=== PATIENT | female | born 1990 | race African-American/Black ===

== ENCOUNTER 2022-02-20 04:11 | Emergency (ER) | payer OTHER, SELFPAY ==
[2022-02-20 04:29] VITALS: BP 126/61; PULSE 82; RESP 17; TEMP 36.9; O2SAT 100; BMI 27.3
[2022-02-20 05:37] LABS: Hematocrit 41.6 % (37.0-47.0); Hemoglobin 13.5 g/dl (12.0-16.0); Mean Corpuscular HGB Conc 32.5 g/dl (31.0-35.0); Mean Corpuscular Hemoglobin 26.8 pg (27.0-33.0); Mean Corpuscular Volume 82.7 fL (80.0-98.0); Mean Platelet Volume 9.5 fL (9.4-12.3); Platelet Count 236 X10*3/uL (160-400); Red Blood Count 5.03 X10*6/uL (4.20-5.50); Red Cell Distribution Width 13.2 % (11.0-16.0); White Blood Count 4.7 X10*3/uL (4.8-10.8)
--- NOTE | 2022-02-20 05:50 | ED.ABDPAIN ---
HPI - Abdominal Pain General Chief Complaint: Abdominal Pain Stated Complaint: waves of stomach pain Time Seen by Provider: 02/20/22 05:50 Source: patient Mode of arrival: ambulatory Limitations: no limitations History of Present Illness HPI narrative: No significant past medical history noticed pain in upper abdomen most on the left side for last 24 hours without any nausea vomiting eating and drinking okay pain gets better after he had no fever or chills Related Data Previous Rx's Medication Instructions Recorded omeprazole 20 mg capsule,delayed 20 mg PO DAILY #30 caps 02/20/22 release Allergies Allergy/AdvReac Type Severity Reaction Status Date / Time ondansetron [From Zofran] Allergy Palpitation Verified 02/20/22 04:27 s Review of Systems Review of Systems Yes all other systems are reviewed and are negative [facility] Social History Social History Advance Directives: No Advance Directives Information Provided: Yes Physical Exam ED Vital Signs: Vital Signs - 24 hr 02/20/22 04:29 02/20/22 05:59 Temperature 98.5 F 97.6 F Pulse Rate 82 69 Respiratory Rate 17 18 Blood Pressure 126/61 126/76 Pulse Oximetry 100 96 Oxygen Delivery Method Room Air Room Air BMI result Body Mass Index 27.3 Appearance: Alert. Oriented X3. No acute distress. Eyes: PERRLA, No Nystagmus ENT: Pharynx normal. Oral Mucosa moist Neck: Normal inspection. Neck supple. CVS: Normal heart rate and rhythm. Pulses normal. Respiratory: No respiratory distress. Equal air entry bilateral, no wheezing/rales/rhonchi Abdomen: Soft mild left upper abdomen tenderness no rebound tenderness or guarding Bowel sounds are present, no mass palpable, no CVA tenderness Skin: Skin warm and dry. Normal skin color. Normal skin turgor. Extremities: No lower extremity edema. No calf tenderness Neuro: Oriented X 3. No motor deficit. No sensory deficit.No cerebellar signs , cranial nerves II-XII intact MDM - Abdominal Pain MDM Narrative Medical decision making narrative: Patient nonspecific abdominal pain likely gastritis labs stable urine negative discharge patient home on [facility] Lab Data Attestation: I reviewed the patient's lab results. Result diagrams: 02/20/22 05:32 02/20/22 05:32 Labs: Lab Results 02/20/22 02/20/2202/20/22 Range/Units 05:32 05:32 06:04 WBC 4.7 L (4.8-10.8) X10*3/uL RBC 5.03 (4.20-5.50) X10*6/uL Hgb 13.5 (12.0-16.0) g/dl Hct 41.6 (37.0-47.0) % MCV 82.7 (80.0-98.0) fL MCH 26.8 L (27.0-33.0) pg MCHC 32.5 (31.0-35.0) g/dl RDW 13.2 (11.0-16.0) % Plt Count 236 (160-400) X10*3/uL MPV 9.5 (9.4-12.3) fL Absolute Nucleated RBC 0.000 (0.0-0.012) X10*3/uL Nucleated RBC % (auto) 0.0 (0.0-0.2) /100WBC Sodium 140 (135-145) mmol/L Potassium 4.0 (3.3-5.1) mmol/L Chloride 104 (96-108) mmol/L Carbon Dioxide 26 (22-29) mmol/L Anion Gap 14 (12-20) BUN 11 (9-16) mg/dL Creatinine 0.91 (0.5-1.4) mg/dL Estim Creat Clear Calc 98.9 Estimated GFR > 60 Random Glucose 82 (60-115) mg/dL Calcium 9.9 (8.4-10.2) mg/dL Total Bilirubin 0.3 (0.0-1.0) mg/dL Direct Bilirubin < 0.2 (0.0-0.5) mg/dL AST 16 (5-31) U/L ALT 13 (0-31) U/L Alkaline Phosphatase 49 (39-117) U/L Total Protein 8.0 (6.5-8.0) g/dL Albumin 4.5 (3.5-5.0) g/dL Lipase 44 (8-78) U/L Urine Color Yellow Urine Appearance Clear Urine pH 6.0 (5.0-9.0) Ur Specific [place] 1.020 (1.005-1.025) Urine Protein Negative (Neg-Trace) mg/dL Urine Glucose (UA) Negative (Negative) mg/dL Urine Ketones Negative (Negative) mg/dL Urine Blood Negative (Negative) Urine Nitrite Negative (Negative) Ur Leukocyte Esterase Negative (Negative) Discharge Plan Discharge Clinical Impression: Gastritis Patient Disposition: Home, Self-Care Instructions: Gastritis (ED) Additional Instructions: Drink plenty of fluids Take medication for acid as prescribed Follow the PCP Prescriptions: New omeprazole 20 mg capsule,delayed release(DR/EC) 20 mg PO DAILY Qty: 30 0RF
[2022-02-20 05:59] VITALS: BP 126/76; PULSE 69; RESP 18; TEMP 36.4; O2SAT 96
[2022-02-20 06:04] LABS: Alanine Aminotransferase 13 U/L (0-31); Albumin Level 4.5 g/dL (3.5-5.0); Alkaline Phosphatase 49 U/L (39-117); Anion Gap 14 (12-20); Aspartate Amino Transferase 16 U/L (5-31); Bilirubin Direct < 0.2 mg/dL (0.0-0.5); Bilirubin Total 0.3 mg/dL (0.0-1.0); Blood Urea Nitrogen 11 mg/dL (9-16); Calcium 9.9 mg/dL (8.4-10.2); Carbon Dioxide 26 mmol/L (22-29); Chloride 104 mmol/L (96-108); Creatinine Clr Calc Pharmacy 98.9; Estimated Glomerular Filt Rate > 60; Glucose Random 82 mg/dL (60-115); Lipase 44 U/L (8-78); Sodium 140 mmol/L (135-145)
[2022-02-20] MEDS: Magnesium Hydrox/Alum Hydrox 30 ML ORAL.SUSP PO (06:06)
[2022-02-20 06:09] LABS: Appearance Urine Clear; Color Urine Yellow; Glucose Urine UA Negative (Negative); Leukocyte Esterase Urine Negative (Negative); Nitrite Urine Negative (Negative); Urine Blood Negative (Negative); Urine Ketones Negative (Negative); Urine Protein Negative (Neg-Trace)
--- OUTSIDE RECORDS SUMMARY | 2022-02-20 06:57 | XMS_ITS | Continuity of Care Document ---
:1990 Author Organization [facility] Address [address] [place] [phone]- Care Team Providers Name Role Phone Victor Hugo Florez MD Primary Care Physician [place] [facility] [place]s): 06/15/19 - 08/05/19 [facility] [address] [place] [address]- [facility] Attending Physician: Nisha Valle MD Admitting Physician: Nisha Valle MD Referring Physician: Jacinda Guerra MD Allergies, Adverse Reactions, Alerts Substance Reaction Severity Status Zofran Active Immunizations Given and Recorded Vaccine Date Status Refusal Reason tetanus/diphtheria/pertussis, acel(Tdap)1 05/31/19 Given tetanus/diphtheria/pertussis, acel(Tdap) 07/11/10 Given influenza virus vaccine, inactivated 02/22/19 Given influenza virus vaccine, inactivated 01/30/11 Given influenza virus vaccine, inactivated 07/11/10 Given Human Papillomavirus Vaccine 01/30/11 Given Human Papillomavirus Vaccine 07/11/10 Given hepatitis B adult vaccine 07/11/10 Given Hepatitis B Vaccine (old term) 06/07/09 Given Hepatitis B Vaccine (old term) 05/09/09 Given Measles/Mumps/Rubella Virus Vaccine 06/07/09 Given Measles/Mumps/Rubella Virus Vaccine 05/09/09 Given Meningococcal Conjugate Vaccine2 05/09/09 Given Hepatitis A Pediatric Vaccine 05/09/09 Given Varicella Virus Vaccine 05/09/09 Given Poliovirus Vaccine, Inactivated 04/10/09 Given Poliovirus Vaccine, Inactivated 06/24/94 Given Poliovirus Vaccine, Inactivated 02/01/93 Given Poliovirus Vaccine, Inactivated 92 Given Poliovirus Vaccine, Inactivated 92 Given diphtheria-tetanus toxoids (DT) 07/11/06 Given diphtheria-tetanus toxoids (DT) 06/24/94 Given diphtheria-tetanus toxoids (DT) 02/01/93 Given diphtheria-tetanus toxoids (DT) 92 Given diphtheria-tetanus toxoids (DT) 92 Given Measles Virus Vaccine 06/21/93 Given 1Result Comment: Patient tolerated well [id number] Note: MENCEVAX Medications ferrous sulfate 324 mg (65 mg elemental iron) oral delayed release tablet 1 tablet = 324 mg, By Mouth, Daily, # 30 tablet, 6 Refills, Maintenance, 06/14/19 14:22:00 EST, [id number], 170.18, cm, 06/14/19 14:16:00 EST, Height, 80.8, kg, 06/22/18 13:32:00 EST, Dry Weight Start Date: 06/14/19 Status: OrderedLSO for lower back pain LSO for lower back pain, See Instructions, # 1 each, Refills 0, Tot. Refills 0, Maintenance, FAX to [facility] [phone], 06/14/19 14:38:00 EST, Phone number for [facility] ; [address] [place] [address] ; [facility] Start Date: 06/14/19 Status: OrderedPrenatal Cradle See Instructions, # 1 each, Refills 0, Tot. Refills 0, Maintenance, Use as directed, 06/14/19 14:24:00 EST, Compound Start Date: 06/14/19 Status: Orderedpromethazine 25 mg rectal suppository 1 supp = 25 mg, Rectally, Every 6 hours, PRN for nausea/vomiting, # 120 supp, 1 Refills, Maintenance, 06/14/19 14:21:00 EST, Suppository, [id number], 170.18, cm, 06/14/19 14:16:00 EST, Height, 80.8, kg, 06/22/18 13:32:00 EST, Dry Weight Start Date: 06/14/19 Status: Ordered Problem List Condition Effective Dates Status Health Status Informant Genital HSV(Confirmed)1 Active Pelvic pain in (Confirmed) Active Paroxysmal SVT (supraventricular Active tachycardia)(Confirmed) (Confirmed)2 11/21/18 Active 1last outbreak in may 2018, take acyclovir as [id number] on 12/31 at Social History Social History Type Response Smoking Status Never (less than 100 in life time); Tobacco user in household: No entered on: 01/11/19 Sex
--- OUTSIDE RECORDS SUMMARY | 2022-02-20 06:57 | XMS_ITS | Continuity of Care Document ---
:1990 Author Organization [facility] Address [address] [place] [address], [address] [place] [phone]- Care Team Providers Name Role Phone Ju Hatch MD Primary Care Physician Encounter [facility] [place] Date(s): 01/10/22 - 02/09/22 [facility] [address] [place] [address], [address] [place] [id number] Allergies, Adverse Reactions, Alerts Substance Reaction Severity Status Zofran heart palpitations Active Immunizations Given and Recorded Vaccine Date Status Refusal Reason Varicella Virus Vaccine 10/01/21 Recorded Varicella Virus Vaccine 08/31/21 Recorded Varicella Virus Vaccine 05/09/09 Given SARS-CoV-2 mRNA ([id number]) vax 08/28/21 Recorde d SARS-CoV-2 (COVID-19) mRNA BNT-162b2 vac 02/23/21 Recorde d SARS-CoV-2 (COVID-19) mRNA BNT-162b2 vac 02/02/21 Recorde d tetanus/diphtheria/pertussis, acel(Tdap)1 05/31/19 Given tetanus/diphtheria/pertussis, acel(Tdap) 07/11/10 [...] Given Hepatitis A Pediatric Vaccine 05/09/09 Given Poliovirus Vaccine, Inactivated 04/10/09 Given Poliovirus Vaccine, Inactivated 06/24/94 Given Poliovirus Vaccine, Inactivated 02/01/93 Given Poliovirus Vaccine, Inactivated 92 Given Poliovirus Vaccine, Inactivated 92 Given diphtheria-tetanus toxoids (DT) 07/11/06 Given diphtheria-tetanus toxoids (DT) 06/24/94 Given diphtheria-tetanus toxoids (DT) 02/01/93 Given diphtheria-tetanus toxoids (DT) 92 Given diphtheria-tetanus toxoids (DT) 92 Given Measles Virus Vaccine 06/21/93 Given 1Result Comment: Patient tolerated well [id number] Note: MENCEVAX Medications Plan B One-Step 1.5 mg oral tablet 1.5 mg, 1, tablet, By Mouth, Once, # 1 tablet, Refills 0, Tot. Refills 0, Soft Stop, 11/14/21 15:26:00 EDT, Route to Pharmacy Electronically, [facility]/pharmacy #[id number], Partial fill upon patient request if the prescription is for a schedule II opioid drug.,... Start Date: 11/14/21 Status: OrderedvalACYclovir 500 mg oral tablet 1, tablet, By Mouth, Daily, # 30 tablet, Refills 0, Maintenance, 01/28/22 10:22:00 EDT, Route to Pharmacy Electronically, [id number], 170, cm, 11/22/21 11:47:00 EDT, Height, 78.2, kg, 11/14/21 16:02:00 EDT, Dry Weight Start Date: 01/28/22 Status: OrderedXulane 150 mcg-35 mcg/24 hr transdermal film, extended release 1 patch, Topically, Every week, apply a new patch weekly for 3 weeks, remove for 1 week, then repeatcycle, # 9 each, 4 Refills, Maintenance, 12/19/21 16:13:00 EDT, [facility]/pharmacy #[id number], Partial fill upon patient request if the prescription is for a aleja... Start Date: 12/19/21 Status: Ordered Problem List Condition Effective Dates Status Health Status Informant Anterior vaginal wall Active prolapse(Confirmed) Diastasis recti(Confirmed) Active Genital HSV(Confirmed)1 Active Paroxysmal SVT (supraventricular Active tachycardia)(Confirmed) 1last outbreak in may 2018, take acyclovir as needed Social History Social History Type Response Smoking Status Never (less than 100 in life time); Tobacco user in household: No entered on: 01/11/19 Sex Care Team PersonnelName: Ju Hatch MD Address: [address] [place] [address] [facility] [place], [place] [address]
--- OUTSIDE RECORDS SUMMARY | 2022-02-20 06:57 | XMS_ITS | Continuity of Care Document ---
:1990 Author Organization [facility] Address [address] [place] [address], [address] [place] [phone]- Care Team Providers Name Role Phone Ju Hatch MD Primary Care Physician [place] [facility] [place] 12/17/21 - 01/16/22 [facility] [employer] [facility] [address] [place] [address], [address] [place] [phone]- Allergies, Adverse Reactions, Alerts Substance Reaction Severity Status Zofran heart palpitations Active Immunizations Given and Recorded Vaccine Date Status Refusal Reason Varicella Virus Vaccine 10/01/21 Recorded Varicella Virus Vaccine 08/31/21 Recorded Varicella Virus Vaccine 05/09/09 Given SARS-CoV-2 mRNA ([id number]) vax 08/28/21 Recorde d SARS-CoV-2 (COVID-19) mRNA [...] 06/21/93 Given 1Result Comment: Patient tolerated well [id number] Note: MENCEVAX Medications Plan B One-Step 1.5 mg oral tablet 1.5 mg, 1, tablet, By Mouth, Once, # 1 tablet, Refills 0, Tot. Refills 0, Soft Stop, 11/14/21 15:26:00 EDT, Route to Pharmacy Electronically, [facility]/pharmacy #[id number], Partial fill upon patient request if the prescription is for a schedule II opioid drug.,... Start Date: 11/14/21 Status: OrderedValtrex 500 mg oral tablet 500 mg, 1, tablet, By Mouth, Daily, for 30 days, # 30 tablet, Refills 0, Tot. Refills 0, Acute 02/01/22 16:23:00 EDT, 01/02/22 16:23:00 EDT, Route to Pharmacy Electronically, [facility]/pharmacy #[id number], Partial fill upon patient request if the prescription is... Start Date: 01/02/22 Stop Date: 02/01/22 Status: OrderedXulane 150 mcg-35 mcg/24 hr transdermal film, extended release 1 patch, Topically, Every week, apply a new patch weekly for 3 weeks, remove for 1 week, then repeatcycle, # 9 each, 4 Refills, Maintenance, 12/19/21 16:13:00 EDT, [id number], Partial fill upon patient request if [...] entered on: 01/11/19 Sex Care Team PersonnelName: Mamie DONIS, Ju Johnson Address: [address] [place] [address] [facility] [address]
--- OUTSIDE RECORDS SUMMARY | 2022-02-20 06:57 | XMS_ITS | Continuity of Care Document ---
:1990 Author Organization [facility] Address [address] [place] [address]- Care Team Providers Name Role Phone Victor Hugo Florez MD Primary Care Physician [place] [facility] [place](s): 10/06/19 - 10/13/19 [facility] [address] [address]- [place] Attending Physician: Ankit Solis MD Admitting Physician: Ankit Solis MD Referring Physician: Victor Hugo Florez MD Allergies, Adverse Reactions, Alerts Substance Reaction [...] 06/21/93 Given 1Result Comment: Patient tolerated well [id number] Note: MENCEVAX Medications ferrous sulfate 324 mg (65 mg elemental iron) oral delayed release tablet 1 tablet = 324 mg, By Mouth, Daily, # 30 tablet, 6 Refills, Maintenance, 06/14/19 14:22:00 EST, [facility]/pharmacy #[id number], 170.18, cm, 06/14/19 14:16:00 EST, Height, 80.8, kg, 06/22/18 13:32:00 EST, Dry Weight Start Date: 06/14/19 Status: OrderedPrenatal Multivitamins with Vitamin B Complex, Vitamin C, Minerals and L-Methylfolate oral capsule 1 capsule, By Mouth, Daily, # 60 capsule, 3 Refills, Maintenance, 08/21/19 5:58:00 EDT, Capsule, [facility]/pharmacy #[id number], 1 capsule By Mouth Daily, 173, cm, 08/21/19 0:20:00 EDT, Height, 89.9, kg, 08/18/19 18:10:00 EDT, Dry Weight Start Date: 08/21/19 Status: Orderedpropranolol 10 mg oral tablet 10 mg, 1, tablet, By Mouth, 2 times a day, # 60 tablet, Refills 2, Tot. Refills 2, Maintenance, 08/21/19 5:58:00 EDT, Route to Pharmacy Electronically, [facility]/pharmacy #[id number], 173, cm, 08/21/19 0:20:00 EDT, Height, 89.9, kg, 08/18/19 18:10:00 EDT, Dry Weight Start Date: 08/21/19 Status: Ordered Problem List Condition Effective Dates Status Health Status Informant Anterior vaginal wall Active prolapse(Confirmed) Diastasis recti(Confirmed) Active Genital HSV(Confirmed)1 Active Pelvic pain in (Confirmed) Active Paroxysmal SVT (supraventricular Active tachycardia)(Confirmed) 1last outbreak in may 2018, take acyclovir as needed Social History Social History Type Response Smoking Status Never (less than 100 in life time); Tobacco user in household: No entered on: 01/11/19 Sex
--- OUTSIDE RECORDS SUMMARY | 2022-02-20 06:57 | XMS_ITS | Continuity of Care Document ---
:1990 Author Organization [facility] [employer] Address [address] [place] [address], [address] [place] [phone]- Care Team Providers Name Role Phone Ju Hatch MD Primary Care Physician [place] [facility] [place] 11[place]21[place]21 [facility] [employer] [address] [place] [address], [address] [place] [address] [id number] Attending Physician: Kristian Veloz MD Referring Physician: Katia Oquendo CNM Allergies, Adverse Reactions, Alerts Substance Reaction Severity Status Zofran Active Immunizations Given and Recorded Vaccine Date Status Refusal Reason SARS-CoV-2 mRNA ([id number]-[id number]) vax 08/28/21 Recorde d SARS-CoV-2 (COVID-19) mRNA [...] 06/21/93 Given 1Result Comment: Patient tolerated well [id number] Note: MENCEVAX Medications Plan B One-Step 1.5 mg oral tablet 1.5 mg, 1, tablet, By Mouth, Once, # 1 tablet, Refills 0, Tot. Refills 0, Soft Stop, 11/14/21 15:26:00 EDT, Route to Pharmacy Electronically, [facility]/pharmacy #[id number], Partial fill upon patient request if the prescription is for a schedule II opioid drug.,... Start Date: 11/14/21 Status: Ordered Problem List Condition Effective Dates Status Health Status Informant Anterior vaginal wall Active prolapse(Confirmed) Diastasis recti(Confirmed) Active Genital HSV(Confirmed)1 Active Paroxysmal SVT (supraventricular Active tachycardia)(Confirmed) 1last outbreak in may 2018, take acyclovir as needed Vital Signs Most recent to oldest [Reference Range]: 1 Height 170 cm (11/14/21 4:02 PM) Weight 78.2 kg (11/14/21 4:02 PM) Pulse Rate [55-90 bpm] 80 bpm (11/14/21 4:02 PM) Body Mass Index [18.5-24.99] 27.06 *H* (11/14/21 4:02 PM) Blood Pressure [90-138/55-84 mm Hg] 129/59 mm Hg (11/14/21 4:02 PM) Blood pressure sites Arm, right (11/14/21 4:02 PM) Dry Weight 78.2 kg (11/14/21 4:02 PM) Weight Obtained Via Standing scale (11/14/21 4:02 PM) Dry Weight Obtained Via Standing scale (11/14/21 4:02 PM) Social History Social History Type Response Smoking Status Never (less than 100 in life time); Tobacco user in household: No entered on: 01/11/19 Sex
--- OUTSIDE RECORDS SUMMARY | 2022-02-20 06:57 | XMS_ITS | Continuity of Care Document ---
:1990 Author Organization [facility] Address [address] [place] [address], [address] [place] [address]- Care Team Providers Name Role Phone Ju Hatch MD Primary Care Physician Encounter [facility] [place] Date(s): 11/08/21 - 12/08/21 [facility] [employer] [address] [place] [address], [address] [place] [phone]- Allergies, Adverse Reactions, Alerts Substance Reaction Severity Status Zofran heart palpitations Active Immunizations Given and Recorded Vaccine Date Status Refusal Reason Varicella Virus Vaccine 10/01/21 Recorded Varicella Virus Vaccine 08/31/21 Recorded Varicella Virus Vaccine 05/09/09 Given SARS-CoV-2 mRNA (juavryz-eglz-jallg) vax 08/28/21 Recorde d SARS-CoV-2 (COVID-19) mRNA [...] 06/21/93 Given 1Result Comment: Patient tolerated well [id number] Note: MENCEVAX Medications Plan B One-Step 1.5 mg oral tablet 1.5 mg, 1, tablet, By Mouth, Once, # 1 tablet, Refills 0, Tot. Refills 0, Soft Stop, 11/14/21 15:26:00 EDT, Route to Pharmacy Electronically, [facility]/pharmacy #[id number], Partial fill upon patient request if the [...]
--- OUTSIDE RECORDS SUMMARY | 2022-02-20 06:57 | XMS_ITS | Continuity of Care Document ---
:1990 Author Organization [facility] Address [address] [place] [address]- Care Team Providers Name Role Phone Gautam DONIS, Victor Hugo Primary Care Physician Encounter [facility] Date(s): 12/10/19 - 01/09/20 [facility] [address] [place] [id number] [facility] Allergies, Adverse Reactions, Alerts Substance Reaction Severity [...] 06/21/93 Given 1Result Comment: Patient tolerated well [id number] Note: MENCEVAX Medications ferrous sulfate 324 mg (65 mg elemental iron) oral delayed release tablet 1 tablet = 324 mg, By Mouth, Daily, # 30 tablet, 6 Refills, Maintenance, 06/14/19 14:22:00 EST, [facility]/pharmacy #[id number], 170.18, cm, 06/14/19 14:16:00 EST, Height, 80.8, kg, 06/22/18 13:32:00 EST, Dry Weight Start Date: 06/14/19 Status: Orderedibuprofen 800 mg oral tablet See Instructions, TAKE 1 TABLET BY MOUTH 3 TIMES A DAY, # 90 tablet, Refills 0, Acute, Instructions Replace Required Details, Route to Pharmacy Electronically, [id number], 173, cm, 11/11/19 7:59:00 EDT, Height, 89.9, kg, 08/18/19 18:10:00 EDT, . Start Date: 01/04/20 Status: OrderedNexplanon 68 mg subcutaneous implant 1 each = 68 mg, Subcutaneous Infusion, Once, # 1 each, 0 Refills, Soft Stop, 11/18/19 15:41:00 EDT, [facility], 173, cm, 11/11/19 7:59:00 EDT, Height, 89.9, kg, 08/18/19 18:10:00 EDT, Dry Weight Start Date: 11/18/19 Status: OrderedPrenatal Multivitamins with Vitamin B Complex, Vitamin C, Minerals and L-Methylfolate oral capsule 1 capsule, By Mouth, Daily, # 60 capsule, 3 Refills, Maintenance, 08/21/19 5:58:00 EDT, Capsule, [facility]/pharmacy #[id number], 1 capsule By Mouth Daily, 173, cm, 08/21/19 0:20:00 EDT, Height, 89.9, kg, 08/18/19 18:10:00 EDT, Dry Weight Start Date: 08/21/19 Status: Orderedpropranolol 10 mg oral tablet 10 mg, 1, tablet, By Mouth, 2 times a day, # 60 tablet, Refills 2, Tot. Refills 2, Maintenance, 08/21/19 5:58:00 EDT, Route to Pharmacy Electronically, [facility]/pharmacy #[id number], 173, cm, 08/21/19 0:20:00 EDT, Height, 89.9, kg, 08/18/19 18:10:00 EDT, Dry Weight Start Date: 08/21/19 Status: OrderedvalACYclovir 500 mg oral tablet 500 mg, 1, tablet, By Mouth, Every 12 hours, for 3 days, # 6 tablet, Refills 5, Tot. Refills 5, Acute 01/21/20 9:36:00 EDT, 01/03/20 9:36:00 EDT, Route to Pharmacy Electronically, [facility], 173, cm, 11/11/19 7:59:00 EDT, Height, 89.... Start Date: 01/03/20 Stop Date: 01/21/20 Status: Ordered Problem List Condition Effective Dates [...]
--- OUTSIDE RECORDS SUMMARY | 2022-02-20 06:57 | XMS_ITS | Continuity of Care Document ---
:1990 Author Organization [facility] Address [address] [place] [address]- Care Team Providers Name Role Phone Mamie DONIS, Ju Johnson Primary Care Physician Encounter [facility] Date(s): 11/22/21 - 12/22/21 [facility] [address] [place], [place] [address] Allergies, Adverse Reactions, Alerts Substance Reaction Severity Status Zofran heart palpitations Active Immunizations Given and Recorded Vaccine Date Status Refusal Reason Varicella Virus Vaccine 10/01/21 Recorded Varicella Virus Vaccine 08/31/21 Recorded Varicella Virus Vaccine 05/09/09 Given SARS-CoV-2 mRNA ([id number]) vax 08/28/21 Recorde d SARS-CoV-2 (COVID-19) mRNA [...] Virus Vaccine 06/07/09 Given Measles/Mumps/Rubella Virus Vaccine 12/22/09 Given Meningococcal Conjugate Vaccine2 05/09/09 Given Hepatitis [...] 06/21/93 Given 1Result Comment: Patient tolerated well [id number] Note: MENCEVAX Medications Plan B One-Step 1.5 mg oral tablet 1.5 mg, 1, tablet, By Mouth, Once, # 1 tablet, Refills 0, Tot. Refills 0, Soft Stop, 11/14/21 15:26:00 EDT, Route to Pharmacy Electronically, [facility]/pharmacy #[id number], Partial fill upon patient request if the prescription is for a schedule II opioid drug.,... Start Date: 11/14/21 Status: OrderedXulane 150 mcg-35 mcg/24 hr transdermal film, extended release 1 patch, Topically, Every week, apply a new patch weekly for 3 weeks, remove for 1 week, then repeatcycle, # 9 each, 4 Refills, Maintenance, 12/19/21 16:13:00 EDT, [facility]/pharmacy #[id number], Partial fill upon patient request if [...]
--- OUTSIDE RECORDS SUMMARY | 2022-02-20 06:57 | XMS_ITS | Continuity of Care Document ---
:1990 Author Organization [facility] Address [address] [place] [phone]- Care Team Providers Name Role Phone Ju Hatch MD Primary Care Physician En[place] [facility] [place] 04/16/21 - 05/16/21 [facility] [address] [place] [address]- Attending Physician: Mervin Bland Admitting Physician: Mervin Bland Referring Physician: AdmtrMervin Allergies, Adverse Reactions, Alerts Substance Reaction Severity [...] 06/21/93 Given 1Result Comment: Patient tolerated well [id number] Note: MENCEVAX Medications Scarlet 30 mg oral tablet 1 tablet = 30 mg, By Mouth, Once, # 1 tablet, 0 Refills, Soft Stop, 04/20/20 16:48:00 EST, Tablet, [facility]/pharmacy #[id number], Partial fill upon patient request if the prescription is for a schedule II opioid drug., 173, cm, 04/20/20 16:15:00 EST, Height, 94.... Start Date: 04/20/20 Status: Orderedferrous sulfate 324 mg (65 mg elemental iron) oral delayed release tablet 1 tablet = 324 mg, By Mouth, Daily, # 30 tablet, 6 Refills, Maintenance, 06/14/19 14:22:00 EST, [facility]/pharmacy #[id number], 170.18, cm, 06/14/19 14:16:00 EST, Height, 80.8, kg, 06/22/18 13:32:00 EST, Dry Weight Start Date: 06/14/19 Status: Orderedindomethacin 75 mg oral capsule, extended release 1 capsule = 75 mg, By Mouth, Daily, with food or milk, # 30 capsule, 1 Refills, Maintenance, 03/30/20 18:10:00 EST, ER Capsule, [facility]/pharmacy #[id number], 173, cm, 03/09/20 15:36:00 EDT, Height, 89.9, kg, 08/18/19 18:10:00 EDT, Dry Weight Start Date: 03/30/20 Status: Orderedmetoprolol 50 mg oral tablet, extended release 50 mg, 1, tablet, By Mouth, Daily, # 30 tablet, Refills 5, Tot. Refills 5, Maintenance, 03/29/21 11:12:00 EST, Route to Pharmacy Electronically, [facility]/pharmacy #[id number], d/c propanolol, 173, cm, 04/20/20 16:15:00 EST, Height, 94.5, kg, 04/20/20 16:15:00 ES... Start Date: 03/29/21 Stop Date: 09/25/21 Status: OrderedNexplanon 68 mg subcutaneous implant 1 each = 68 mg, Subcutaneous Infusion, Once, Pharmacy Supplied and inserted by Katia Oquendo CNM on 04/20/2020 lot#[id number] exp#06/05/2022 [facility]#[id number], # 1 each, 0 Refills, Soft Stop, 03/21/20 9:10:00 EST, [facility], 173, cm, 1... Start Date: 03/21/20 Status: OrderedPrenatal Multivitamins with Vitamin B Complex, Vitamin C, Minerals and L-Methylfolate oral capsule 1 capsule, By Mouth, Daily, # 60 capsule, 3 Refills, Maintenance, 08/21/19 5:58:00 EDT, Capsule, [id number], 1 capsule By Mouth Daily, 173, [...]
--- OUTSIDE RECORDS SUMMARY | 2022-02-20 06:57 | XMS_ITS | Continuity of Care Document ---
:1990 Author Organization [facility] Address [address] [place] [address]- Care Team Providers Name Role Phone Victor Hugo Florez MD Primary Care Physician [place] [facility] [place](s): 09/29/19 - 10/06/19 [facility] [address] [place] [address]- [facility] Encounter Diagnosis state (Discharge Diagnosis) - 09/29/19 Knee pain (Discharge Diagnosis) - 09/29/19 Mastitis (Discharge Diagnosis) - 09/29/19 Attending Physician: Victor Hugo Florez MD Allergies, Adverse [...] 06/21/93 Given 1Result Comment: Patient tolerated well [id number] Note: MENCEVAX Medications ferrous sulfate 324 mg (65 mg elemental iron) oral delayed release tablet 1 tablet = 324 mg, By Mouth, Daily, # 30 tablet, 6 Refills, Maintenance, 06/14/19 14:22:00 EST, [facility]/pharmacy #[id number], 170.18, cm, 06/14/19 14:16:00 EST, Height, 80.8, kg, 06/22/18 13:32:00 EST, Dry Weight Start Date: 06/14/19 Status: OrderedPrenatal Multivitamins with Vitamin B Complex, Vitamin C, Minerals and L-Methylfolate oral capsule 1 capsule, By Mouth, Daily, # 60 capsule, 3 Refills, Maintenance, 08/21/19 5:58:00 EDT, Capsule, [facility]/pharmacy #[id number], 1 capsule By Mouth Daily, 173, cm, 08/21/19 0:20:00 EDT, Height, 89.9, kg, 08/18/19 18:10:00 EDT, Dry Weight Start Date: 08/21/19 Status: Orderedpropranolol 10 mg oral tablet 10 mg, 1, tablet, By Mouth, 2 times a day, # 60 tablet, Refills 2, Tot. Refills 2, Maintenance, 08/21/19 5:58:00 EDT, Route to Pharmacy Electronically, [facility]/pharmacy #[id number], 173, cm, 08/21/19 0:20:00 EDT, Height, 89.9, kg, 08/18/19 18:10:00 EDT, Dry Weight Start Date: 08/21/19 Status: Ordered Problem List Condition Effective Dates Status Health Status Informant Anterior vaginal wall Active prolapse(Confirmed) Diastasis recti(Confirmed) Active Genital HSV(Confirmed)1 Active Pelvic pain in (Confirmed) Active Paroxysmal SVT (supraventricular Active tachycardia)(Confirmed) 1last outbreak in may 2018, take acyclovir as needed Diagnosis Diagnosis Type Effective Dates Health Clinical Infor mant Status Service state Discharge 09/29/19 Diagnosis Knee pain Discharge 09/29/19 Diagnosis Mastitis Discharge 09/29/19 Diagnosis Social History Social History Type Response Smoking Status Never (less than 100 in life time); Tobacco user in household: No entered on: 01/11/19 Sex
--- OUTSIDE RECORDS SUMMARY | 2022-02-20 06:57 | XMS_ITS | Continuity of Care Document ---
:1990 Author Organization [facility] Address [address] [place] [address]- Care Team Providers Name Role Phone Gautam DONIS, Victor Hugo Primary Care Physician [facility]counter [facility] Date(s): 11/23/19 - 12/23/19 [facility] [address] [place] [address]- [facility] Allergies, Adverse Reactions, Alerts Substance [...] 06/21/93 Given 1Result Comment: Patient tolerated well [id number] Note: MENCEVAX Medications ferrous sulfate 324 mg (65 mg elemental iron) oral delayed release tablet 1 tablet = 324 mg, By Mouth, Daily, # 30 tablet, 6 Refills, Maintenance, 06/14/19 14:22:00 EST, [facility]/pharmacy #[id number], 170.18, cm, 06/14/19 14:16:00 EST, Height, 80.8, kg, 06/22/18 13:32:00 EST, Dry Weight Start Date: 06/14/19 Status: OrderedNexplanon 68 mg subcutaneous implant 1 each = 68 mg, Subcutaneous Infusion, Once, # 1 each, 0 Refills, Soft Stop, 11/18/19 15:41:00 EDT, [facility], 173, cm, 11/11/19 7:59:00 EDT, Height, 89.9, kg, 08/18/19 18:10:00 EDT, Dry Weight Start Date: 11/18/19 Status: OrderedPrenatal Multivitamins with Vitamin B Complex, Vitamin C, Minerals and L-Methylfolate oral capsule 1 capsule, By Mouth, Daily, # 60 capsule, 3 Refills, Maintenance, 08/21/19 5:58:00 EDT, Capsule, [facility]/pharmacy #[id number], 1 capsule By Mouth Daily, 173, cm, 08/21/19 0:20:00 EDT, Height, 89.9, kg, 08/18/19 18:10:00 EDT, Dry Weight Start Date: 08/21/19 Status: Orderedpropranolol 10 mg oral tablet 10 mg, 1, tablet, By Mouth, 2 times a day, # 60 tablet, Refills 2, Tot. Refills 2, Maintenance, 08/21/19 5:58:00 EDT, Route to Pharmacy Electronically, [facility]/pharmacy #[id number], 173, cm, 08/21/19 0:20:00 EDT, [...]
--- OUTSIDE RECORDS SUMMARY | 2022-02-20 06:57 | XMS_ITS | Continuity of Care Document ---
:1990 Author Organization [facility] Address [address] [place] [address]- Care Team Providers Name Role Phone Victor Hugo Florez MD Primary Care Physician Encounter [facility] Date(s): 09/29/19 - 10/29/19 [facility] [address] [place] [address]- [facility] Attending Physician: Mervin Bland Admitting Physician: Mervin [...] 06/21/93 Given 1Result Comment: Patient tolerated well [id number] Note: MENCEVAX Medications ferrous sulfate 324 mg (65 mg elemental iron) oral delayed release tablet 1 tablet = 324 mg, By Mouth, Daily, # 30 tablet, 6 Refills, Maintenance, 06/14/19 14:22:00 EST, [facility]/pharmacy #[id number], 170.18, cm, 06/14/19 14:16:00 EST, Height, 80.8, kg, 06/22/18 13:32:00 EST, Dry Weight Start Date: 06/14/19 Status: OrderedPrenatal Multivitamins with Vitamin B Complex, Vitamin C, Minerals and L-Methylfolate oral capsule 1 capsule, By Mouth, Daily, # 60 capsule, 3 Refills, Maintenance, 08/21/19 5:58:00 EDT, Capsule, [facility]/pharmacy #[id number], 1 capsule By Mouth Daily, 173, cm, 08/21/19 0:20:00 EDT, Height, 89.9, kg, 08/18/19 18:10:00 EDT, Dry Weight Start Date: 08/21/19 Status: Orderedpropranolol 10 mg oral tablet 10 mg, 1, tablet, By Mouth, 2 times a day, # 60 tablet, Refills 2, Tot. Refills 2, Maintenance, 08/21/19 5:58:00 EDT, Route to Pharmacy Electronically, [facility]/pharmacy #[id number], 173, cm, 08/21/19 0:20:00 EDT, [...]
--- OUTSIDE RECORDS SUMMARY | 2022-02-20 06:57 | XMS_ITS | Continuity of Care Document ---
:1990 Author Organization [facility] Address [address] [place] [address]- Care Team Providers Name Role Phone Victor Hugo Florez MD Primary Care Physician Encounter [facility] [place] Date(s): 08/06/19 - 08/06/[address] [address]- [facility] Discharge Disposition: A-D/C Home Attending Physician: Ankit Viera MD Admitting Physician: Ankit Viera MD Referring Physician: Ankit Viera MD Allergies, Adverse Reactions, Alerts Substance Reaction [...] 06/21/93 Given 1Result Comment: Patient tolerated well [id number] Note: MENCEVAX Medications ferrous sulfate 324 mg [...] Maintenance, FAX to [facility] [phone], 06/14/19 14:38:00 EST, Phone number for [facility] ; [address] [place] [address] ; [facility] Start Date: 06/14/19 Status: OrderedPrenatal Cradle See Instructions, # 1 each, Refills 0, Tot. Refills 0, Maintenance, Use as directed, 06/14/19 14:24:00 EST, Compound Start Date: 06/14/19 Status: OrderedPrenatal Multivitamins By Mouth, Daily, 0 Refills, Maintenance, 08/06/19 11:04:00 EDT Start Date: 08/06/19 Status: Orderedpromethazine 25 mg rectal suppository 1 [...] outbreak in may 2018, take acyclovir as [id number] on 12/31 at [facility] Most recent to oldest [Reference Range]: 1 Oxygen Saturation [94-100 %] 100 % (08/06/19 11:02 AM) Pulse Rate [55-90 bpm] 116 bpm *H* (08/06/19 11:02 AM) Blood Pressure [90-138/55-84 mm Hg] 109/72 mm Hg (08/06/19 11:02 AM) Respiratory Rate [16-30 br/min] 20 br/min (08/06/19 11:02 AM) Temperature [96.8-100.4 DegF] 98.6 DegF (08/06/19 11:02 AM) Mode of Delivery (Oxygen) Room air (08/06/19 11:02 AM) Blood pressure sites Arm, right (08/06/19 11:02 AM) Temperature Route Oral (08/06/19 11:02 AM) Social History Social History Type Response Smoking Status Never (less than 100 in life time); Tobacco user in household: No entered on: 01/11/19 Sex
--- OUTSIDE RECORDS SUMMARY | 2022-02-20 06:57 | XMS_ITS | Continuity of Care Document ---
:1990 Author Organization [facility] Address [address] [place] [address]- Care Team Providers Name Role Phone Victor Hugo Florez MD Primary Care Physician Encounter [facility] [place] Date(s): 08/18/19 - 08/28/19 [facility] [address] [place] [address]- [facility] Attending Physician: Mervin Bland Admitting Physician: Mervin [...] 06/21/93 Given 1Result Comment: Patient tolerated well [id number] Note: MENCEVAX Medications ferrous sulfate 324 mg (65 mg elemental iron) oral delayed release tablet 1 tablet = 324 mg, By Mouth, Daily, # 30 tablet, 6 Refills, Maintenance, 06/14/19 14:22:00 EST, [facility]/pharmacy #[id number], 170.18, cm, 06/14/19 14:16:00 EST, Height, 80.8, kg, 06/22/18 13:32:00 EST, Dry Weight Start Date: 06/14/19 Status: Orderedibuprofen 800 mg oral tablet 800 mg, 1, tablet, By Mouth, 3 times a day, # 90 tablet, Refills 0, Tot. Refills 0, Acute 09/21/19 0:00:00 EDT, 08/21/19 9:54:00 EDT, Route to Pharmacy Electronically, [facility]/pharmacy #[id number], 173, cm, 08/21/19 0:20:00 EDT, Height, 89.9, kg, 08/18/19 18:10... Start Date: 08/21/19 Stop Date: 09/21/19 Status: OrderedPrenatal Multivitamins with Vitamin B Complex, Vitamin C, Minerals and L-Methylfolate oral capsule 1 capsule, By Mouth, Daily, # 60 capsule, 3 Refills, Maintenance, 08/21/19 5:58:00 EDT, Capsule, [facility]/pharmacy #[id number], 1 capsule By Mouth Daily, 173, cm, 08/21/19 0:20:00 EDT, Height, 89.9, kg, 08/18/19 18:10:00 EDT, Dry Weight Start Date: 08/21/19 Status: Orderedpropranolol 10 mg oral tablet 10 mg, 1, tablet, By Mouth, 2 times a day, # 60 tablet, Refills 2, Tot. Refills 2, Maintenance, 08/21/19 5:58:00 EDT, Route to Pharmacy Electronically, [facility]/pharmacy #[id number], 173, cm, 08/21/19 0:20:00 EDT, Height, 89.9, kg, 08/18/19 18:10:00 EDT, Dry Weight Start Date: 08/21/19 Status: OrderedTylenol 325 mg oral capsule 2 capsule = 650 mg, By Mouth, Every 4 hours, PRN as needed for pain, # 20 capsule, 0 Refills, Acute 09/21/19 0:00:00 EDT, 08/21/19 9:54:00 EDT, Capsule, [facility]/pharmacy #[id number], 173, cm, 08/21/19 0:20:00 EDT, Height, 89.9, kg, 08/18/19 18:10:00 EDT, Dry We... Start Date: 08/21/19 Stop Date: 09/21/19 Status: Ordered Problem List Condition Effective Dates [...]
--- OUTSIDE RECORDS SUMMARY | 2022-02-20 06:57 | XMS_ITS | Continuity of Care Document ---
:1990 Author Organization [facility] Address [address] [place] [address], [address] [place] [address]- Care Team Providers Name Role Phone Victor Hugo Florez MD Primary Care Physician [facility]counter [facility] Date(s): 04/07/20 - 05/07/20 [facility] [address] [facility], [address] [place] [address] Allergies, Adverse Reactions, Alerts Substance Reaction Severity [...] 06/21/93 Given 1Result Comment: Patient tolerated well [id number] Note: MENCEVAX Medications Scarlet 30 mg oral tablet 1 tablet = 30 mg, By Mouth, Once, # 1 tablet, 0 Refills, Soft Stop, 04/20/20 16:48:00 EST, Tablet, [facility]/pharmacy #[id number], Partial fill upon patient request if the prescription is for a schedule II opioid drug., 173, cm, 04/20/20 16:15:00 EST, Height, 94.... Start Date: 04/20/20 Status: Orderedferrous sulfate 324 mg (65 mg elemental iron) oral delayed release tablet 1 tablet = 324 mg, By Mouth, Daily, # 30 tablet, 6 Refills, Maintenance, 06/14/19 14:22:00 EST, [facility]/pharmacy #[id number], 170.18, cm, 06/14/19 14:16:00 EST, Height, 80.8, kg, 06/22/18 13:32:00 EST, Dry Weight Start Date: 06/14/19 Status: Orderedindomethacin 75 mg oral capsule, extended release 1 capsule = 75 mg, By Mouth, Daily, with food or milk, # 30 capsule, 1 Refills, Maintenance, 03/30/20 18:10:00 EST, ER Capsule, [facility]/pharmacy #[id number], 173, cm, 03/09/20 15:36:00 EDT, Height, 89.9, kg, 08/18/19 18:10:00 EDT, Dry Weight Start Date: 03/30/20 Status: OrderedNexplanon 68 mg subcutaneous implant 1 each = 68 mg, Subcutaneous Infusion, Once, Pharmacy Supplied and inserted by Katia MORALES on 04/20/2020 lot#[id number] exp#06/05/[address] [facility]#[id number], # 1 each, 0 Refills, Soft Stop, 03/21/20 9:10:00 EST, [facility], 173, cm, 1... Start Date: 03/21/20 Status: OrderedPrenatal Multivitamins with Vitamin B Complex, Vitamin C, Minerals and L-Methylfolate oral capsule 1 capsule, By Mouth, Daily, # 60 capsule, 3 Refills, Maintenance, 08/21/19 5:58:00 EDT, Capsule, [facility]/pharmacy #[id number], 1 capsule By Mouth Daily, 173, cm, 08/21/19 0:20:00 EDT, Height, 89.9, kg, 08/18/19 18:10:00 EDT, Dry Weight Start Date: 08/21/19 Status: Orderedpropranolol 10 mg oral tablet 10 mg, 1, tablet, By Mouth, 2 times a day, # 60 tablet, Refills 2, Tot. Refills 2, Maintenance, 08/21/19 5:58:00 EDT, Route to Pharmacy Electronically, [facility]/pharmacy #[id number], 173, cm, 08/21/19 0:20:00 EDT, [...]
--- OUTSIDE RECORDS SUMMARY | 2022-02-20 06:57 | XMS_ITS | Continuity of Care Document ---
:1990 Author Organization [facility] Address [address] [place] [id number]- Care Team Providers Name Role Phone Victor Hugo Florez MD Primary Care Physician Encounter [facility] Date(s): 09/28/19 - 10/28/19 [facility] [address] [place] [address]- [facility] Attending Physician: Mervin Bland Admitting Physician: [...] 06/21/93 Given 1Result Comment: Patient tolerated well [id number] Note: MENCEVAX Medications ferrous sulfate 324 mg (65 mg elemental iron) oral delayed release tablet 1 tablet = 324 mg, By Mouth, Daily, # 30 tablet, 6 Refills, Maintenance, 06/14/19 14:22:00 EST, [facility]/pharmacy #[id number], 170.18, cm, 06/14/19 14:16:00 EST, Height, 80.8, kg, 06/22/18 13:32:00 EST, Dry Weight Start Date: 06/14/19 Status: OrderedPrenatal Multivitamins with Vitamin B Complex, Vitamin C, Minerals and L-Methylfolate oral capsule 1 capsule, By Mouth, Daily, # 60 capsule, 3 Refills, Maintenance, 08/21/19 5:58:00 EDT, Capsule, [facility]/pharmacy #[id number], 1 capsule By Mouth Daily, 173, cm, 08/21/19 0:20:00 EDT, Height, 89.9, kg, 08/18/19 18:10:00 EDT, Dry Weight Start Date: 08/21/19 Status: Orderedpropranolol 10 mg oral tablet 10 mg, 1, tablet, By Mouth, 2 times a day, # 60 tablet, Refills 2, Tot. Refills 2, Maintenance, 08/21/19 5:58:00 EDT, Route to Pharmacy Electronically, [facility]/pharmacy #[id number], 173, cm, 08/21/19 0:20:00 EDT, Height, [...]
--- OUTSIDE RECORDS SUMMARY | 2022-02-20 06:57 | XMS_ITS | Continuity of Care Document ---
:1990 Author Organization [facility] Address [address] [place] [address]- Care Team Providers Name Role Phone Ju Hatch MD Primary Care Physician Encounter [facility] [place] Date(s): 09/12/21 - 01/10/22 [facility] [address] [place], [place] [address] Attending Physician: Ju Hatch MD Allergies, Adverse Reactions, Alerts Substance Reaction Severity Status Zofran heart palpitations Active Immunizations Given and Recorded Vaccine Date Status Refusal Reason Varicella Virus Vaccine 10/01/21 Recorded Varicella Virus Vaccine 08/31/21 Recorded Varicella Virus Vaccine 05/09/09 Given SARS-CoV-2 mRNA ([id number]) vax 08/28/21 Recorde d SARS-CoV-2 (COVID-19) mRNA [...] 06/21/93 Given 1Result Comment: Patient tolerated well [id number] Note: MENCEVAX Medications Plan B One-Step 1.5 mg oral tablet 1.5 mg, 1, tablet, By Mouth, Once, # 1 tablet, Refills 0, Tot. Refills 0, Soft Stop, 11/14/21 15:26:00 EDT, Route to Pharmacy Electronically, [facility]/pharmacy #[id number], Partial fill upon patient request if the prescription is for a schedule II opioid drug.,... Start Date: 11/14/21 Status: OrderedValtrex 500 mg oral tablet 500 mg, 1, tablet, By Mouth, Daily, for 30 days, # 30 tablet, Refills 0, Tot. Refills 0, Acute 02/01/22 16:23:00 EDT, 01/02/22 16:23:00 EDT, Route to Pharmacy Electronically, [id number], Partial fill upon patient request [...] Team PersonnelName: Mamie DONIS, Ju Johnson Address: [address] [place] [address] [facility] [address]
--- OUTSIDE RECORDS SUMMARY | 2022-02-20 06:57 | XMS_ITS | Continuity of Care Document ---
:1990 Author Organization [facility] Address [address] [place] [address]- Care Team Providers Name Role Phone Victor Hugo Florez MD Primary Care Physician [facility] Date(s): 06/01/19 - 06/08/[address] [address]- [facility] Attending Physician: Km Harper MD Allergies, Adverse Reactions, Alerts Substance Reaction [...] 06/21/93 Given 1Result Comment: Patient tolerated well [id number] Note: MENCEVAX Medications Colace sodium 100 mg oral capsule 100 mg, 1, capsule, By Mouth, 2 times a day, PRN, # 60 capsule, Refills 3, Tot. Refills 3, Maintenance, for constipation, 03/22/19 14:04:07 EST, Route to Pharmacy Electronically, [id number], [id number] Start Date: 03/22/19 Status: Orderedmagnesium oxide 400 mg oral tablet 1 tablet = 400 mg, By Mouth, 2 times a day, # 60 tablet, 1 Refills, Maintenance, 04/21/19 11:17:49 EST, 170.18, cm, 04/14/19 13:59:39 EST, Height, 80.8, kg, 06/22/18 13:32:55 EST, Dry Weight Start Date: 04/21/19 Status: OrderedPNV oral tablet 1 tablet, By Mouth, Daily, 0 Refills, Maintenance, 03/22/19 14:02:42 EST Start Date: 03/22/19 Status: Ordered Problem List Condition Effective Dates Status Health Status Informant Genital HSV(Confirmed)1 Active Hyperemesis gravidarum(Confirmed) Active Paroxysmal SVT (supraventricular Active tachycardia)(Confirmed) (Confirmed)2 11/21/18 Active 1last outbreak in may 2018, take acyclovir as [id number]/S on 12/31 at Social History Social History Type Response Smoking Status Never (less than 100 in life time); Tobacco user in household: No entered on: 01/11/19 Sex
--- OUTSIDE RECORDS SUMMARY | 2022-02-20 06:57 | XMS_ITS | Continuity of Care Document ---
:1990 Author Organization [facility] Address [address] [place] [address]- Care Team Providers Name Role Phone Ju Hatch MD Primary Care Physician [facility]counter [facility] Date(s): 05/22/21 - 06/21/21 [facility] [address] [place], [place] [address] Allergies, Adverse Reactions, Alerts Substance [...] 06/21/93 Given 1Result Comment: Patient tolerated well [id number] Note: MENCEVAX Medications Nexplanon 68 mg subcutaneous implant 1 each = 68 mg, Subcutaneous Infusion, Once, Pharmacy Supplied and inserted by Katia Oquendo CNM on 04/20/2020 lot#[id number] exp#06/05/2022 [facility]#[id number], # 1 each, 0 Refills, Soft Stop, 03/21/20 9:10:00 EST, [facility], 173, cm, 1... Start Date: 03/21/20 Status: Ordered Problem List Condition Effective Dates [...]
--- OUTSIDE RECORDS SUMMARY | 2022-02-20 06:58 | XMS_ITS | Continuity of Care Document ---
:1990 Author Organization [facility] Address [address] [place] [address]- Care Team Providers Name Role Phone Victor Hugo Florez MD Primary Care Physician [facility] Date(s): 08/31/19 - 09/07/19 [facility] [address] [place] [address]- [facility] Attending Physician: Frida Muro MD Allergies, Adverse Reactions, Alerts Substance Reaction [...] 06/21/93 Given 1Result Comment: Patient tolerated well [id number] Note: MENCEVAX Medications clindamycin 150 mg oral capsule 3 capsule = 450 mg, By Mouth, Every 8 hours, for 7 days, # 63 capsule, 0 Refills, Acute 09/13/19 9:54:00 EDT, 09/06/19 9:54:00 EDT, Capsule, [facility]/pharmacy #[id number], please note this is a second course of Clindamycin to complete a 14 day course. Dx: mastit... Start Date: 09/06/19 Stop Date: 09/13/19 Status: Orderedferrous sulfate 324 mg (65 mg elemental iron) oral delayed release tablet 1 tablet = 324 mg, By Mouth, Daily, # 30 tablet, 6 Refills, Maintenance, 06/14/19 14:22:00 EST, [facility]/pharmacy #[id number], 170.18, cm, 06/14/19 14:16:00 EST, Height, 80.8, kg, 06/22/18 13:32:00 EST, Dry Weight Start Date: 06/14/19 Status: Orderedibuprofen 800 mg oral tablet 800 mg, 1, tablet, By Mouth, 3 times a day, # 90 tablet, Refills 0, Tot. Refills 0, Acute 09/21/19 0:00:00 EDT, 08/21/19 9:54:00 EDT, Route to Pharmacy Electronically, [facility]/pharmacy #[id number], 173, cm, 08/21/19 0:20:00 EDT, Height, 89.9, kg, 08/18/19 18:10... Start Date: 08/21/19 Stop Date: 09/21/19 Status: OrderedPrenatal Multivitamins with Vitamin B Complex, Vitamin C, Minerals and L-Methylfolate oral capsule 1 capsule, By Mouth, Daily, # 60 capsule, 3 Refills, Maintenance, 08/21/19 5:58:00 EDT, Capsule, [facility]/pharmacy #[id number], 1 capsule By Mouth Daily, 173, cm, 08/21/19 0:20:00 EDT, Height, 89.9, kg, 08/18/19 18:10:00 EDT, Dry Weight Start Date: 08/21/19 Status: Orderedpropranolol 10 mg oral tablet 10 mg, 1, tablet, By Mouth, 2 times a day, # 60 tablet, Refills 2, Tot. Refills 2, Maintenance, 08/21/19 5:58:00 EDT, Route to Pharmacy Electronically, [facility]/pharmacy #[id number], 173, cm, 08/21/19 0:20:00 EDT, Height, 89.9, kg, 08/18/19 18:10:00 EDT, Dry Weight Start Date: 08/21/19 Status: OrderedTylenol 325 mg oral capsule 2 capsule = 650 mg, By Mouth, Every 4 hours, PRN as needed for pain, # 20 capsule, 0 Refills, Acute 09/21/19 0:00:00 EDT, 08/21/19 9:54:00 EDT, Capsule, [facility]/pharmacy #[id number], 173, cm, 08/21/19 0:20:00 EDT, [...] recent to oldest [Reference Range]: 1 Height 173 cm (08/31/19 11:04 AM) Weight 87.5 kg (08/31/19 11:04 AM) Oxygen Saturation [94-100 %] 98 % (08/31/19 11:04 AM) Pulse Rate [55-90 bpm] 77 bpm (08/31/19 11:04 AM) Body Mass Index [18.5-24.99] 29.24 *H* (08/31/19 11:04 AM) Blood Pressure [90-138/55-84 mm Hg] 110/66 mm Hg (08/31/19 11:04 AM) Respiratory Rate [16-30 br/min] 16 br/min (08/31/19 11:04 AM) Temperature [96.8-100.4 DegF] 98.7 DegF (08/31/19 11:04 AM) Mode of Delivery (Oxygen) Room air (08/31/19 11:04 AM) Blood pressure sites Arm, left (08/31/19 11:04 AM) Temperature Route Oral (08/31/19 11:04 AM) Weight Obtained Via Standing scale (08/31/19 11:04 AM) Social History Social History Type Response Smoking Status Never (less than 100 in life time); Tobacco user in household: No entered on: 01/11/19 Sex
--- OUTSIDE RECORDS SUMMARY | 2022-02-20 06:58 | XMS_ITS | Continuity of Care Document ---
:1990 Author Organization [facility] Address [address] [place] [address]- Care Team Providers Name Role Phone Mamie DONIS, Ju Johnson Primary Care Physician [facility] Date[facility]s): 11/14/21 - 12/14/21 [facility] [address] [place] [address]- Allergies, Adverse Reactions, Alerts Substance Reaction Severity Status Zofran heart palpitations Active Immunizations Given and Recorded Vaccine Date Status Refusal Reason Varicella Virus Vaccine 10/01/21 Recorded Varicella Virus Vaccine 08/31/21 Recorded Varicella Virus Vaccine 05/09/09 Given SARS-CoV-2 mRNA ([id number]) vax 08/28/21 Recorde d SARS-CoV-2 (COVID-19) mRNA [...] 06/21/93 Given 1Result Comment: Patient tolerated well [id number] Note: MENCEVAX Medications Plan B One-Step 1.5 mg oral tablet 1.5 mg, 1, tablet, By Mouth, Once, # 1 tablet, Refills 0, Tot. Refills 0, Soft Stop, 11/14/21 15:26:00 EDT, Route to Pharmacy Electronically, [facility]/pharmacy #[id number], Partial fill upon patient request if the [...]
--- OUTSIDE RECORDS SUMMARY | 2022-02-20 06:58 | XMS_ITS | Continuity of Care Document ---
:1990 Author Organization [facility] ic Address [address] [place] [address]- Care Team Providers Name Role Phone Victor Hugo Florez MD Primary Care Physician [facility] Date(s): 01/04/20 - 02/03/[address] [address]- [facility] Allergies, Adverse Reactions, Alerts Substance Reaction Severity [...] 06/21/93 Given 1Result Comment: Patient tolerated well [id number] Note: MENCEVAX Medications ferrous sulfate 324 mg (65 mg elemental iron) oral delayed release tablet 1 tablet = 324 mg, By Mouth, Daily, # 30 tablet, 6 Refills, Maintenance, 06/14/19 14:22:00 EST, [facility]/pharmacy #[id number], 170.18, cm, 06/14/19 14:16:00 EST, Height, 80.8, kg, 06/22/18 13:32:00 EST, Dry Weight Start Date: 06/14/19 Status: Orderedibuprofen 800 mg oral tablet See Instructions, TAKE 1 TABLET BY MOUTH 3 TIMES A DAY, # 90 tablet, Refills 0, Acute, Instructions Replace Required Details, Route to Pharmacy Electronically, [facility]ORE [id number], 173, cm, 11/11/19 7:59:00 EDT, Height, 89.9, kg, 08/18/19 18:10:00 EDT, . Start Date: 01/04/20 Status: OrderedNexplanon 68 mg subcutaneous implant 1 each = 68 mg, Subcutaneous Infusion, Once, # 1 each, 0 Refills, Soft Stop, 11/18/19 15:41:00 EDT, [facility], 173, cm, 11/11/19 7:59:00 EDT, Height, 89.9, kg, 08/18/19 18:10:00 EDT, Dry Weight Start Date: 11/18/19 Status: OrderedPrenatal Multivitamins with Vitamin B Complex, Vitamin C, Minerals and L-Methylfolate oral capsule 1 capsule, By Mouth, Daily, # 60 capsule, 3 Refills, Maintenance, 08/21/19 5:58:00 EDT, Capsule, [facility]/pharmacy #[id number], 1 capsule By Mouth Daily, 173, cm, 08/21/19 0:20:00 EDT, Height, 89.9, kg, 08/18/19 18:10:00 EDT, Dry Weight Start Date: 08/21/19 Status: Orderedpropranolol 10 mg oral tablet 10 mg, 1, tablet, By Mouth, 2 times a day, # 60 tablet, Refills 2, Tot. Refills 2, Maintenance, 08/21/19 5:58:00 EDT, Route to Pharmacy Electronically, [facility]/pharmacy #[id number], 173, cm, 08/21/19 0:20:00 EDT, [...]
--- OUTSIDE RECORDS SUMMARY | 2022-02-20 06:58 | XMS_ITS | Continuity of Care Document ---
:1990 Author Organization [facility] p Address [address] [place] [address], [address] [place] [address]- Care Team Providers Name Role Phone Gautam DONIS, Victor Hugo Primary Care Physician Encounter [facility] Date(s): 06/08/19 - 10/06/19 [facility] [place] [email or web address] [address] [facility], [address] [place] [address]- [facility] Attending Physician: Jacinda Guerra MD Referring Physician: Katia Oquendo CNM Allergies, [...] 06/21/93 Given 1Result Comment: Patient tolerated well [id number] Note: MENCEVAX Medications ferrous sulfate 324 mg (65 mg elemental iron) oral delayed release tablet 1 tablet = 324 mg, By Mouth, Daily, # 30 tablet, 6 Refills, Maintenance, 06/14/19 14:22:00 EST, [facility]/pharmacy #[id number], 170.18, cm, 06/14/19 14:16:00 EST, Height, 80.8, kg, 06/22/18 13:32:00 EST, Dry Weight Start Date: 06/14/19 Status: OrderedPrenatal Multivitamins with Vitamin B Complex, Vitamin C, Minerals and L-Methylfolate oral capsule 1 capsule, By Mouth, Daily, # 60 capsule, 3 Refills, Maintenance, 08/21/19 5:58:00 EDT, Capsule, [facility]/pharmacy #[id number], 1 capsule By Mouth Daily, 173, cm, 08/21/19 0:20:00 EDT, Height, 89.9, kg, 08/18/19 18:10:00 EDT, Dry Weight Start Date: 08/21/19 Status: Orderedpropranolol 10 mg oral tablet 10 mg, 1, tablet, By Mouth, 2 times a day, # 60 tablet, Refills 2, Tot. Refills 2, Maintenance, 08/21/19 5:58:00 EDT, Route to Pharmacy Electronically, [facility]/pharmacy #[id number], 173, cm, 08/21/19 0:20:00 EDT, Height, [...]
--- OUTSIDE RECORDS SUMMARY | 2022-02-20 06:58 | XMS_ITS | Continuity of Care Document ---
:1990 Author Organization [facility] Address [address] [place] [address], [address] [place] [address]- Care Team Providers Name Role Phone Victor Hugo Florez MD Primary Care Physician Encounter [facility] Date(s): 07/27/19 - 09/01/19 [facility] [employer] [address] [place] [address], [address] [place] [address]- Attending Physician: Katia Oquendo CNM Admitting Physician: Katia Oquendo CNM Referring Physician: Katia Oquendo CNM Allergies, Adverse [...] 06/21/93 Given 1Result Comment: Patient tolerated well [id number] Note: MENCEVAX Medications clindamycin 150 mg oral capsule 3 capsule = 450 mg, By Mouth, Every 8 hours, for 7 days, # 63 capsule, 0 Refills, Acute 09/07/19 11:05:00 EDT, 08/31/19 11:05:00 EDT, Capsule, [facility]/pharmacy #[id number], 173, cm, 08/31/19 11:04:00 EDT, Height, 89.9, kg, 08/18/19 18:10:00 EDT, Dry Weight Start Date: 08/31/19 Stop Date: 09/07/19 Status: Orderedferrous sulfate 324 mg (65 mg elemental iron) oral delayed release tablet 1 tablet = 324 mg, By Mouth, Daily, # 30 tablet, 6 Refills, Maintenance, 06/14/19 14:22:00 EST, [facility]/pharmacy #[id number], 170.18, cm, 06/14/19 14:16:00 EST, Height, 80.8, kg, 06/22/18 13:32:00 EST, Dry Weight Start Date: 06/14/19 Status: Orderedibuprofen 800 mg oral tablet 800 mg, 1, tablet, By Mouth, 3 times a day, # 90 tablet, Refills 0, Tot. Refills 0, Acute 09/21/19 0:00:00 EDT, 08/21/19 9:54:00 EDT, Route to Pharmacy Electronically, [facility]/pharmacy #[id number], 173, cm, 08/21/19 0:20:00 EDT, Height, 89.9, kg, 08/18/19 18:10... Start Date: 08/21/19 Stop Date: 09/21/19 Status: OrderedPrenatal Multivitamins with Vitamin B Complex, Vitamin C, Minerals and L-Methylfolate oral capsule 1 capsule, By Mouth, Daily, # 60 capsule, 3 Refills, Maintenance, 08/21/19 5:58:00 EDT, Capsule, [facility]/pharmacy #[id number], 1 capsule By Mouth Daily, 173, cm, 08/21/19 0:20:00 EDT, Height, 89.9, kg, 08/18/19 18:10:00 EDT, Dry Weight Start Date: 08/21/19 Status: Orderedpropranolol 10 mg oral tablet 10 mg, 1, tablet, By Mouth, 2 times a day, # 60 tablet, Refills 2, Tot. Refills 2, Maintenance, 08/21/19 5:58:00 EDT, Route to Pharmacy Electronically, [facility]/pharmacy #[id number], 173, cm, 08/21/19 0:20:00 EDT, Height, 89.9, kg, 08/18/19 18:10:00 EDT, Dry Weight Start Date: 08/21/19 Status: OrderedTylenol 325 mg oral capsule 2 capsule = 650 mg, By Mouth, Every 4 hours, PRN as needed for pain, # 20 capsule, 0 Refills, Acute 09/21/19 0:00:00 EDT, 08/21/19 9:54:00 EDT, Capsule, [facility]/pharmacy #[id number], 173, cm, 08/21/19 0:20:00 [...]
--- OUTSIDE RECORDS SUMMARY | 2022-02-20 06:58 | XMS_ITS | Continuity of Care Document ---
:1990 Author Organization [facility] [employer] p Address [address] [place] [address], [address] [place] [address]- Care Team Providers Name Role Phone Victor Hugo Florez MD Primary Care Physician Encounter [facility] Date(s): 02/22/19 - 06/16/19 [facility] [employer] [facility] [address] [facility], [address] [place] [address]- Attending Physician: Jacinda Guerra MD Referring Physician: [...] 06/21/93 Given 1Result Comment: Patient tolerated well [id number] Note: MENCEVAX Medications Colace sodium 100 mg oral capsule 100 mg, 1, capsule, By Mouth, 2 times a day, PRN, # 60 capsule, Refills 3, Tot. Refills 3, Maintenance, for constipation, 03/22/19 14:04:07 EST, Route to Pharmacy Electronically, [id number], [facility]/pharmacy #[id number] Start Date: 03/22/19 Status: Orderedferrous sulfate 324 mg (65 mg elemental iron) oral delayed release tablet 1 tablet = 324 mg, By Mouth, Daily, # 30 tablet, 6 Refills, Maintenance, 06/14/19 14:22:00 EST, [facility]/pharmacy #[id number], 170.18, cm, 06/14/19 14:16:00 EST, Height, 80.8, kg, 06/22/18 13:32:00 EST, Dry Weight Start Date: 06/14/19 Status: OrderedLSO for lower back pain LSO for lower back pain, See Instructions, # 1 each, Refills 0, Tot. Refills 0, Maintenance, FAX to [facility] [phone], 06/14/19 14:38:00 EST, Phone number for [facility] ; [address] [place] [address] ; WZahira Godinez... Start Date: 06/14/19 Status: Orderedmagnesium oxide 400 mg oral tablet 1 tablet = 400 mg, By Mouth, 2 times a day, # 60 tablet, 1 Refills, Maintenance, 04/21/19 11:17:49 EST, 170.18, cm, 04/14/19 13:59:39 EST, Height, 80.8, kg, 06/22/18 13:32:55 EST, Dry Weight Start Date: 04/21/19 Status: OrderedPNV oral tablet 1 tablet, By Mouth, Daily, 0 Refills, Maintenance, 03/22/19 14:02:42 EST Start Date: 03/22/19 Status: OrderedPrenatal Cradle See Instructions, # 1 [...] Informant Genital HSV(Confirmed)1 Active Hyperemesis gravidarum(Confirmed) Active Pelvic pain in (Confirmed) Active Paroxysmal SVT (supraventricular Active tachycardia)(Confirmed) (Confirmed)2 11/21/18 Active 1last outbreak in may 2018, take acyclovir as styupn5S/S on 12/31 at Social History Social History Type Response Smoking Status Never (less than 100 in life time); Tobacco user in household: No entered on: 01/11/19 Sex
--- OUTSIDE RECORDS SUMMARY | 2022-02-20 06:58 | XMS_ITS | Continuity of Care Document ---
:1990 Author Organization [facility] Address [address] [place] [address]- Care Team Providers Name Role Phone Ju Hatch MD Primary Care Physician Encounter [facility] Date(s): 03/27/21 - 04/26/21 [facility] [address] [place] [address]- [place] Allergies, Adverse Reactions, Alerts Substance Reaction Severity [...] 06/21/93 Given 1Result Comment: Patient tolerated well [id number] Note: MENCEVAX Medications Scarlet 30 mg oral tablet 1 tablet = 30 mg, By Mouth, Once, # 1 tablet, 0 Refills, Soft Stop, 04/20/20 16:48:00 EST, Tablet, [facility]/pharmacy #[id number], Partial fill upon patient request if the prescription is for a schedule II opioid drug., 173, cm, 04/20/20 16:15:00 EST, Height, 94.... Start Date: 04/20/20 Status: Orderedferrous sulfate 324 mg (65 mg elemental iron) oral delayed release tablet 1 tablet = 324 mg, By Mouth, Daily, # 30 tablet, 6 Refills, Maintenance, 06/14/19 14:22:00 EST, [facility]/pharmacy #[id number], 170.18, cm, 06/14/19 14:16:00 EST, Height, 80.8, kg, 06/22/18 13:32:00 EST, Dry Weight Start Date: 06/14/19 Status: Orderedindomethacin 75 mg oral capsule, extended release 1 capsule = 75 mg, By Mouth, Daily, with food or milk, # 30 capsule, 1 Refills, Maintenance, 03/30/20 18:10:00 EST, ER Capsule, [facility]/pharmacy #[id number], 173, cm, 03/09/20 15:36:00 EDT, Height, 89.9, kg, 08/18/19 18:10:00 EDT, Dry Weight Start Date: 03/30/20 Status: Orderedmetoprolol 50 mg oral tablet, extended release 50 mg, 1, tablet, By Mouth, Daily, # 30 tablet, Refills 5, Tot. Refills 5, Maintenance, 03/29/21 11:12:00 EST, Route to Pharmacy Electronically, [facility]/pharmacy #[id number], d/c propanolol, 173, cm, 04/20/20 16:15:00 EST, Height, 94.5, kg, 04/20/20 16:15:00 ES... Start Date: 03/29/21 Stop Date: 09/25/21 Status: OrderedNexplanon 68 mg subcutaneous implant 1 each = 68 mg, Subcutaneous Infusion, Once, Pharmacy Supplied and inserted by Katia MORALES on 04/20/2020 lot#[id number] exp#06/05/2022 [facility]#[id number], # 1 each, 0 Refills, Soft Stop, 03/21/20 9:10:00 EST, [facility], 173, cm, 1... Start Date: 03/21/20 Status: OrderedPrenatal Multivitamins with Vitamin B Complex, Vitamin C, Minerals and L-Methylfolate oral capsule 1 capsule, By Mouth, Daily, # 60 capsule, 3 Refills, Maintenance, 08/21/19 5:58:00 EDT, Capsule, [facility]/pharmacy #[id number], 1 capsule By Mouth [...]
--- OUTSIDE RECORDS SUMMARY | 2022-02-20 06:58 | XMS_ITS | Continuity of Care Document ---
:1990 Author Organization [facility] Address [address] [place] [address]- Care Team Providers Name Role Phone Gautam DONIS, Victor Hugo Primary Care Physician [facility] Date[facility]s): 12/29/19 - 01/28/20 [facility] [address] [place] [address]- [facility] Allergies, Adverse Reactions, Alerts Substance Reaction Severity [...] 06/21/93 Given 1Result Comment: Patient tolerated well [id number] Note: MENCEVAX Medications ferrous sulfate 324 mg (65 mg elemental iron) oral delayed release tablet 1 tablet = 324 mg, By Mouth, Daily, # 30 tablet, 6 Refills, Maintenance, 06/14/19 14:22:00 EST, [facility]/pharmacy #[id number], 170.18, cm, 06/14/19 14:16:00 EST, Height, 80.8, kg, 06/22/18 13:32:00 EST, Dry Weight Start Date: 06/14/19 Status: Orderedibuprofen 800 mg oral tablet See Instructions, TAKE 1 TABLET BY MOUTH 3 TIMES A DAY, # 90 tablet, Refills 0, Acute, Instructions Replace Required Details, Route to Pharmacy Electronically, [id number], 173, cm, 11/11/19 7:59:00 EDT, Height, 89.9, kg, 08/18/19 18:10:00 EDT, . Start Date: 01/04/20 Status: OrderedNexplanon 68 mg subcutaneous implant 1 each = 68 mg, Subcutaneous Infusion, Once, # 1 each, 0 Refills, Soft Stop, 11/18/19 15:41:00 EDT, [facility], 173, cm, 11/11/19 7:59:00 EDT, Height, 89.9, kg, 08/18/19 18:10:00 EDT, Dry Weight Start Date: 11/18/19 Status: OrderedPrenatal Multivitamins with Vitamin B Complex, Vitamin C, Minerals and L-Methylfolate oral capsule 1 capsule, By Mouth, Daily, # 60 capsule, 3 Refills, Maintenance, 08/21/19 5:58:00 EDT, Capsule, [facility]/pharmacy #[id number], 1 capsule By Mouth Daily, 173, cm, 08/21/19 0:20:00 EDT, Height, 89.9, kg, 08/18/19 18:10:00 EDT, Dry Weight Start Date: 08/21/19 Status: Orderedpropranolol 10 mg oral tablet 10 mg, 1, tablet, By Mouth, 2 times a day, # 60 tablet, Refills 2, Tot. Refills 2, Maintenance, 08/21/19 5:58:00 EDT, Route to Pharmacy Electronically, [facility]/pharmacy #[id number], 173, cm, 08/21/19 0:20:00 EDT, Height, 89.9, kg, 08/18/19 18:10:00 EDT, Dry Weight Start Date: 08/21/19 Status: OrderedvalACYclovir 500 mg oral tablet 500 mg, 1, tablet, By Mouth, Every 12 hours, for 3 days, # 12 tablet, Refills 5, Tot. Refills 5, Acute 01/31/20 16:58:00 EDT, 01/13/20 16:58:00 EDT, Route to Pharmacy Electronically, [facility]/pharmacy #[id number], 173, cm, 11/11/19 7:59:00 EDT, Height, 89.9, kg,... Start Date: 01/13/20 Stop Date: 01/31/20 Status: Ordered Problem List Condition Effective Dates [...]
--- OUTSIDE RECORDS SUMMARY | 2022-02-20 06:58 | XMS_ITS | Continuity of Care Document ---
:1990 Author Organization [facility] Address [address] [place] [address], [address] [place] [address]- Care Team Providers Name Role Phone Ju Hatch MD Primary Care Physician [place] [facility] 06/[place]21 - 07/20/21 [facility] [employer] [address] [facility], [address] [place] [address]- Attending Physician: Mervin Bland Admitting Physician: Mervin [...] 06/21/93 Given 1Result Comment: Patient tolerated well [id number] Note: MENCEVAX Medications Nexplanon 68 mg subcutaneous implant 1 each = 68 mg, Subcutaneous Infusion, Once, Pharmacy Supplied and inserted by Katia Oquendo [facility] on 04/20/2020 lot#[id number] exp#06/05/2022 [facility]#[id number], # 1 each, 0 Refills, Soft Stop, 03/21/20 9:10:00 EST, [facility], 173, cm, 1... Start Date: 03/21/20 Status: OrderedvalACYclovir 500 mg oral tablet 1, tablet, By Mouth, Every 12 hours, for 7 days, X3 DAYS., # 14 tablet, Refills 0, Tot. Refills 0, Physician Stop 07/23/21 17:12:00 EST, 07/16/21 17:12:00 EST, Route to Pharmacy Electronically, [facility]/pharmacy #[id number], 173, cm, 06/20/21 11:48:00 EST, Heigh... Start Date: 07/16/21 Stop Date: 07/23/21 Status: OrderedValtrex 500 mg oral tablet 500 mg, 1, tablet, By Mouth, Daily, for 30 days, after finishing BID dose for 1 week, # 30 tablet, Refills 0, Tot. Refills 0, Acute 08/15/21 17:13:00 EDT, 07/16/21 17:13:00 EST, Route to Pharmacy Electronically, [facility]/pharmacy #[id number], Partial fill upon p... Start Date: 07/16/21 Stop Date: 08/15/21 Status: Ordered Problem List Condition Effective Dates [...]
--- OUTSIDE RECORDS SUMMARY | 2022-02-20 06:58 | XMS_ITS | Continuity of Care Document ---
:1990 Author Organization [facility] Address [address] [place] [address]- Care Team Providers Name Role Phone Victor Hugo Florez MD Primary Care Physician [place] [facility] [place] Date(s): 08/18/19 - 08/21/[address] [address]- [facility] Discharge Disposition: A-D/C Home Attending Physician: Tracey Castelan MD Admitting Physician: Tracey Castelan MD Referring Physician: Tracey Castelan MD Allergies, Adverse Reactions, Alerts Substance Reaction [...] 06/21/93 Given 1Result Comment: Patient tolerated well [id number] Note: MENCEVAX Medications ferrous sulfate 324 mg (65 mg elemental iron) oral delayed release tablet 1 tablet = 324 mg, By Mouth, Daily, # 30 tablet, 6 Refills, Maintenance, 06/14/19 14:22:00 EST, [facility]/pharmacy #[id number], 170.18, cm, 06/14/19 14:16:00 EST, Height, 80.8, kg, 06/22/18 13:32:00 EST, Dry Weight Start Date: 06/14/19 Status: Orderedibuprofen 800 mg oral tablet 800 mg, 1, tablet, By Mouth, 3 times a day, # 90 tablet, Refills 0, Tot. Refills 0, Acute 09/21/19 0:00:00 EDT, 08/21/19 9:54:00 EDT, Route to Pharmacy Electronically, [facility]/pharmacy #[id number], 173, cm, 08/21/19 0:20:00 EDT, Height, 89.9, kg, 08/18/19 18:10... Start Date: 08/21/19 Stop Date: 09/21/19 Status: OrderedPrenatal Multivitamins with Vitamin B Complex, Vitamin C, Minerals and L-Methylfolate oral capsule 1 capsule, By Mouth, Daily, # 60 capsule, 3 Refills, Maintenance, 08/21/19 5:58:00 EDT, Capsule, [facility]/pharmacy #[id number], 1 capsule By Mouth Daily, 173, cm, 08/21/19 0:20:00 EDT, Height, 89.9, kg, 08/18/19 18:10:00 EDT, Dry Weight Start Date: 08/21/19 Status: Orderedpropranolol 10 mg oral tablet 10 mg, 1, tablet, By Mouth, 2 times a day, # 60 tablet, Refills 2, Tot. Refills 2, Maintenance, 08/21/19 5:58:00 EDT, Route to Pharmacy Electronically, [facility]/pharmacy #[id number], 173, cm, 08/21/19 0:20:00 EDT, Height, 89.9, kg, 08/18/19 18:10:00 EDT, Dry Weight Start Date: 08/21/19 Status: OrderedTylenol 325 mg oral capsule 2 capsule = 650 mg, By Mouth, Every 4 hours, PRN as needed for pain, # 20 capsule, 0 Refills, Acute 09/21/19 0:00:00 EDT, 08/21/19 9:54:00 EDT, Capsule, [facility]acy [id number], 173, cm, 08/21/19 0:20:00 EDT, Height, 89.9, kg, 08/18/19 18:10:00 EDT, Dry We... Start Date: 08/21/19 Stop Date: 09/21/19 Status: Ordered Problem List Condition Effective Dates Status Health Status Informant Genital HSV(Confirmed)1 Active Pelvic pain in (Confirmed) Active Paroxysmal SVT (supraventricular Active tachycardia)(Confirmed) 1last outbreak in may 2018, take acyclovir as needed Vital Signs Most recent to oldest 1 2 3 [Reference Range]: Height 173 cm 173 cm 173 cm (08/21/19 12:00 AM) (08/20/19 11:00 PM) (08/20/19 4:15 PM) Weight 89.9 kg 89.9 kg (08/19/19 5:10 PM) (08/18/19 6:10 PM) Oxygen Saturation [94-100 100 % 98 % 98 % %] (08/21/19 12:00 AM) (08/20/19 6:00 AM) (08/20/19 1:44 AM) Pulse Rate [55-90 bpm] 81 bpm 89 bpm 89 bpm (08/21/19 9:11 AM) (08/21/19 12:00 AM) (08/20/19 9:51 PM) Body Mass Index 30.04 [18.5-24.99] *>HHI* (08/18/19 6:10 PM) Blood Pressure 122/58 mm Hg 106/58 mm Hg 106/58 mm Hg [90-138/55-84 mm Hg] (08/21/19 9:11 AM) (08/21/19 12:00 AM) (08/20/19 9:51 PM) Respiratory Rate [16-30 18 br/min 18 br/min 20 br/mi n br/min] (08/21/19 12:00 AM) (08/20/19 4:15 PM) (08/20/19 9:00 AM) Temperature [96.8-100.4 98.4 DegF 98.5 DegF 98.2 Deg F DegF] (08/21/19 12:00 AM) (08/20/19 4:15 PM) (08/20/19 9:00 AM) Mode of Delivery (Oxygen) Room air Room air Room a ir (08/21/19 12:00 AM) (08/20/19 6:00 AM) (08/20/19 1:44 AM) Blood pressure sites Arm, right Arm, left (08/20/19 4:15 PM) (08/18/19 6:10 PM) Temperature Route Oral Oral Axillary (08/21/19 12:00 AM) (08/20/19 4:15 PM) (08/20/19 9:00 AM) Dry Weight 89.9 kg (08/18/19 6:10 PM) Weight Obtained Via Patient/family stated (08/18/19 6:10 PM) Dry Weight Obtained Via Patient/family stated (08/18/19 6:10 PM) Sensory deficits None (08/18/19 6:10 PM) Mobility assistance Independent (08/18/19 6:10 PM) Social History Social History Type Response Smoking Status Never (less than 100 in life time); Tobacco user in household: No entered on: 01/11/19 Sex
--- OUTSIDE RECORDS SUMMARY | 2022-02-20 06:58 | XMS_ITS | Continuity of Care Document ---
:1990 Author Organization [facility] [employer] [facility] p Address [address] [place] [address], [address] [place] [address]- Care Team Providers Name Role Phone Victor Hugo Florez MD Primary Care Physician [place] [facility] [place]s): 09/13/19 - [facility] [address] [facility], [address] [place] [address]- [facility] Attending Physician: Mayelin DONSI, Shelly March Allergies, Adverse Reactions, Alerts Substance Reaction Severity [...] 06/21/93 Given 1Result Comment: Patient tolerated well [id number] Note: MENCEVAX Medications ferrous sulfate 324 mg (65 mg elemental iron) oral delayed release tablet 1 tablet = 324 mg, By Mouth, Daily, # 30 tablet, 6 Refills, Maintenance, 06/14/19 14:22:00 EST, [facility]/pharmacy #[id number], 170.18, cm, 06/14/19 14:16:00 EST, Height, 80.8, kg, 06/22/18 13:32:00 EST, Dry Weight Start Date: 06/14/19 Status: OrderedNexplanon 68 mg subcutaneous implant 1 each = 68 mg, Subcutaneous Infusion, Once, # 1 each, 0 Refills, Soft Stop, 11/18/19 15:41:00 EDT, [facility], 173, cm, 11/11/19 7:59:00 EDT, Height, 89.9, kg, 08/18/19 18:10:00 EDT, Dry Weight Start Date: 11/18/19 Status: OrderedPrenatal Multivitamins with Vitamin B Complex, Vitamin C, Minerals and L-Methylfolate oral capsule 1 capsule, By Mouth, Daily, # 60 capsule, 3 Refills, Maintenance, 08/21/19 5:58:00 EDT, Capsule, [facility]/pharmacy #[id number], 1 capsule By Mouth Daily, 173, cm, 08/21/19 0:20:00 EDT, Height, 89.9, kg, 08/18/19 18:10:00 EDT, Dry Weight Start Date: 08/21/19 Status: Orderedpropranolol 10 mg oral tablet 10 mg, 1, tablet, By Mouth, 2 times a day, # 60 tablet, Refills 2, Tot. Refills 2, Maintenance, 08/21/19 5:58:00 EDT, Route to Pharmacy Electronically, [facility]/pharmacy #[id number], 173, cm, 08/21/19 0:20:00 [...]
--- OUTSIDE RECORDS SUMMARY | 2022-02-20 06:58 | XMS_ITS | Continuity of Care Document ---
:1990 Author Organization [facility] Address [address] [place] [address]- Care Team Providers Name Role Phone Victor Hugo Florez MD Primary Care Physician Encounter [facility] Date(s): 06/18/19 - 06/25/19 [facility] [address] [place] [address]- [facility] Attending Physician: Victor Hugo Florez MD Allergies, [...] 06/21/93 Given 1Result Comment: Patient tolerated well [id number] Note: MENCEVAX Medications Colace sodium 100 mg oral capsule 100 mg, 1, capsule, By Mouth, 2 times a day, PRN, # 60 capsule, Refills 3, Tot. Refills 3, Maintenance, for constipation, 03/22/19 14:04:07 EST, Route to Pharmacy Electronically, [id number], [facility]/pharmacy #[id number] Start Date: 03/22/19 Status: Orderedferrous sulfate 324 mg (65 mg elemental iron) oral delayed release tablet 1 tablet = 324 mg, By Mouth, Daily, # 30 tablet, 6 Refills, Maintenance, 06/14/19 14:22:00 EST, [facility]/pharmacy #[id number], 170.18, cm, 06/14/19 14:16:00 EST, Height, 80.8, kg, 06/22/18 13:32:00 EST, Dry Weight Start Date: 06/14/19 Status: OrderedLSO for lower back pain LSO for lower back pain, See Instructions, # 1 each, Refills 0, Tot. Refills 0, Maintenance, FAX to [facility] [phone], 06/14/19 14:38:00 EST, Phone number for [facility] ; [address] [place] [address] ; [facility] Start Date: 06/14/19 Status: Orderedmagnesium oxide 400 [...] outbreak in may 2018, take acyclovir as [id number] on 12/31 at [facility] Most recent to oldest [Reference Range]: 1 Height 170.18 cm (06/18/19 3:57 PM) Weight 87 kg (06/18/19 3:57 PM) Oxygen Saturation [94-100 %] 98 % (06/18/19 3:57 PM) Pulse Rate [55-90 bpm] 88 bpm (06/18/19 3:57 PM) Body Mass Index [18.5-24.99] 30.04 *>HHI* (06/18/19 3:57 PM) Blood Pressure [90-138/55-84 mm Hg] 120/66 mm Hg (06/18/19 3:57 PM) Social History Social History Type Response Smoking Status Never (less than 100 in life time); Tobacco user in household: No entered on: 01/11/19 Sex
--- OUTSIDE RECORDS SUMMARY | 2022-02-20 06:58 | XMS_ITS | Continuity of Care Document ---
:1990 Author Organization [facility] p Address [address] [place] [address], [address] [place] [address]- Care Team Providers Name Role Phone Gautam DONIS, Victor Hugo Primary Care Physician [place] [facility] [place](s[place] 04/27/19 - 08/25/19 [facility] [address] [place] [address], [address] [place] [address]- Attending Physician: Jacinda Guerra MD Referring Physician: [...] 06/21/93 Given 1Result Comment: Patient tolerated well [id number] Note: MENCEVAX Medications ferrous sulfate 324 mg (65 mg elemental iron) oral delayed release tablet 1 tablet = 324 mg, By Mouth, Daily, # 30 tablet, 6 Refills, Maintenance, 06/14/19 14:22:00 EST, [facility]/pharmacy #[id number], 170.18, cm, 06/14/19 14:16:00 EST, Height, 80.8, kg, 06/22/18 13:32:00 EST, Dry Weight Start Date: 06/14/19 Status: Orderedibuprofen 800 mg oral tablet 800 mg, 1, tablet, By Mouth, 3 times a day, # 90 tablet, Refills 0, Tot. Refills 0, Acute 09/21/19 0:00:00 EDT, 08/21/19 9:54:00 EDT, Route to Pharmacy Electronically, [facility]/pharmacy #[id number], 173, cm, 08/21/19 0:20:00 EDT, Height, 89.9, kg, 08/18/19 18:10... Start Date: 08/21/19 Stop Date: 09/21/19 Status: OrderedPrenatal Multivitamins with Vitamin B Complex, Vitamin C, Minerals and L-Methylfolate oral capsule 1 capsule, By Mouth, Daily, # 60 capsule, 3 Refills, Maintenance, 08/21/19 5:58:00 EDT, Capsule, [facility]/pharmacy #[id number], 1 capsule By Mouth Daily, 173, cm, 08/21/19 0:20:00 EDT, Height, 89.9, kg, 08/18/19 18:10:00 EDT, Dry Weight Start Date: 08/21/19 Status: Orderedpropranolol 10 mg oral tablet 10 mg, 1, tablet, By Mouth, 2 times a day, # 60 tablet, Refills 2, Tot. Refills 2, Maintenance, 08/21/19 5:58:00 EDT, Route to Pharmacy Electronically, [facility]/pharmacy #[id number], 173, cm, 08/21/19 0:20:00 EDT, Height, 89.9, kg, 08/18/19 18:10:00 EDT, Dry Weight Start Date: 08/21/19 Status: OrderedTylenol 325 mg oral capsule 2 capsule = 650 mg, By Mouth, Every 4 hours, PRN as needed for pain, # 20 capsule, 0 Refills, Acute 09/21/19 0:00:00 EDT, 08/21/19 9:54:00 EDT, Capsule, [facility]/pharmacy #[id number], 173, cm, 08/21/19 0:20:00 EDT, Height, [...]
--- OUTSIDE RECORDS SUMMARY | 2022-02-20 06:58 | XMS_ITS | Continuity of Care Document ---
:1990 Author Organization [facility] [employer] p Address [address] [place] [address], [address] [place] [address]- Care Team Providers Name Role Phone Gautam DONIS, Victor Hugo Primary Care Physician [place] [facility] [place] 06/21/19 [facility] [address] [place] [address], [address] [place] [phone]- Attending Physician: Jacinda Guerra MD Referring Physician: [...] 06/21/93 Given 1Result Comment: Patient tolerated well [id number] Note: MENCEVAX Medications Colace sodium 100 mg oral capsule 100 mg, 1, capsule, By Mouth, 2 times a day, PRN, # 60 capsule, Refills 3, Tot. Refills 3, Maintenance, for constipation, 03/22/19 14:04:07 EST, Route to Pharmacy Electronically, [id number], [facility]/pharmacy #[id number] Start Date: 03/22/19 Status: Orderedferrous sulfate 324 mg (65 mg elemental iron) oral delayed release tablet 1 tablet = 324 mg, By Mouth, Daily, # 30 tablet, 6 Refills, Maintenance, 06/14/19 14:22:00 EST, [facility]/pharmacy #[id number], 170.18, cm, 06/14/19 14:16:00 EST, Height, 80.8, kg, 06/22/18 13:32:00 EST, Dry Weight Start Date: 06/14/19 Status: OrderedLSO for lower back pain LSO for lower back pain, See Instructions, # 1 each, Refills 0, Tot. Refills 0, Maintenance, FAX to [facility] [phone], 06/14/19 14:38:00 EST, Phone number for [facility] ; [address] [place] [address] ; [facility] Start Date: 06/14/19 Status: Orderedmagnesium oxide 400 [...] outbreak in may 2018, take acyclovir as [id number]/S on 12/31 at [facility] Most recent to oldest [Reference Range]: 1 Height 170.18 cm (06/14/19 2:16 PM) Weight 88.1 kg (06/14/19 2:16 PM) Body Mass Index [18.5-24.99] 30.42 *>HHI* (06/14/19 2:16 PM) Blood Pressure [90-138/55-84 mm Hg] 97/56 mm Hg (06/14/19 2:16 PM) Blood pressure sites Arm, right (06/14/19 2:16 PM) Weight Obtained Via Standing scale (06/14/19 2:16 PM) Social History Social History Type Response Smoking Status Never (less than 100 in life time); Tobacco user in household: No entered on: 01/11/19 Sex
--- OUTSIDE RECORDS SUMMARY | 2022-02-20 06:58 | XMS_ITS | Continuity of Care Document ---
:1990 Author Organization [facility] [email or web address] [facility] p Address [address] [place] [address], [address] [place] [address]- Care Team Providers Name Role Phone Victor Hugo Florez MD Primary Care Physician Encounter [facility] Date(s): 02/22/19 - [facility] [address] [place] [address], [address] [place] [address]- Attending Physician: Jacinda Guerra MD Referring Physician: Katia Oquendo CNM Allergies, Adverse Reactions, Alerts Substance Reaction Severity Status Zofran Active Immunizations Given and Recorded Vaccine Date Status Refusal Reason influenza virus vaccine, inactivated 02/22/19 Given influenza virus vaccine, inactivated 01/30/11 Given influenza virus vaccine, inactivated 07/11/10 Given Human Papillomavirus Vaccine 01/30/11 Given Human Papillomavirus Vaccine 07/11/10 Given hepatitis B adult vaccine 07/11/10 Given tetanus/diphtheria/pertussis, acel(Tdap) 07/11/10 Given Hepatitis B Vaccine (old term) 06/07/09 Given Hepatitis B Vaccine (old term) 05/09/09 Given Measles/Mumps/Rubella Virus Vaccine 06/07/09 Given Measles/Mumps/Rubella Virus Vaccine 05/09/09 Given Meningococcal Conjugate Vaccine1 05/09/09 Given Hepatitis A Pediatric Vaccine 05/09/09 [...] 92 Given Measles Virus Vaccine 06/21/93 Given 1Admin Note: MENCEVAX Medications Colace sodium 100 mg oral capsule 100 mg, 1, capsule, By Mouth, 2 times a day, PRN, # 60 capsule, Refills 3, Tot. Refills 3, Maintenance, for constipation, 03/22/19 14:04:07 EST, Route to Pharmacy Electronically, [id number], [facility]/pharmacy #[id number] Start Date: 03/22/19 Status: Orderedmagnesium oxide [...] 03/22/19 14:02:42 EST Start Date: 03/22/19 Status: OrderedpredniSONE 10 mg oral tablet See Instructions, 4 tablet By Mouth Daily for 1 day , then 3 tab/day for 2 day, then 2tabs/day x2day, then 1 tab/day x 2 days, # 16 tablet, 0 Refills, Acute 05/24/19 13:19:00 EST, 05/10/19 13:17:00 EST, Tablet, [facility]/pharmacy #[id number], 170.18, cm, 05/10/19... Start Date: 05/10/19 Stop Date: 05/24/19 Status: Ordered Problem List Condition Effective Dates Status Health Status Informant Genital HSV(Confirmed)1 Active Hyperemesis gravidarum(Confirmed) Active Paroxysmal SVT (supraventricular Active tachycardia)(Confirmed) 1last outbreak in may 2018, take acyclovir as needed Social History Social History Type Response Smoking Status Never (less than 100 in life time); Tobacco user in household: No entered on: 01/11/19 Sex
--- OUTSIDE RECORDS SUMMARY | 2022-02-20 06:58 | XMS_ITS | Continuity of Care Document ---
:1990 Author Organization [facility] Address [address] [place] [address]- Care Team Providers Name Role Phone Mamie DONIS, Ju Johnson Primary Care Physician Encounter [facility] Date(s): 11/08/21 - 12/08/21 [facility] [address] [place] [address]- Allergies, Adverse Reactions, Alerts Substance Reaction Severity Status Zofran heart palpitations Active Immunizations Given and Recorded Vaccine Date Status Refusal Reason Varicella Virus Vaccine 10/01/21 Recorded Varicella Virus Vaccine 08/31/21 Recorded Varicella Virus Vaccine 05/09/09 Given SARS-CoV-2 mRNA ([id number]) vax 08/28/21 Recorde d SARS-CoV-2 (COVID-19) mRNA [...] 06/21/93 Given 1Result Comment: Patient tolerated well [id number] Note: MENCEVAX Medications Plan B One-Step 1.5 mg oral tablet 1.5 mg, 1, tablet, By Mouth, Once, # 1 tablet, Refills 0, Tot. Refills 0, Soft Stop, 11/14/21 15:26:00 EDT, Route to Pharmacy Electronically, [facility]/pharmacy #[id number], Partial fill upon patient request if the [...]
--- OUTSIDE RECORDS SUMMARY | 2022-02-20 06:58 | XMS_ITS | Continuity of Care Document ---
:1990 Author Organization [facility] Address [address] [place] [address]- Care Team Providers Name Role Phone Ju Hatch MD Primary Care Physician Encounter [facility] Date(s): 09/11/21 - 09/12/[address] [address] Discharge Disposition: A-D/C Home Attending Physician: Ankit Solis MD Admitting Physician: Ankit Solis MD Referring Physician: Ankit Solis MD Allergies, Adverse Reactions, Alerts Substance Reaction [...] 06/21/93 Given 1Result Comment: Patient tolerated well [id number] Note: MENCEVAX Medications aspirin 325 mg oral delayed release tablet 325 mg, 1, tablet, By Mouth, Daily, Take one tablet daily for 30 days after ablation then discontinue, # 30 tablet, Refills 0, Tot. Refills 0, Maintenance, 09/12/21 10:12:00 EDT, Route to Pharmacy Electronically, [facility]/pharmacy #[id number], Partial fill upon... Start Date: 09/12/21 Stop Date: 10/12/21 Status: OrderedNexplanon 68 mg subcutaneous implant 1 each = 68 mg, Subcutaneous Infusion, Once, Pharmacy Supplied and inserted by Katia MORALES on 04/20/2020 lot#[id number] exp#06/05/2022 [facility]#[id number], # 1 each, 0 Refills, Soft Stop, 03/21/20 9:10:00 EST, [facility], 173, cm, 1... Start Date: 03/21/20 Status: Ordered Problem List Condition Effective Dates Status Health Status Informant Anterior vaginal wall Active prolapse(Confirmed) Diastasis recti(Confirmed) Active Genital HSV(Confirmed)1 Active Paroxysmal SVT (supraventricular Active tachycardia)(Confirmed) 1last outbreak in may 2018, take acyclovir as needed Vital Signs Most recent to oldest 1 2 3 [Reference Range]: Height 170 cm 170 cm 170 cm (09/12/21 9:19 AM) (09/11/21 8:20 PM) (09/11/21 3:4 1 PM) Weight 77.3 kg 77.3 kg (09/11/21 8:49 AM) (09/11/21 8:47 AM) Oxygen Saturation [94-100 %] 98 % 99 % 99 % (09/12/21 9:19 AM) (09/11/21 8:20 PM) (09/11/21 3:4 1 PM) Pulse Rate [55-90 bpm] 79 bpm 89 bpm 84 bpm (09/12/21 9:19 AM) (09/11/21 8:20 PM) (09/11/21 3:4 1 PM) Blood Pressure [90-138/55-84 mm 123/81 mm Hg 109/53 mm Hg 139/69 mm Hg Hg] (09/12/21 9:19 AM) (09/11/21 8:20 PM) *H* (09/11/21 3:41 PM ) Respiratory Rate [16-30 br/min] 19 br/min 19 br/min 18 br/min (09/12/21 9:19 AM) (09/11/21 8:20 PM) (09/11/21 3:4 1 PM) Temperature [96.8-100.4 DegF] 97.9 DegF 97.9 DegF 98 .4 DegF (09/12/21 9:19 AM) (09/11/21 8:20 PM) (09/11/21 3:4 1 PM) Mode of Delivery (Oxygen) Room air Room air Room a ir (09/12/21 9:19 AM) (09/11/21 8:20 PM) (09/11/21 3:4 1 PM) Blood pressure sites Arm, right Arm, right (09/12/21 9:19 AM) (09/11/21 8:20 PM) Temperature Route Oral Oral Oral (09/12/21 9:19 AM) (09/11/21 8:20 PM) (09/11/21 3:4 1 PM) Dry Weight 77.3 kg (09/11/21 8:49 AM) Social History Social History Type Response Smoking Status Never (less than 100 in life time); Tobacco user in household: No entered on: 01/11/19 Sex
--- OUTSIDE RECORDS SUMMARY | 2022-02-20 06:58 | XMS_ITS | Continuity of Care Document ---
:1990 Author Organization [facility] p Address [address] [place] [address], [address] [place] [address]- Care Team Providers Name Role Phone Victor Hugo Florez MD Primary Care Physician Encounter [facility] [place] Date(s): 04/20/20 - 04/27/20 [facility] [address] [facility], [address] [place] [address]- Attending Physician: Sravanthi Srivastava MD Referring Physician: Victor Hugo Florez MD [...] 06/21/93 Given 1Result Comment: Patient tolerated well [id number] Note: MENCEVAX Medications Scarlet 30 mg oral tablet 1 tablet = 30 mg, By Mouth, Once, # 1 tablet, 0 Refills, Soft Stop, 04/20/20 16:48:00 EST, Tablet, [facility]/pharmacy #[id number], Partial fill upon patient request [...] Refills, Maintenance, 03/30/20 18:10:00 EST, ER Capsule, [facility]/pharmacy #[id number], 173, cm, 03/09/20 15:36:00 EDT, Height, 89.9, kg, 08/18/19 18:10:00 EDT, Dry Weight Start Date: 03/30/20 Status: OrderedNexplanon 68 mg subcutaneous implant 1 each = 68 mg, Subcutaneous Infusion, Once, Pharmacy Supplied and inserted by Katia Oquendo [facility] on 04/20/2020 lot#[id number] exp#06/05/2022 [facility]#[id number], # 1 each, 0 Refills, Soft Stop, 03/21/20 9:10:00 EST, [facility], 173, cm, 1... Start [...] 08/21/19 5:58:00 EDT, Route to Pharmacy Electronically, [facility]/pharmacy #[id number], 173, cm, 08/21/19 0:20:00 EDT, [...] oldest [Reference Range]: 1 Height 173 cm (04/20/20 4:15 PM) Weight 94.5 kg (04/20/20 4:15 PM) Body Mass Index [18.5-24.99] 31.57 *>HHI* (04/20/20 4:15 PM) Blood Pressure [90-138/55-84 mm Hg] 125/70 mm Hg (04/20/20 4:15 PM) Blood pressure sites Arm, right (04/20/20 4:15 PM) Dry Weight 94.5 kg (04/20/20 4:15 PM) Weight Obtained Via Standing scale (04/20/20 4:15 PM) Dry Weight Obtained Via Standing scale (04/20/20 4:15 PM) Social History Social History Type Response Smoking Status Never (less than 100 in life time); Tobacco user in household: No entered on: 01/11/19 Sex
--- OUTSIDE RECORDS SUMMARY | 2022-02-20 06:58 | XMS_ITS | Continuity of Care Document ---
:1990 Author Organization [facility] [employer] p Address [address] [place] [address], [address] [place] [address]- Care Team Providers Name Role Phone Gautam DONIS, Victor Hugo Primary Care Physician En[place] [facility] [place] Date(s): 05/25/19 - 09/22/19 [facility] [address] [facility], [address] [place] [address]- [facility] Attending Physician: Jacinda Guerra MD Referring Physician: [...] Vaccine, Inactivated 92 Given diphtheria-tetanus toxoids (DT) 2/23/07 Given diphtheria-tetanus toxoids (DT) 06/24/94 Given diphtheria-tetanus toxoids (DT) 02/01/93 Given diphtheria-tetanus toxoids (DT) 92 Given diphtheria-tetanus toxoids (DT) 92 Given Measles Virus Vaccine 06/21/93 Given 1Result Comment: Patient tolerated well [id number] Note: MENCEVAX Medications ferrous sulfate 324 mg (65 mg elemental iron) oral delayed release tablet 1 tablet = 324 mg, By Mouth, Daily, # 30 tablet, 6 Refills, Maintenance, 06/14/19 14:22:00 EST, [facility]/pharmacy #[id number], 170.18, cm, 06/14/19 14:16:00 EST, Height, 80.8, kg, 06/22/18 13:32:00 EST, Dry Weight Start Date: 06/14/19 Status: OrderedPrenatal Multivitamins with Vitamin B Complex, Vitamin C, Minerals and L-Methylfolate oral capsule 1 capsule, By Mouth, Daily, # 60 capsule, 3 Refills, Maintenance, 08/21/19 5:58:00 EDT, Capsule, [facility]/pharmacy #[id number], 1 capsule By Mouth Daily, 173, cm, 08/21/19 0:20:00 EDT, Height, 89.9, kg, 08/18/19 18:10:00 EDT, Dry Weight Start Date: 08/21/19 Status: Orderedpropranolol 10 mg oral tablet 10 mg, 1, tablet, By Mouth, 2 times a day, # 60 tablet, Refills 2, Tot. Refills 2, Maintenance, 08/21/19 5:58:00 EDT, Route to Pharmacy Electronically, [facility]/pharmacy #[id number], 173, cm, 08/21/19 0:20:00 [...]
--- OUTSIDE RECORDS SUMMARY | 2022-02-20 06:58 | XMS_ITS | Continuity of Care Document ---
:1990 Author Organization [facility] Address [address] [place] [address]- Care Team Providers Name Role Phone Victor Hugo Florez MD Primary Care Physician [facility] Date[facility] 04[facility]21/19 - 05/01/19 [facility] [address] [place] [address]- [facility] Attending Physician: Mervin Bland Admitting Physician: Mervin [...] 03/22/19 14:04:07 EST, Route to Pharmacy Electronically, [id number], [facility]/pharmacy #[id number] Start Date: 03/22/19 Status: Orderedmagnesium [...]
--- OUTSIDE RECORDS SUMMARY | 2022-02-20 06:58 | XMS_ITS | Continuity of Care Document ---
:1990 Author Organization [facility] Address [address] [place] [address]- Care Team Providers Name Role Phone Victor Hugo Florez MD Primary Care Physician [facility] Date(s): 05/16/20 - 06/15/20 [facility] [address] [place], [place] [address] Allergies, Adverse Reactions, Alerts Substance Reaction Severity [...] 06/21/93 Given 1Result Comment: Patient tolerated well [id number] Note: MENCEVAX Medications Scarlet 30 mg oral tablet 1 tablet = 30 mg, By Mouth, Once, # 1 tablet, 0 Refills, Soft Stop, 04/20/20 16:48:00 EST, Tablet, [facility]/pharmacy #[id number], Partial fill upon patient request if the prescription is for a schedule II opioid drug., 173, cm, 04/20/20 16:15:00 EST, Height, 94.... Start Date: 04/20/20 Status: Orderedferrous sulfate 324 mg (65 mg elemental iron) oral delayed release tablet 1 tablet = 324 mg, By Mouth, Daily, # 30 tablet, 6 Refills, Maintenance, 06/14/19 14:22:00 EST, [facility]/pharmacy #[id number], 170.18, cm, 06/14/19 14:16:00 EST, Height, 80.8, kg, 06/22/18 13:32:00 EST, Dry Weight Start Date: 06/14/19 Status: Orderedindomethacin 75 mg oral capsule, extended release 1 capsule = 75 mg, By Mouth, Daily, with food or milk, # 30 capsule, 1 Refills, Maintenance, 03/30/20 18:10:00 EST, ER Capsule, [facility]/pharmacy #[id number], 173, cm, 03/09/20 15:36:00 EDT, Height, 89.9, kg, 08/18/19 18:10:00 EDT, Dry Weight Start Date: 03/30/20 Status: OrderedNexplanon 68 mg subcutaneous implant 1 each = 68 mg, Subcutaneous Infusion, Once, Pharmacy Supplied and inserted by Katia Oquendo [facility] on 04/20/2020 lot#[id number] exp#06/05/2022 [facility]#[id number], # 1 each, 0 Refills, Soft Stop, 03/21/20 9:10:00 EST, [facility], 173, cm, 1... Start Date: 03/21/20 Status: OrderedPrenatal Multivitamins with Vitamin B Complex, Vitamin C, Minerals and L-Methylfolate oral capsule 1 capsule, By Mouth, Daily, # 60 capsule, 3 Refills, Maintenance, 08/21/19 5:58:00 EDT, Capsule, [facility]/pharmacy #[id number], 1 capsule By Mouth Daily, 173, cm, 08/21/19 0:20:00 EDT, Height, 89.9, kg, 08/18/19 18:10:00 EDT, Dry Weight Start Date: 08/21/19 Status: Orderedpropranolol 10 mg oral tablet 10 mg, 1, tablet, By Mouth, 2 times a day, # 60 tablet, Refills 2, Tot. Refills 2, Maintenance, 08/21/19 5:58:00 EDT, Route to Pharmacy Electronically, [facility]/pharmacy #[id number], 173, cm, 08/21/19 0:20:00 [...]
--- OUTSIDE RECORDS SUMMARY | 2022-02-20 06:58 | XMS_ITS | Continuity of Care Document ---
:1990 Author Organization [facility] Address [address] [place] [address], [address] [place] [address]- Care Team Providers Name Role Phone Victor Hugo Florez MD Primary Care Physician [place] [facility] [place]s): 11/18/19 - 11/25/19 [facility] [address] [facility], [address] [place] [address]- [facility] Attending Physician: Not on Staff, Attending MD Referring Physician: Victor Hugo Florez MD [...] 06/21/93 Given 1Result Comment: Patient tolerated well [id number] Note: MENCEVAX Medications ferrous sulfate 324 mg [...] 0 Refills, Soft Stop, 11/18/19 15:41:00 EDT, [facility], 173, cm, 11/11/19 7:59:00 [...]
--- OUTSIDE RECORDS SUMMARY | 2022-02-20 06:58 | XMS_ITS | Continuity of Care Document ---
:1990 Author Organization [facility] Address [address] [place] [address]- Care Team Providers Name Role Phone Victor Hugo Folrez MD Primary Care Physician [facility] Date(s): 03/30/20 - 04/29/20 [facility] [address] [place], [place] [address] Allergies, Adverse Reactions, Alerts Substance Reaction [...] 06/21/93 Given 1Result Comment: Patient tolerated well [id number] Note: MENCEVAX Medications Scarlet 30 mg oral tablet 1 tablet = 30 mg, By Mouth, Once, # 1 tablet, 0 Refills, Soft Stop, 04/20/20 16:48:00 EST, Tablet, [facility]/pharmacy #[id number], Partial fill upon patient request if the prescription is for a schedule II opioid drug., 173, cm, 04/20/20 16:15:00 EST, Height, 94.... Start Date: 04/20/20 Status: Orderedferrous sulfate 324 mg (65 mg elemental iron) oral delayed release tablet 1 tablet = 324 mg, By Mouth, Daily, # 30 tablet, 6 Refills, Maintenance, 06/14/19 14:22:00 EST, [facility]/pharmacy #[id number], 170.18, cm, 06/14/19 14:16:00 EST, Height, 80.8, kg, 06/22/18 13:32:00 EST, Dry Weight Start Date: 06/14/19 Status: Orderedindomethacin 75 mg oral capsule, extended release 1 capsule = 75 mg, By Mouth, Daily, with food or milk, # 30 capsule, 1 Refills, Maintenance, 03/30/20 18:10:00 EST, ER Capsule, [facility]/pharmacy #[id number], 173, cm, 03/09/20 15:36:00 EDT, Height, 89.9, kg, 08/18/19 18:10:00 EDT, Dry Weight Start Date: 03/30/20 Status: OrderedNexplanon 68 mg subcutaneous implant 1 each = 68 mg, Subcutaneous Infusion, Once, Pharmacy Supplied and inserted by Katia Oquendo [facility] on 04/20/2020 lot#[id number] exp#06/05/2022 [facility]#[id number], # 1 each, 0 Refills, Soft Stop, 03/21/20 9:10:00 EST, [facility], 173, cm, 1... Start Date: 03/21/20 Status: OrderedPrenatal Multivitamins with Vitamin B Complex, Vitamin C, Minerals and L-Methylfolate oral capsule 1 capsule, By Mouth, Daily, # 60 capsule, 3 Refills, Maintenance, 08/21/19 5:58:00 EDT, Capsule, [facility]/pharmacy #[id number], 1 capsule By Mouth Daily, 173, cm, 08/21/19 0:20:00 EDT, Height, 89.9, kg, 08/18/19 18:10:00 EDT, Dry Weight Start Date: 08/21/19 Status: Orderedpropranolol 10 mg oral tablet 10 mg, 1, tablet, By Mouth, 2 times a day, # 60 tablet, Refills 2, Tot. Refills 2, Maintenance, 08/21/19 5:58:00 EDT, Route to Pharmacy Electronically, [facility]/pharmacy #[id number], 173, cm, 08/21/19 0:20:00 EDT, [...]
--- OUTSIDE RECORDS SUMMARY | 2022-02-20 06:58 | XMS_ITS | Continuity of Care Document ---
:1990 Author Organization [facility] Address [address] [place] [address]- Care Team Providers Name Role Phone Victor Hugo Florez MD Primary Care Physician [facility] [facility] [place](s): 04/05/20 - 05/05/20 [facility] [address] [place], [place] [address] Attending Physician: Mervin Bland Admitting Physician: Mervin [...] 06/21/93 Given 1Result Comment: Patient tolerated well [id number] Note: MENCEVAX Medications Scarlet 30 mg oral tablet 1 tablet = 30 mg, By Mouth, Once, # 1 tablet, 0 Refills, Soft Stop, 04/20/20 16:48:00 EST, Tablet, [facility]/pharmacy #[id number], Partial fill upon patient request [...] Maintenance, 03/30/20 18:10:00 EST, ER Capsule, [facility]/pharmacy #[id number], 173, cm, 03/09/20 15:36:00 EDT, Height, 89.9, kg, 08/18/19 18:10:00 EDT, Dry Weight Start Date: 03/30/20 Status: OrderedNexplanon 68 mg subcutaneous implant 1 each = 68 mg, Subcutaneous Infusion, Once, Pharmacy Supplied and inserted by Katia Oquendo CNM on 04/20/2020 lot#[id number] exp#06/05/2022 [facility]#[id number], # 1 each, 0 Refills, Soft Stop, 03/21/20 9:10:00 EST, [facility], 173, cm, 1... [...] 08/21/19 5:58:00 EDT, Route to Pharmacy Electronically, [facility]/pharmacy #[id number], 173, cm, 08/21/19 0:20:00 [...]
--- OUTSIDE RECORDS SUMMARY | 2022-02-20 06:58 | XMS_ITS | Continuity of Care Document ---
:1990 Author Organization [facility] Address [address] [place] [address]- Care Team Providers Name Role Phone Victor Hugo Florez MD Primary Care Physician [facility] Date[facility]s): 07/09/19 - 07/19/19 [facility] [address] [place] [address]- [facility] Attending Physician: Mervin Bland Admitting Physician: [...] 06/21/93 Given 1Result Comment: Patient tolerated well [id number] Note: MENCEVAX Medications ferrous sulfate 324 mg [...] Maintenance, FAX to [facility] [phone], 06/14/19 14:38:00 EST, Phone number for [facility] ; [address] [place] [address] ; [facility] Start Date: 06/14/19 Status: OrderedPrenatal Cradle See [...] outbreak in may 2018, take acyclovir as pvslyc0M/S on 12/31 at Social History Social History Type Response Smoking Status Never (less than 100 in life time); Tobacco user in household: No entered on: 01/11/19 Sex
--- OUTSIDE RECORDS SUMMARY | 2022-02-20 06:58 | XMS_ITS | Continuity of Care Document ---
:1990 Author Organization [facility] Address [address] [place] [address], [address] [place] [address]- Care Team Providers Name Role Phone Ju Hatch MD Primary Care Physician Encounter [facility] Date(s): 01/14/22 - 02/13/22 [facility] [address] [place] [address], [address] [place] [address] Attending Physician: Admtr, Mervin Admitting Physician: Admtr, Mervin Referring Physician: Admtr, Ar8 Allergies, Adverse Reactions, Alerts Substance Reaction Severity Status Zofran heart palpitations Active Immunizations Given and Recorded Vaccine Date Status Refusal Reason Varicella Virus Vaccine 10/01/21 Recorded Varicella Virus Vaccine 08/31/21 Recorded Varicella Virus Vaccine 05/09/09 Given SARS-CoV-2 mRNA (uavepgj-ubct-aupwn) vax 08/28/21 Recorde d SARS-CoV-2 (COVID-19) mRNA [...] 06/21/93 Given 1Result Comment: Patient tolerated well [id number] Note: MENCEVAX Medications Plan B One-Step 1.5 mg oral tablet 1.5 mg, 1, tablet, By Mouth, Once, # 1 tablet, Refills 0, Tot. Refills 0, Soft Stop, 11/14/21 15:26:00 EDT, Route to Pharmacy Electronically, [facility]/pharmacy #[id number], Partial fill upon patient request if the prescription is for a schedule II opioid drug.,... Start Date: 11/14/21 Status: OrderedvalACYclovir 500 mg oral tablet 1, tablet, By Mouth, Daily, # 30 tablet, Refills 0, Maintenance, 01/28/22 10:22:00 EDT, Route to Pharmacy Electronically, [facility] [id number], 170, cm, 11/22/21 11:47:00 EDT, Height, 78.2, kg, 11/14/21 16:02:00 EDT, Dry Weight Start Date: 01/28/22 Status: OrderedXulane 150 mcg-35 mcg/24 hr transdermal film, extended release 1 patch, Topically, Every week, apply a new patch weekly for 3 weeks, remove for 1 week, then repeatcycle, # 9 each, 4 Refills, Maintenance, 12/19/21 16:13:00 EDT, [facility]/pharmacy #[id number], Partial fill upon patient request if the prescription is for a aleja... Start Date: 12/19/21 Status: Ordered Problem List Condition Confirmation Course Effective Dates Status Health Stat us Informant Anterior vaginal Confirmed Active wall prolapse Diastasis recti Confirmed Active Genital HSV1 Confirmed Active Paroxysmal SVT Confirmed Active (supraventricular tachycardia) 1last outbreak in may 2018, take acyclovir as needed Social History Social History Type Response Smoking Status Never (less than 100 in life time); Tobacco user in household: No entered on: 01/11/19 Sex Patient Care team information PersonnelName: Mamie DONIS, Ju Johnson Address: Address: [address] [place] [address] Adult & Pediatric [place], [place] [address]
--- OUTSIDE RECORDS SUMMARY | 2022-02-20 06:58 | XMS_ITS | Continuity of Care Document ---
:1990 Author Organization [facility] Address [address] [place] [address]- Care Team Providers Name Role Phone Victor Hugo Florez MD Primary Care Physician [facility] Date(s): 07/09/19 - 07/16/19 [facility] [address] [place] [address]- [facility] Attending Physician: Victor Hugo Florez MD Allergies, [...] 06/21/93 Given 1Result Comment: Patient tolerated well [id number] Note: MENCEVAX Medications ferrous sulfate 324 mg [...] Maintenance, FAX to [facility] [phone], 06/14/19 14:38:00 EST, Phone number for [facility] ; [address] [place] [address] ; [facility]... Start Date: 06/14/19 Status: OrderedPrenatal Cradle See [...] outbreak in may 2018, take acyclovir as mrrahs0U/S on 12/31 at [facility] Most recent to oldest [Reference Range]: 1 Height 170.18 cm (07/09/19 11:50 AM) Weight 87.8 kg (07/09/19 11:50 AM) Oxygen Saturation [94-100 %] 98 % (07/09/19 11:50 AM) Pulse Rate [55-90 bpm] 99 bpm *H* (07/09/19 11:50 AM) Body Mass Index [18.5-24.99] 30.32 *>HHI* (07/09/19 11:50 AM) Blood Pressure [90-138/55-84 mm Hg] 120/64 mm Hg (07/09/19 11:50 AM) Social History Social History Type Response Smoking Status Never (less than 100 in life time); Tobacco user in household: No entered on: 01/11/19 Sex
--- OUTSIDE RECORDS SUMMARY | 2022-02-20 06:59 | XMS_ITS | Continuity of Care Document ---
:1990 Author Organization [facility] Address [address] [place] [address], [address] [place] [address]- Care Team Providers Name Role Phone Victor Hugo Florez MD Primary Care Physician [place] [facility] [place](s): 05/21/19 - 05/28/19 [facility] [employer] [facility] [address] [place] [address], [address] [place] [address]- Attending Physician: Leroy DONIS, Km Phillips Referring Physician: Jacinda Guerra MD Allergies, Adverse [...] 03/22/19 14:04:07 EST, Route to Pharmacy Electronically, [id number], [id number] Start Date: 03/22/19 Status: Orderedmagnesium [...] outbreak in may 2018, take acyclovir as ijlhow6K/S on 12/31 at [facility] Most recent to oldest [Reference Range]: 1 Height 170.18 cm (05/21/19 9:12 AM) Weight 85.0 kg (05/21/19 9:12 AM) Body Mass Index [18.5-24.99] 29.35 *H* (05/21/19 9:12 AM) Blood Pressure [90-138/55-84 mm Hg] 102/62 mm Hg (05/21/19 9:12 AM) Blood pressure sites Arm, right (05/21/19 9:12 AM) Weight Obtained Via Standing scale (05/21/19 9:12 AM) Social History Social History Type Response Smoking Status Never (less than 100 in life time); Tobacco user in household: No entered on: 01/11/19 Sex
--- OUTSIDE RECORDS SUMMARY | 2022-02-20 06:59 | XMS_ITS | Continuity of Care Document ---
:1992 Author Organization [facility] Address [address] [place] [address]- Care Team Providers Name Role Phone Victor Hugo Florez MD Primary Care Physician [place] [facility] [place] 10[place]06/19 - 11/05/19 [facility] [address] [address]- [place] Attending Physician: Mervin Bland Admitting Physician: AdmMervin dangelo Referring Physician: Admtr, Ar8 Allergies, Adverse Reactions, [...] 06/21/93 Given 1Result Comment: Patient tolerated well [id number] Note: MENCEVAX Medications ferrous sulfate 324 mg (65 mg elemental iron) oral delayed release tablet 1 tablet = 324 mg, By Mouth, Daily, # 30 tablet, 6 Refills, Maintenance, 06/14/19 14:22:00 EST, [facility]/pharmacy #[id number], 170.18, cm, 06/14/19 14:16:00 EST, Height, 80.8, kg, 06/22/18 13:32:00 EST, Dry Weight Start Date: 06/14/19 Status: OrderedPrenatal Multivitamins with Vitamin B Complex, Vitamin C, Minerals and L-Methylfolate oral capsule 1 capsule, By Mouth, Daily, # 60 capsule, 3 Refills, Maintenance, 08/21/19 5:58:00 EDT, Capsule, [facility]/pharmacy #[id number], 1 capsule By Mouth Daily, 173, cm, 08/21/19 0:20:00 EDT, Height, 89.9, kg, 08/18/19 18:10:00 EDT, Dry Weight Start Date: 08/21/19 Status: Orderedpropranolol 10 mg oral tablet 10 mg, 1, tablet, By Mouth, 2 times a day, # 60 tablet, Refills 2, Tot. Refills 2, Maintenance, 08/21/19 5:58:00 EDT, Route to Pharmacy Electronically, [facility]/pharmacy #[id number], 173, cm, 08/21/19 0:20:00 [...]
--- OUTSIDE RECORDS SUMMARY | 2022-02-20 06:59 | XMS_ITS | Continuity of Care Document ---
:1990 Author Organization [facility] [employer] [facility] Address [address] [place] [address], [address] [place] [address]- Care Team Providers Name Role Phone Ju Hatch MD Primary Care Physician Encounter [facility] Date(s): 11/08/21 - 12/08/21 [facility] [facility] [address] [place] [address], [address] [place] [id number] Allergies, Adverse Reactions, Alerts Substance Reaction Severity Status Zofran heart palpitations Active Immunizations Given and Recorded Vaccine Date Status Refusal Reason Varicella Virus Vaccine 10/01/21 Recorded Varicella Virus Vaccine 08/31/21 Recorded Varicella Virus Vaccine 05/09/09 Given SARS-CoV-2 mRNA (jqmbctq-tbsf-yldab) vax 08/28/21 Recorde d SARS-CoV-2 (COVID-19) mRNA [...] 06/21/93 Given 1Result Comment: Patient tolerated well [id number] Note: MENCEVAX Medications Plan B One-Step 1.5 mg oral tablet 1.5 mg, 1, tablet, By Mouth, Once, # 1 tablet, Refills 0, Tot. Refills 0, Soft Stop, 11/14/21 15:26:00 EDT, Route to Pharmacy Electronically, [facility]/pharmacy #[id number], Partial fill upon patient request if the [...]
--- OUTSIDE RECORDS SUMMARY | 2022-02-20 06:59 | XMS_ITS | Continuity of Care Document ---
:1990 Author Organization [facility] Address [address] [place] [address]- Care Team Providers Name Role Phone Ju Hatch MD Primary Care Physician [facility] Date(s): 10/18/20 - 11/17/20 [facility] [address] [address]- Attending Physician: Mervin Bland Admitting Physician: AdmtrMervin Referring Physician: Admtr, Ar8 Allergies, Adverse Reactions, [...] 06/21/93 Given 1Result Comment: Patient tolerated well [id number] Note: MENCEVAX Medications Scarlet 30 mg oral tablet 1 tablet = 30 mg, By Mouth, Once, # 1 tablet, 0 Refills, Soft Stop, 04/20/20 16:48:00 EST, Tablet, [facility]/pharmacy #[id number], Partial fill upon patient request [...] Refills, Maintenance, 03/30/20 18:10:00 EST, ER Capsule, [facility]/pharmacy #[id number], 173, cm, 03/09/20 15:36:00 EDT, Height, 89.9, kg, 08/18/19 18:10:00 EDT, Dry Weight Start Date: 03/30/20 Status: OrderedNexplanon 68 mg subcutaneous implant 1 each = 68 mg, Subcutaneous Infusion, Once, Pharmacy Supplied and inserted by Katia Oquendo [facility] on 04/20/2020 lot#[id number] exp#06/05/2022 [facility]#[id number], # 1 each, 0 Refills, Soft Stop, 03/21/20 9:10:00 EST, [facility], 173, cm, 1... Start Date: 03/21/20 Status: OrderedPrenatal Multivitamins with Vitamin B Complex, Vitamin C, Minerals and L-Methylfolate oral capsule 1 capsule, By Mouth, Daily, # 60 capsule, 3 Refills, Maintenance, 08/21/19 5:58:00 EDT, Capsule, [facility]/pharmacy #[id number], 1 capsule By Mouth Daily, 173, cm, 08/21/19 0:20:00 EDT, Height, 89.9, kg, 08/18/19 18:10:00 EDT, Dry Weight Start Date: 08/21/19 Status: Orderedpropranolol 10 mg oral tablet 10 mg, 1, tablet, By Mouth, 2 times a day, # 60 tablet, Refills 2, Tot. Refills 2, Maintenance, 08/21/19 5:58:00 EDT, Route to Pharmacy Electronically, [facility]/pharmacy #[id number], 173, cm, 08/21/19 0:20:00 EDT, [...]
--- OUTSIDE RECORDS SUMMARY | 2022-02-20 06:59 | XMS_ITS | Continuity of Care Document ---
:1990 Author Organization [facility] Address [address] [place] [address], [address] [place] [address]- Care Team Providers Name Role Phone Ju Hatch MD Primary Care Physician [place] [facility] [place]07[place]21 - 12/07/21 [facility] [facility] [address] [place] [address], [address] [place] [address]- Allergies, Adverse Reactions, Alerts Substance Reaction Severity Status Zofran heart palpitations Active Immunizations Given and Recorded Vaccine Date Status Refusal Reason Varicella Virus Vaccine 10/01/21 Recorded Varicella Virus Vaccine 08/31/21 Recorded Varicella Virus Vaccine 05/09/09 Given SARS-CoV-2 mRNA (masyrco-lfqv-ehmwf) vax 08/28/21 Recorde d SARS-CoV-2 (COVID-19) mRNA [...] 06/21/93 Given 1Result Comment: Patient tolerated well [id number] Note: MENCEVAX Medications Plan B One-Step 1.5 mg oral tablet 1.5 mg, 1, tablet, By Mouth, Once, # 1 tablet, Refills 0, Tot. Refills 0, Soft Stop, 11/14/21 15:26:00 EDT, Route to Pharmacy Electronically, [facility]/pharmacy #[id number], Partial fill upon patient request if the [...]
--- OUTSIDE RECORDS SUMMARY | 2022-02-20 06:59 | XMS_ITS | Continuity of Care Document ---
:1990 Author Organization [facility] Address [address] [place] [address]- Care Team Providers Name Role Phone Mamie DONIS, Ju Johnson Primary Care Physician [facility] Date(s): 11/18/21 - 12/18/21 [facility] [address] [place] [address]- Allergies, Adverse Reactions, Alerts Substance Reaction Severity Status Zofran heart palpitations Active Immunizations Given and Recorded Vaccine Date Status Refusal Reason Varicella Virus Vaccine 10/01/21 Recorded Varicella Virus Vaccine 08/31/21 Recorded Varicella Virus Vaccine 05/09/09 Given SARS-CoV-2 mRNA ([id number]) vax 08/28/21 Recorde d SARS-CoV-2 (COVID-19) mRNA [...] 06/21/93 Given 1Result Comment: Patient tolerated well [id number] Note: MENCEVAX Medications Plan B One-Step 1.5 mg oral tablet 1.5 mg, 1, tablet, By Mouth, Once, # 1 tablet, Refills 0, Tot. Refills 0, Soft Stop, 11/14/21 15:26:00 EDT, Route to Pharmacy Electronically, [id number], Partial fill upon patient request if the [...]
--- OUTSIDE RECORDS SUMMARY | 2022-02-20 06:59 | XMS_ITS | Continuity of Care Document ---
:1990 Author Organization [facility] Address [address] [place] [address]- Care Team Providers Name Role Phone Victor Hugo Florez MD Primary Care Physician En[place] [facility] [place] Date(s): 03/31/20 - 05/05/20 [facility] [address] [place], [place] [address] Attending Physician: Victor Hugo Florez MD Allergies, [...] toxoids (DT) 07/11/06 Given diphtheria-tetanus toxoids (DT) 2/6/95 Given diphtheria-tetanus toxoids (DT) 02/01/93 Given diphtheria-tetanus toxoids (DT) 92 Given diphtheria-tetanus toxoids (DT) 92 Given Measles Virus Vaccine 06/21/93 Given 1Result Comment: Patient tolerated well [id number] Note: MENCEVAX Medications Scarlet 30 mg oral tablet 1 tablet = 30 mg, By Mouth, Once, # 1 tablet, 0 Refills, Soft Stop, 04/20/20 16:48:00 EST, Tablet, [facility]/pharmacy #[id number], Partial fill upon patient request if the prescription is for a schedule II opioid drug., 173, cm, 04/20/20 16:15:00 EST, Height, 94.... Start Date: 04/20/20 Status: Orderedferrous sulfate 324 mg (65 mg elemental iron) oral delayed release tablet 1 tablet = 324 mg, By Mouth, Daily, # 30 tablet, 6 Refills, Maintenance, 06/14/19 14:22:00 EST, [facility]/pharmacy #[id number], 170.18, cm, 06/14/19 14:16:00 EST, Height, 80.8, kg, 06/22/18 13:32:00 EST, Dry Weight Start Date: 06/14/19 Status: Orderedindomethacin 75 mg oral capsule, extended release 1 capsule = 75 mg, By Mouth, Daily, with food or milk, # 30 capsule, 1 Refills, Maintenance, 03/30/20 18:10:00 EST, ER Capsule, [facility]/pharmacy #[id number], 173, cm, 03/09/20 15:36:00 EDT, Height, 89.9, kg, 08/18/19 18:10:00 EDT, Dry Weight Start Date: 03/30/20 Status: OrderedNexplanon 68 mg subcutaneous implant 1 each = 68 mg, Subcutaneous Infusion, Once, Pharmacy Supplied and inserted by Katia MORALES on 04/20/2020 lot#[id number] exp#06/05/2022 [facility]#[id number], # 1 each, 0 Refills, Soft Stop, 03/21/20 9:10:00 EST, [facility], 173, cm, 1... Start Date: 03/21/20 Status: OrderedPrenatal Multivitamins with Vitamin B Complex, Vitamin C, Minerals and L-Methylfolate oral capsule 1 capsule, By Mouth, Daily, # 60 capsule, 3 Refills, Maintenance, 08/21/19 5:58:00 EDT, Capsule, [facility]/pharmacy #[id number], 1 capsule By Mouth Daily, 173, cm, 08/21/19 0:20:00 EDT, Height, 89.9, kg, 08/18/19 18:10:00 EDT, Dry Weight Start Date: 08/21/19 Status: Orderedpropranolol 10 mg oral tablet 10 mg, 1, tablet, By Mouth, 2 times a day, # 60 tablet, Refills 2, Tot. Refills 2, Maintenance, 08/21/19 5:58:00 EDT, Route to Pharmacy Electronically, [facility]/pharmacy #[id number], 173, cm, 08/21/19 0:20:00 EDT, Height, [...]
--- OUTSIDE RECORDS SUMMARY | 2022-02-20 06:59 | XMS_ITS | Continuity of Care Document ---
:1990 Author Organization [facility] Address [address] [place] [address]- Care Team Providers Name Role Phone Victor Hugo Florez MD Primary Care Physician Encounter [facility] [place] Date(s): 05/10/19 - 05/17/19 [facility] [address] [place] [address] Encounter Diagnosis Right knee pain (Discharge Diagnosis) - 05/10/19 Attending Physician: Armando Franks MD Allergies, Adverse Reactions, Alerts Substance Reaction [...] 03/22/19 14:04:07 EST, Route to Pharmacy Electronically, [id number], [facility]/pharmacy #[id number] Start Date: 03/22/19 Status: Orderedmagnesium oxide [...] 05/24/19 13:19:00 EST, 05/10/19 13:17:00 EST, Tablet, [facility]/pharmacy #[id number], 170.18, cm, 05/10/19... Start Date: 05/10/19 Stop Date: 05/24/19 Status: Ordered Problem List Condition Effective Dates Status Health Status Informant Genital HSV(Confirmed)1 Active Hyperemesis gravidarum(Confirmed) Active Paroxysmal SVT (supraventricular Active tachycardia)(Confirmed) 1last outbreak in may 2018, take acyclovir as needed Diagnosis Diagnosis Type Effective Dates Health Status Clinical In formant Service Right knee pain Discharge 05/10/19 Diagnosis Vital Signs Most recent to oldest [Reference Range]: 1 Height 170.18 cm (05/10/19 12:52 PM) Weight 86.7 kg (05/10/19 12:52 PM) Oxygen Saturation [94-100 %] 99 % (05/10/19 12:52 PM) Pulse Rate [55-90 bpm] 101 bpm *H* (05/10/19 12:52 PM) Body Mass Index [18.5-24.99] 29.94 *H* (05/10/19 12:52 PM) Blood Pressure [90-138/55-84 mm Hg] 120/60 mm Hg (05/10/19 12:52 PM) Mode of Delivery (Oxygen) Room air (05/10/19 12:52 PM) Blood pressure sites Arm, left (05/10/19 12:52 PM) Social History Social History Type Response Smoking Status Never (less than 100 in life time); Tobacco user in household: No entered on: 01/11/19 Sex
--- OUTSIDE RECORDS SUMMARY | 2022-02-20 06:59 | XMS_ITS | Continuity of Care Document ---
:1990 Author Organization [facility] p Address [address] [place] [address], [address] [place] [address]- Care Team Providers Name Role Phone Victor Hugo Florez MD Primary Care Physician [place] [facility] [place] Date(s): 07/01/19 - 07/08/19 [facility] [address] [place] [address], [address] [place] [address]- Attending Physician: Ethan Huerta MD Referring Physician: Victor Hugo Florez MD [...] 06/21/93 Given 1Result Comment: Patient tolerated well [id number] Note: MENCEVAX Medications ferrous sulfate 324 mg [...] Maintenance, FAX to [facility] [phone], 06/14/19 14:38:00 EST, Phone number for [facility] ; [address] [place] [address] ; [facility] Start Date: 06/14/19 Status: OrderedPrenatal Cradle See [...] outbreak in may 2018, take acyclovir as [id number] on 12/31 at [facility] Most recent to oldest [Reference Range]: 1 Height 170.18 cm (07/01/19 2:44 PM) Weight 89.93 kg (07/01/19 2:44 PM) Body Mass Index [18.5-24.99] 31.05 *>HHI* (07/01/19 2:44 PM) Blood Pressure [90-138/55-84 mm Hg] 123/68 mm Hg (07/01/19 2:44 PM) Blood pressure sites Arm, right (07/01/19 2:44 PM) Weight Obtained Via Standing scale (07/01/19 2:44 PM) Social History Social History Type Response Smoking Status Never (less than 100 in life time); Tobacco user in household: No entered on: 01/11/19 Sex
--- OUTSIDE RECORDS SUMMARY | 2022-02-20 06:59 | XMS_ITS | Continuity of Care Document ---
:1990 Author Organization [facility] Address [address] [place] [address]- Care Team Providers Name Role Phone Mamie DONIS, Ju Johnson Primary Care Physician En[place] [facility] [place] Date(s): 01/02/22 - 02/01/22 [facility] [address] [place], [place] [address] Allergies, Adverse Reactions, Alerts Substance Reaction Severity Status Zofran heart palpitations Active Immunizations Given and Recorded Vaccine Date Status Refusal Reason Varicella Virus Vaccine 10/01/21 Recorded Varicella Virus Vaccine 08/31/21 Recorded Varicella Virus Vaccine 05/09/09 Given SARS-CoV-2 mRNA ([id number]) vax 08/28/21 Recorde d SARS-CoV-2 (COVID-19) mRNA [...] 06/21/93 Given 1Result Comment: Patient tolerated well [id number] Note: MENCEVAX Medications Plan B One-Step 1.5 mg oral tablet 1.5 mg, 1, tablet, By Mouth, Once, # 1 tablet, Refills 0, Tot. Refills 0, Soft Stop, 11/14/21 15:26:00 EDT, Route to Pharmacy Electronically, [facility]/pharmacy #[id number], Partial fill upon patient request if the prescription is for a schedule II opioid drug.,... Start Date: 11/14/21 Status: OrderedvalACYclovir 500 mg oral tablet 1, tablet, By Mouth, Daily, # 30 tablet, Refills 0, Maintenance, 01/28/22 10:22:00 EDT, Route to Pharmacy Electronically, [facility] [id number], 170, cm, 11/22/21 11:47:00 EDT, Height, 78.2, kg, 11/14/21 16:02:00 EDT, Dry Weight Start Date: 01/28/22 Status: OrderedXulane 150 mcg-35 mcg/24 hr transdermal film, extended release 1 patch, Topically, Every week, apply a new patch weekly for 3 weeks, remove for 1 week, then repeatcycle, # 9 each, 4 Refills, Maintenance, 12/19/21 16:13:00 EDT, [facility]/pharmacy #[id number], Partial fill [...] Team PersonnelName: Mamie DONIS, Ju Johnson Address: [address] [place] [address] Adult & Pediatric [place], [place] [address]
--- OUTSIDE RECORDS SUMMARY | 2022-02-20 06:59 | XMS_ITS | Continuity of Care Document ---
:1990 Author Organization [facility] [employer] [facility] p Address [address] [place] [address], [address] [place] [address]- Care Team Providers Name Role Phone Gautam DONIS, Victor Hugo Primary Care Physician [place] [facility] [place]12[place]19 - 07/19/19 [facility] [address] [place] [address], [address] [place] [address]- Attending Physician: Jacinda Guerra MD Referring Physician: [...] 06/21/93 Given 1Result Comment: Patient tolerated well [id number] Note: MENCEVAX Medications ferrous sulfate 324 mg [...] Maintenance, FAX to [facility] [phone], 06/14/19 14:38:00 EST, Phone number for [facility] ; [address] [place] [address] ; [facility] Start Date: 06/14/19 Status: OrderedPrenatal [...] outbreak in may 2018, take acyclovir as [id number] on 12/31 at V[facility] Signs Most recent to oldest [Reference Range]: 1 Height 170.18 cm (07/12/19 2:18 PM) Weight 89.35 kg (07/12/19 2:18 PM) Body Mass Index [18.5-24.99] 30.85 *>HHI* (07/12/19 2:18 PM) Blood Pressure [90-138/55-84 mm Hg] 123/68 mm Hg (07/12/19 2:18 PM) Blood pressure sites Arm, right (07/12/19 2:18 PM) Weight Obtained Via Standing scale (07/12/19 2:18 PM) Social History Social History Type Response Smoking Status Never (less than 100 in life time); Tobacco user in household: No entered on: 01/11/19 Sex
--- OUTSIDE RECORDS SUMMARY | 2022-02-20 06:59 | XMS_ITS | Continuity of Care Document ---
:1990 Author Organization [facility] [employer] [facility] p Address [address] [place] [address], [address] [place] [address]- Care Team Providers Name Role Phone Gautam DONIS, Victor Hugo Primary Care Physician En[place] [facility] [place] Date(s): 06/01/19 - 09/29/19 [facility] [place] [employer] [facility] [address] [facility], [address] [place] [address]- [facility] Attending Physician: Jacinda Guerra MD Referring Physician: [...] 06/21/93 Given 1Result Comment: Patient tolerated well [id number] Note: MENCEVAX Medications ferrous sulfate 324 mg (65 mg elemental iron) oral delayed release tablet 1 tablet = 324 mg, By Mouth, Daily, # 30 tablet, 6 Refills, Maintenance, 06/14/19 14:22:00 EST, [facility]/pharmacy #[id number], 170.18, cm, 06/14/19 14:16:00 EST, Height, 80.8, kg, 06/22/18 13:32:00 EST, Dry Weight Start Date: 06/14/19 Status: OrderedPrenatal Multivitamins with Vitamin B Complex, Vitamin C, Minerals and L-Methylfolate oral capsule 1 capsule, By Mouth, Daily, # 60 capsule, 3 Refills, Maintenance, 08/21/19 5:58:00 EDT, Capsule, [facility]/pharmacy #[id number], 1 capsule By Mouth Daily, 173, cm, 08/21/19 0:20:00 EDT, Height, 89.9, kg, 08/18/19 18:10:00 EDT, Dry Weight Start Date: 08/21/19 Status: Orderedpropranolol 10 mg oral tablet 10 mg, 1, tablet, By Mouth, 2 times a day, # 60 tablet, Refills 2, Tot. Refills 2, Maintenance, 08/21/19 5:58:00 EDT, Route to Pharmacy Electronically, [facility]/pharmacy #[id number], 173, cm, 08/21/19 0:20:00 [...]
--- OUTSIDE RECORDS SUMMARY | 2022-02-20 06:59 | XMS_ITS | Continuity of Care Document ---
:1990 Author Organization [facility] Address [address] [place] [address]- Care Team Providers Name Role Phone Mamie DONIS, Ju Johnson Primary Care Physician [facility]counter [facility] Date(s): 10/01/21 - 10/31/21 [facility] [address] [place], [place] [address] Allergies, Adverse Reactions, Alerts Substance [...] 06/21/93 Given 1Result Comment: Patient tolerated well [id number] Note: MENCEVAX Medications aspirin 325 mg oral delayed release tablet 325 mg, 1, tablet, By Mouth, Daily, Take one tablet daily for 30 days after ablation then discontinue, # 30 tablet, Refills 0, Tot. Refills 0, Maintenance, 09/12/21 10:12:00 EDT, Route to Pharmacy Electronically, [facility]/pharmacy #[id number], Partial fill upon... Start Date: 09/12/21 Stop Date: 10/12/21 Status: OrderedNexplanon 68 mg subcutaneous implant 1 each = 68 mg, Subcutaneous Infusion, Once, Pharmacy Supplied and inserted by Katia Oquendo CNM on 04/20/2020 lot#[id number] exp#06/05/2022 [facility]#[id number], # 1 each, 0 Refills, Soft Stop, 03/21/20 9:10:00 EST, [facility], 173, cm, 1... [...]
--- OUTSIDE RECORDS SUMMARY | 2022-02-20 06:59 | XMS_ITS | Continuity of Care Document ---
:1990 Author Organization [facility] Address [address] [place] [address]- Care Team Providers Name Role Phone Victor Hugo Florez MD Primary Care Physician [facility]counter [facility] Date(s): 03/31/20 - 04/30/20 [facility] [address] [place], [place] [address] Allergies, Adverse Reactions, Alerts Substance Reaction [...] 06/21/93 Given 1Result Comment: Patient tolerated well [id number] Note: MENCEVAX Medications Scarlet 30 mg oral tablet 1 tablet = 30 mg, By Mouth, Once, # 1 tablet, 0 Refills, Soft Stop, 04/20/20 16:48:00 EST, Tablet, [facility]/pharmacy #[id number], Partial fill upon patient [...] Refills, Maintenance, 03/30/20 18:10:00 EST, ER Capsule, [facility]/pharmacy #[id number], 173, cm, 03/09/20 15:36:00 EDT, Height, 89.9, kg, 08/18/19 18:10:00 EDT, Dry Weight Start Date: 03/30/20 Status: OrderedNexplanon 68 mg subcutaneous implant 1 each = 68 mg, Subcutaneous Infusion, Once, Pharmacy Supplied and inserted by Katia Oquendo [facility] on 04/20/2020 lot#[id number] exp#06/05/2022 [facility] [place]note 2]#[id number], # 1 each, 0 Refills, Soft Stop, 03/21/20 9:10:00 EST, [facility], 173, cm, 1... Start [...]
--- OUTSIDE RECORDS SUMMARY | 2022-02-20 06:59 | XMS_ITS | Continuity of Care Document ---
:1990 Author Organization [facility] p Address [address] [place] [address], [address] [place] [address]- Care Team Providers Name Role Phone Ju Hatch MD Primary Care Physician [place] [facility] [place] 01/10/22 - 02/13/22 [facility] [address] [place] [address], [address] [place] [address] Attending Physician: Not on Staff, Attending MD Referring Physician: Ju Hatch MD Allergies, Adverse Reactions, Alerts Substance Reaction Severity Status Zofran heart palpitations Active Immunizations Given and Recorded Vaccine Date Status Refusal Reason Varicella Virus Vaccine 10/01/21 Recorded Varicella Virus Vaccine 08/31/21 Recorded Varicella Virus Vaccine 05/09/09 Given SARS-CoV-2 mRNA ([id number]) vax 08/28/21 Recorde d SARS-CoV-2 (COVID-19) mRNA [...] 06/21/93 Given 1Result Comment: Patient tolerated well [id number] Note: MENCEVAX Medications Plan B One-Step 1.5 mg oral tablet 1.5 mg, 1, tablet, By Mouth, Once, # 1 tablet, Refills 0, Tot. Refills 0, Soft Stop, 11/14/21 15:26:00 EDT, Route to Pharmacy Electronically, [facility]/pharmacy #[id number], Partial fill upon patient request if the prescription is for a schedule II opioid drug.,... Start Date: 11/14/21 Status: OrderedvalACYclovir 500 mg oral tablet 1, tablet, By Mouth, Daily, # 30 tablet, Refills 0, Maintenance, 01/28/22 10:22:00 EDT, Route to Pharmacy Electronically, [facility] [id number], 170, cm, 11/22/21 11:47:00 EDT, Height, 78.2, kg, 11/14/21 16:02:00 EDT, Dry Weight Start Date: 01/28/22 Status: OrderedXulane 150 mcg-35 mcg/24 hr transdermal film, extended release 1 patch, Topically, Every week, apply a new patch weekly for 3 weeks, remove for 1 week, then repeatcycle, # 9 each, 4 Refills, Maintenance, 12/19/21 16:13:00 EDT, [facility]/pharmacy #[id number], Partial fill upon [...] PersonnelName: Mamie DONIS, Ju Johnson Address: Address: [address] [place] [address] Adult & Pediatric [place], [place] [address]
--- OUTSIDE RECORDS SUMMARY | 2022-02-20 06:59 | XMS_ITS | Continuity of Care Document ---
:1990 Author Organization [facility] p Address [address] [place] [address], [address] [place] [address]- Care Team Providers Name Role Phone Ju Hatch MD Primary Care Physician [facility] [place] Date(s): 11/14/21 - 12/14/21 [facility] [employer] [facility] [address] [place] [address], [address] [place] [id number] Attending Physician: Mervin Bland Admitting Physician: Mervin Bland Referring Physician: AdmtrMervin Allergies, Adverse Reactions, Alerts Substance Reaction Severity Status Zofran heart palpitations Active Immunizations Given and Recorded Vaccine Date Status Refusal Reason Varicella Virus Vaccine 10/01/21 Recorded Varicella Virus Vaccine 08/31/21 Recorded Varicella Virus Vaccine 05/09/09 Given SARS-CoV-2 mRNA ([id number]-[id number]) vax 08/28/21 Recorde d SARS-CoV-2 (COVID-19) mRNA [...] 06/21/93 Given 1Result Comment: Patient tolerated well [id number] Note: MENCEVAX Medications Plan B One-Step 1.5 mg oral tablet 1.5 mg, 1, tablet, By Mouth, Once, # 1 tablet, Refills 0, Tot. Refills 0, Soft Stop, 11/14/21 15:26:00 EDT, Route to Pharmacy Electronically, [facility]/pharmacy #[id number], Partial fill upon patient request if the [...]
--- OUTSIDE RECORDS SUMMARY | 2022-02-20 06:59 | XMS_ITS | Continuity of Care Document ---
:1990 Author Organization [facility] [employer] [facility] p Address [address] [place] [address], [address] [place] [address]- Care Team Providers Name Role Phone Gautam DONIS, Victor Hugo Primary Care Physician En[place] [facility] [place] Date(s): 05/11/19 - 09/08/19 [facility] [address] [place] [address], [address] [place] [address]- Attending Physician: Jacinda Gurera MD Referring Physician: Katia Oquendo CNM Allergies, [...] 06/21/93 Given 1Result Comment: Patient tolerated well [id number] Note: MENCEVAX Medications clindamycin 150 mg oral capsule 3 capsule = 450 mg, By Mouth, Every 8 hours, for 7 days, # 63 capsule, 0 Refills, Acute 09/13/19 9:54:00 EDT, 09/06/19 9:54:00 EDT, Capsule, [facility]/pharmacy #[id number], please note this is a second course of Clindamycin to complete a 14 day course. Dx: mastit... Start Date: 09/06/19 Stop Date: 09/13/19 Status: Orderedferrous sulfate 324 mg (65 mg elemental iron) oral delayed release tablet 1 tablet = 324 mg, By Mouth, Daily, # 30 tablet, 6 Refills, Maintenance, 06/14/19 14:22:00 EST, [facility]/pharmacy #[id number], 170.18, cm, 06/14/19 14:16:00 EST, Height, 80.8, kg, 06/22/18 13:32:00 EST, Dry Weight Start Date: 06/14/19 Status: Orderedibuprofen 800 mg oral tablet 800 mg, 1, tablet, By Mouth, 3 times a day, # 90 tablet, Refills 0, Tot. Refills 0, Acute 09/21/19 0:00:00 EDT, 08/21/19 9:54:00 EDT, Route to Pharmacy Electronically, [facility]/pharmacy #[id number], 173, cm, 08/21/19 0:20:00 EDT, Height, 89.9, kg, 08/18/19 18:10... Start Date: 08/21/19 Stop Date: 09/21/19 Status: OrderedPrenatal Multivitamins with Vitamin B Complex, Vitamin C, Minerals and L-Methylfolate oral capsule 1 capsule, By Mouth, Daily, # 60 capsule, 3 Refills, Maintenance, 08/21/19 5:58:00 EDT, Capsule, [facility]/pharmacy #[id number], 1 capsule By Mouth Daily, 173, cm, 08/21/19 0:20:00 EDT, Height, 89.9, kg, 08/18/19 18:10:00 EDT, Dry Weight Start Date: 08/21/19 Status: Orderedpropranolol 10 mg oral tablet 10 mg, 1, tablet, By Mouth, 2 times a day, # 60 tablet, Refills 2, Tot. Refills 2, Maintenance, 08/21/19 5:58:00 EDT, Route to Pharmacy Electronically, [facility]/pharmacy #[id number], 173, cm, 08/21/19 0:20:00 EDT, Height, 89.9, kg, 08/18/19 18:10:00 EDT, Dry Weight Start Date: 08/21/19 Status: OrderedTylenol 325 mg oral capsule 2 capsule = 650 mg, By Mouth, Every 4 hours, PRN as needed for pain, # 20 capsule, 0 Refills, Acute 09/21/19 0:00:00 EDT, 08/21/19 9:54:00 EDT, Capsule, [facility]/pharmacy #[id number], 173, cm, 08/21/19 0:20:00 EDT, [...]
--- OUTSIDE RECORDS SUMMARY | 2022-02-20 06:59 | XMS_ITS | Continuity of Care Document ---
:1992 Author Organization [facility] p Address [address] [place] [address], [address] [place] [address]- Care Team Providers Name Role Phone Gautam DONIS, Victor Hugo Primary Care Physician [place] [facility] [place] 06/24/19 [facility] [address] [place] [address], [address] [place] [address]- Attending Physician: Mervin Bland Admitting Physician: Mervin Bland Referring Physician: Mervin Bland Allergies, Adverse Reactions, Alerts Substance Reaction Severity [...] 06/21/93 Given 1Result Comment: Patient tolerated well [id number] Note: MENCEVAX Medications Colace sodium 100 mg oral capsule 100 mg, 1, capsule, By Mouth, 2 times a day, PRN, # 60 capsule, Refills 3, Tot. Refills 3, Maintenance, for constipation, 03/22/19 14:04:07 EST, Route to Pharmacy Electronically, [id number], [facility]/pharmacy #[id number] Start Date: 03/22/19 Status: Orderedferrous sulfate 324 mg (65 mg elemental iron) oral delayed release tablet 1 tablet = 324 mg, By Mouth, Daily, # 30 tablet, 6 Refills, Maintenance, 06/14/19 14:22:00 EST, [facility]/pharmacy #[id number], 170.18, cm, 06/14/19 14:16:00 EST, Height, 80.8, kg, 06/22/18 13:32:00 EST, Dry Weight Start Date: 06/14/19 Status: OrderedLSO for lower back pain LSO for lower back pain, See Instructions, # 1 each, Refills 0, Tot. Refills 0, Maintenance, FAX to [facility] [phone], 06/14/19 14:38:00 EST, Phone number for [facility] ; [address] [place] [address] ; WZahira Godinez... Start Date: 06/14/19 Status: [...] outbreak in may 2018, take acyclovir as ygyyli4O/S on 12/31 at Social History Social History Type Response Smoking Status Never (less than 100 in life time); Tobacco user in household: No entered on: 01/11/19 Sex
--- OUTSIDE RECORDS SUMMARY | 2022-02-20 06:59 | XMS_ITS | Continuity of Care Document ---
:1992 Author Organization [facility] Address [address] [place] [address]- Care Team Providers Name Role Phone Victor Hugo Florez MD Primary Care Physician [facility] Date(s): 05/31/19 - 06/07/19 [facility] [address] [place] [address]- [facility] Attending Physician: Bala Champion MD Allergies, Adverse Reactions, Alerts Substance Reaction [...] 06/21/93 Given 1Result Comment: Patient tolerated well [id number] Note: MENCEVAX Medications Colace sodium 100 mg oral capsule 100 mg, 1, capsule, By Mouth, 2 times a day, PRN, # 60 capsule, Refills 3, Tot. Refills 3, Maintenance, for constipation, 03/22/19 14:04:07 EST, Route to Pharmacy Electronically, [id number], [facility]/pharmacy #[id number] Start Date: 03/22/19 Status: Orderedmagnesium oxide [...] outbreak in may 2018, take acyclovir as usputp7J/S on 12/31 at Vital Signs Most recent to oldest [Reference Range]: 1 Height 170.18 cm (05/31/19 1:23 PM) Weight 85.1 kg (05/31/19 1:23 PM) Pulse Rate [55-90 bpm] 123 bpm *H* (05/31/19 1:23 PM) Body Mass Index [18.5-24.99] 29.38 *H* (05/31/19 1:23 PM) Blood Pressure [90-138/55-84 mm Hg] 110/60 mm Hg (05/31/19 1:23 PM) Social History Social History Type Response Smoking Status Never (less than 100 in life time); Tobacco user in household: No entered on: 01/11/19 Sex
--- OUTSIDE RECORDS SUMMARY | 2022-02-20 06:59 | XMS_ITS | Continuity of Care Document ---
:[address] [facility] Address [address] [place] [address]- Care Team Providers Name Role Phone Mamie DONIS, Ju Johnson Primary Care Physician [facility]counter [facility] Date(s): 12/17/21 - 01/16/22 [facility] [address] [place] [address]- Allergies, Adverse Reactions, Alerts Substance Reaction Severity Status Zofran heart palpitations Active Immunizations Given and Recorded Vaccine Date Status Refusal Reason Varicella Virus Vaccine 10/01/21 Recorded Varicella Virus Vaccine 08/31/21 Recorded Varicella Virus Vaccine 05/09/09 Given SARS-CoV-2 mRNA ([id number]-gdsh-[id number]) vax 08/28/21 Recorde d SARS-CoV-2 (COVID-19) mRNA [...] 06/21/93 Given 1Result Comment: Patient tolerated well [id number] Note: MENCEVAX Medications Plan B One-Step 1.5 mg oral tablet 1.5 mg, 1, tablet, By Mouth, Once, # 1 tablet, Refills 0, Tot. Refills 0, Soft Stop, 11/14/21 15:26:00 EDT, Route to Pharmacy Electronically, [facility]/pharmacy #[id number], Partial fill upon patient request if the prescription is for a schedule II opioid drug.,... Start Date: 11/14/21 Status: OrderedValtrex 500 mg oral tablet 500 mg, 1, tablet, By Mouth, Daily, for 30 days, # 30 tablet, Refills 0, Tot. Refills 0, Acute 02/01/22 16:23:00 EDT, 01/02/22 16:23:00 EDT, Route to Pharmacy Electronically, [facility]/pharmacy #[id number], Partial fill upon [...] Team PersonnelName: Mamie DONIS, Ju Johnson Address: [address] [place] [address] Adult [facility] Pediatric Med [address]
--- OUTSIDE RECORDS SUMMARY | 2022-02-20 06:59 | XMS_ITS | Continuity of Care Document ---
:1992 Author Organization [facility] Address [address] [place] [address]- Care Team Providers Name Role Phone Ju Hatch MD Primary Care Physician Encounter [facility] [place] Date(s): 12/03/21 - 01/02/22 [facility] [address] [place] [address]- Attending Physician: AdmMervin dangelo Admitting Physician: Admtr ArKeegan Referring Physician: Admtr, Ar8 Allergies, Adverse Reactions, Alerts Substance Reaction Severity Status Zofran heart palpitations Active Immunizations Given and Recorded Vaccine Date Status Refusal Reason Varicella Virus Vaccine 10/01/21 Recorded Varicella Virus Vaccine 08/31/21 Recorded Varicella Virus Vaccine 05/09/09 Given SARS-CoV-2 mRNA ([id number]-[id number]) vax 08/28/21 Recorde d SARS-CoV-2 (COVID-19) mRNA [...] 06/21/93 Given 1Result Comment: Patient tolerated well [id number] Note: MENCEVAX Medications Plan B One-Step 1.5 mg oral tablet 1.5 mg, 1, tablet, By Mouth, Once, # 1 tablet, Refills 0, Tot. Refills 0, Soft Stop, 11/14/21 15:26:00 EDT, Route to Pharmacy Electronically, [facility]/pharmacy #[id number], Partial fill upon patient request if the prescription is for a schedule II opioid drug.,... Start Date: 11/14/21 Status: OrderedValtrex 500 mg oral tablet 500 mg, 1, tablet, By Mouth, Daily, for 30 days, # 30 tablet, Refills 0, Tot. Refills 0, Acute 02/01/22 16:23:00 EDT, 01/02/22 16:23:00 EDT, Route to Pharmacy Electronically, [facility]/pharmacy #[id number], Partial fill upon patient request if [...]
--- OUTSIDE RECORDS SUMMARY | 2022-02-20 06:59 | XMS_ITS | Continuity of Care Document ---
:1992 Author Organization [facility] p Address [address] [place] [address], [address] [place] [address]- Care Team Providers Name Role Phone Gautam DONIS, Victor Hugo Primary Care Physician [place] [facility] [place] 07/26/19 - 08/05/19 [facility] [employer] [facility] [address] [place] [address], [address] [place] [address]- Attending Physician: Mervin Bland Admitting Physician: Mervin [...] 06/21/93 Given 1Result Comment: Patient tolerated well [id number] Note: MENCEVAX Medications ferrous sulfate 324 mg [...] Maintenance, FAX to [facility] [phone], 06/14/19 14:38:00 EST, Phone number for [facility] ; [address] [facility] ; [facility]... Start Date: 06/14/19 Status: OrderedPrenatal Cradle See [...] outbreak in may 2018, take acyclovir as [id number]/S on 12/31 at Social History Social History Type Response Smoking Status Never (less than 100 in life time); Tobacco user in household: No entered on: 01/11/19 Sex
--- OUTSIDE RECORDS SUMMARY | 2022-02-20 06:59 | XMS_ITS | Continuity of Care Document ---
:1992 Author Organization [facility] p Address [address] [place] [address], [address] [place] [address]- Care Team Providers Name Role Phone Ju Hatch MD Primary Care Physician Encounter [facility] [place] Date(s): 06/20/21 - [facility] [address] [place] [address], [address] [place] [id number] Attending Physician: Orquidea Jolley MD Referring Physician: Ju Hatch MD Allergies, [...] 06/21/93 Given 1Result Comment: Patient tolerated well [id number] Note: MENCEVAX Medications Nexplanon 68 mg subcutaneous implant 1 each = 68 mg, Subcutaneous Infusion, Once, Pharmacy Supplied and inserted by Katia Oquendo CNM on 04/20/2020 lot#[id number] exp#06/05/2022 [facility]#[id number], # 1 each, 0 Refills, Soft Stop, 03/21/20 9:10:00 EST, [facility], 173, cm, 1... Start Date: 03/21/20 Status: Ordered Problem List Condition Effective Dates Status Health Status Informant Anterior vaginal wall Active prolapse(Confirmed) Diastasis recti(Confirmed) Active Genital HSV(Confirmed)1 Active Paroxysmal SVT (supraventricular Active tachycardia)(Confirmed) 1last outbreak in may 2018, take acyclovir as needed Vital Signs Most recent to oldest [Reference Range]: 1 Height 173 cm (06/20/21 11:48 AM) Weight 80 kg (06/20/21 11:48 AM) Body Mass Index [18.5-24.99] 26.73 *H* (06/20/21 11:48 AM) Blood Pressure [90-138/55-84 mm Hg] 131/74 mm Hg (06/20/21 11:48 AM) Blood pressure sites Arm, right (06/20/21 11:48 AM) Weight Obtained Via Standing scale (06/20/21 11:48 AM) Social History Social History Type Response Smoking Status Never (less than 100 in life time); Tobacco user in household: No entered on: 01/11/19 Sex
--- OUTSIDE RECORDS SUMMARY | 2022-02-20 06:59 | XMS_ITS | Continuity of Care Document ---
:1992 Author Organization [facility] Address [address] [place] [address]- Care Team Providers Name Role Phone Gautam DONIS, Victor Hugo Primary Care Physician [facility]counter [facility] Date(s): 01/03/20 - 02/02/20 [facility] [address] [place] [address]- [facility] Allergies, Adverse Reactions, Alerts Substance [...] 06/21/93 Given 1Result Comment: Patient tolerated well [id number] Note: MENCEVAX Medications ferrous sulfate 324 mg (65 mg elemental iron) oral delayed release tablet 1 tablet = 324 mg, By Mouth, Daily, # 30 tablet, 6 Refills, Maintenance, 06/14/19 14:22:00 EST, [facility]/pharmacy #[id number], 170.18, cm, 06/14/19 14:16:00 EST, Height, 80.8, kg, 06/22/18 13:32:00 EST, Dry Weight Start Date: 06/14/19 Status: Orderedibuprofen 800 mg oral tablet See Instructions, TAKE 1 TABLET BY MOUTH 3 TIMES A DAY, # 90 tablet, Refills 0, Acute, Instructions Replace Required Details, Route to Pharmacy Electronically, [facility] STORE [id number], 173, cm, 11/11/19 7:59:00 EDT, Height, 89.9, kg, 08/18/19 18:10:00 EDT, . Start Date: 01/04/20 Status: OrderedNexplanon 68 mg subcutaneous implant 1 each = 68 mg, Subcutaneous Infusion, Once, # 1 each, 0 Refills, Soft Stop, 11/18/19 15:41:00 EDT, [facility], 173, cm, 11/11/19 7:59:00 EDT, Height, 89.9, kg, 08/18/19 18:10:00 EDT, Dry Weight Start Date: 11/18/19 Status: OrderedPrenatal Multivitamins with Vitamin B Complex, Vitamin C, Minerals and L-Methylfolate oral capsule 1 capsule, By Mouth, Daily, # 60 capsule, 3 Refills, Maintenance, 08/21/19 5:58:00 EDT, Capsule, [facility]/pharmacy #[id number], 1 capsule By Mouth Daily, 173, cm, 08/21/19 0:20:00 EDT, Height, 89.9, kg, 08/18/19 18:10:00 EDT, Dry Weight Start Date: 08/21/19 Status: Orderedpropranolol 10 mg oral tablet 10 mg, 1, tablet, By Mouth, 2 times a day, # 60 tablet, Refills 2, Tot. Refills 2, Maintenance, 08/21/19 5:58:00 EDT, Route to Pharmacy Electronically, [facility]/pharmacy #[id number], 173, cm, 08/21/19 0:20:00 EDT, Height, [...]
--- OUTSIDE RECORDS SUMMARY | 2022-02-20 06:59 | XMS_ITS | Continuity of Care Document ---
:[address] [facility] Address [address] [place] [address]- Care Team Providers Name Role Phone Gautam DONIS, Victor Hugo Primary Care Physician [facility]counter [facility] Date(s): 11/29/19 - 12/29/19 [facility] [address] [place] [address]- [facility] Allergies, Adverse Reactions, Alerts Substance [...] 06/21/93 Given 1Result Comment: Patient tolerated well [id number] Note: MENCEVAX Medications ferrous sulfate 324 mg (65 mg elemental iron) oral delayed release tablet 1 tablet = 324 mg, By Mouth, Daily, # 30 tablet, 6 Refills, Maintenance, 06/14/19 14:22:00 EST, [facility]/pharmacy #[id number], 170.18, cm, 06/14/19 14:16:00 EST, Height, 80.8, kg, 06/22/18 13:32:00 EST, Dry Weight Start Date: 06/14/19 Status: OrderedNexplanon 68 mg subcutaneous implant 1 each = 68 mg, Subcutaneous Infusion, Once, # 1 each, 0 Refills, Soft Stop, 11/18/19 15:41:00 EDT, [facility], 173, cm, 11/11/19 7:59:00 EDT, Height, 89.9, kg, 08/18/19 18:10:00 EDT, Dry Weight Start Date: 11/18/19 Status: OrderedPrenatal Multivitamins with Vitamin B Complex, Vitamin C, Minerals and L-Methylfolate oral capsule 1 capsule, By Mouth, Daily, # 60 capsule, 3 Refills, Maintenance, 08/21/19 5:58:00 EDT, Capsule, [facility]/pharmacy #[id number], 1 capsule By Mouth Daily, 173, cm, 08/21/19 0:20:00 EDT, Height, 89.9, kg, 08/18/19 18:10:00 EDT, Dry Weight Start Date: 08/21/19 Status: Orderedpropranolol 10 mg oral tablet 10 mg, 1, tablet, By Mouth, 2 times a day, # 60 tablet, Refills 2, Tot. Refills 2, Maintenance, 08/21/19 5:58:00 EDT, Route to Pharmacy Electronically, [facility]/pharmacy #[id number], 173, cm, 08/21/19 0:20:00 [...]
--- OUTSIDE RECORDS SUMMARY | 2022-02-20 06:59 | XMS_ITS | Continuity of Care Document ---
:1992 Author Organization [facility] Address [address] [place] [address], [address] [place] [address]- Care Team Providers Name Role Phone Victor Hugo Florez MD Primary Care Physician [place] [facility] [place] 01/22/20 [facility] [address] [facility], [address] [place] [address]- [facility] Attending Physician: Not on Staff, Attending MD Referring Physician: Katia Oquendo CNM Allergies, [...] 06/21/93 Given 1Result Comment: Patient tolerated well [id number] Note: MENCEVAX Medications ferrous sulfate 324 mg (65 mg elemental iron) oral delayed release tablet 1 tablet = 324 mg, By Mouth, Daily, # 30 tablet, 6 Refills, Maintenance, 06/14/19 14:22:00 EST, [facility]/pharmacy #[id number], 170.18, cm, 06/14/19 14:16:00 EST, Height, 80.8, kg, 06/22/18 13:32:00 EST, Dry Weight Start Date: 06/14/19 Status: Orderedibuprofen 800 mg oral tablet See Instructions, TAKE 1 TABLET BY MOUTH 3 TIMES A DAY, # 90 tablet, Refills 0, Acute, Instructions Replace Required Details, Route to Pharmacy Electronically, [facility]ORE [id number], 173, cm, 11/11/19 7:59:00 EDT, Height, 89.9, kg, 08/18/19 18:10:00 EDT, . Start Date: 01/04/20 Status: OrderedNexplanon 68 mg subcutaneous implant 1 each = 68 mg, Subcutaneous Infusion, Once, # 1 each, 0 Refills, Soft Stop, 11/18/19 15:41:00 EDT, [facility], 173, cm, 11/11/19 7:59:00 EDT, Height, 89.9, kg, 08/18/19 18:10:00 EDT, Dry Weight Start Date: 11/18/19 Status: OrderedPrenatal Multivitamins with Vitamin B Complex, Vitamin C, Minerals and L-Methylfolate oral capsule 1 capsule, By Mouth, Daily, # 60 capsule, 3 Refills, Maintenance, 08/21/19 5:58:00 EDT, Capsule, [facility]/pharmacy #[id number], 1 capsule By Mouth Daily, 173, cm, 08/21/19 0:20:00 EDT, Height, 89.9, kg, 08/18/19 18:10:00 EDT, Dry Weight Start Date: 08/21/19 Status: Orderedpropranolol 10 mg oral tablet 10 mg, 1, tablet, By Mouth, 2 times a day, # 60 tablet, Refills 2, Tot. Refills 2, Maintenance, 08/21/19 5:58:00 EDT, Route to Pharmacy Electronically, [facility]/pharmacy #[id number], 173, cm, 08/21/19 0:20:00 EDT, Height, 89.9, kg, 08/18/19 18:10:00 EDT, Dry Weight Start Date: 08/21/19 Status: OrderedvalACYclovir 500 mg oral tablet 500 mg, 1, tablet, By Mouth, Every 12 hours, for 3 days, # 12 tablet, Refills 5, Tot. Refills 5, Acute 01/31/20 16:58:00 EDT, 01/13/20 16:58:00 EDT, Route to Pharmacy Electronically, [facility]/pharmacy #[id number], 173, cm, 11/11/19 7:59:00 EDT, [...]
--- OUTSIDE RECORDS SUMMARY | 2022-02-20 06:59 | XMS_ITS | Continuity of Care Document ---
:1990 Author Organization [facility] Address [address] [place] [address]- Care Team Providers Name Role Phone Ju Hatch MD Primary Care Physician [place] [facility] [place] 09/13/21 - 01/02/22 [facility] [address] [place] [address]- Attending Physician: Ankit Solis MD Admitting Physician: Ankit Solis MD Allergies, Adverse Reactions, Alerts Substance Reaction Severity Status Zofran heart palpitations Active Immunizations Given and Recorded Vaccine Date Status Refusal Reason Varicella Virus Vaccine 10/01/21 Recorded Varicella Virus Vaccine 08/31/21 Recorded Varicella Virus Vaccine 05/09/09 Given SARS-CoV-2 mRNA ([id number]-rfnam) vax 08/28/21 Recorde d SARS-CoV-2 (COVID-19) mRNA [...] 06/21/93 Given 1Result Comment: Patient tolerated well [id number] Note: MENCEVAX Medications Plan B One-Step 1.5 mg oral tablet 1.5 mg, 1, tablet, By Mouth, Once, # 1 tablet, Refills 0, Tot. Refills 0, Soft Stop, 11/14/21 15:26:00 EDT, Route to Pharmacy Electronically, [facility]/pharmacy #[id number], Partial fill upon patient request if the prescription is for a schedule II opioid drug.,... Start Date: 11/14/21 Status: OrderedValtrex 500 mg oral tablet 500 mg, 1, tablet, By Mouth, Daily, for 30 days, # 30 tablet, Refills 0, Tot. Refills 0, Acute 02/01/22 16:23:00 EDT, 01/02/22 16:23:00 EDT, Route to Pharmacy Electronically, [facility]/pharmacy #[id number], Partial fill upon patient request if [...]
--- OUTSIDE RECORDS SUMMARY | 2022-02-20 07:00 | XMS_ITS | Continuity of Care Document ---
:1990 Author Organization [facility] n Address [address] [place] [address]- Care Team Providers Name Role Phone Ju Hatch MD Primary Care Physician [place] [facility] [place] - 11/17/[address] [address]- Attending Physician: Ankit Solis MD Admitting Physician: [...] 06/21/93 Given 1Result Comment: Patient tolerated well [id number] Note: MENCEVAX Medications Scarlet 30 mg oral tablet 1 tablet = 30 mg, By Mouth, Once, # 1 tablet, 0 Refills, Soft Stop, 04/20/20 16:48:00 EST, Tablet, [facility]/pharmacy #[id number], Partial fill upon [...] Refills, Maintenance, 03/30/20 18:10:00 EST, ER Capsule, [facility]/pharmacy #[id number], 173, cm, 03/09/20 15:36:00 EDT, Height, 89.9, kg, 08/18/19 18:10:00 EDT, Dry Weight Start Date: 03/30/20 Status: OrderedNexplanon 68 mg subcutaneous implant 1 each = 68 mg, Subcutaneous Infusion, Once, Pharmacy Supplied and inserted by Katia Oquendo [facility] on 04/20/2020 lot#[id number] exp#06/05/2022 [facility]#[id number], # 1 each, 0 Refills, Soft Stop, 03/21/20 9:10:00 EST, [facility], 173, cm, 1... Start Date: 03/21/20 Status: OrderedPrenatal Multivitamins with Vitamin B Complex, Vitamin C, Minerals and L-Methylfolate oral capsule 1 capsule, By Mouth, Daily, # 60 capsule, 3 Refills, Maintenance, 08/21/19 5:58:00 EDT, Capsule, [facility]/pharmacy #[id number], 1 capsule By Mouth Daily, 173, cm, 08/21/19 0:20:00 EDT, Height, 89.9, kg, 08/18/19 18:10:00 EDT, Dry Weight Start Date: 08/21/19 Status: Orderedpropranolol 10 mg oral tablet 10 mg, 1, tablet, By Mouth, 2 times a day, # 60 tablet, Refills 2, Tot. Refills 2, Maintenance, 08/21/19 5:58:00 EDT, Route to Pharmacy Electronically, [facility]/pharmacy #[id number], 173, cm, 08/21/19 [...]
--- OUTSIDE RECORDS SUMMARY | 2022-02-20 07:00 | XMS_ITS | Continuity of Care Document ---
:1990 Author Organization [facility] Address [address] [place] [address]- Care Team Providers Name Role Phone Gautam DONIS, Victor Hugo Primary Care Physician [facility] Date(s): 01/13/20 - 02/12/20 [facility] [address] [place] [address]- [facility] Allergies, Adverse Reactions, Alerts Substance Reaction [...] 06/21/93 Given 1Result Comment: Patient tolerated well [id number] Note: MENCEVAX Medications ferrous sulfate 324 mg [...] Replace Required Details, Route to Pharmacy Electronically, [id number], 173, cm, 11/11/19 7:59:00 EDT, Height, 89.9, kg, 08/18/19 18:10:00 EDT, . Start Date: 01/04/20 Status: OrderedNexplanon 68 mg subcutaneous implant 1 each = 68 mg, Subcutaneous Infusion, Once, # 1 each, 0 Refills, Soft Stop, 11/18/19 15:41:00 EDT, [facility], 173, cm, 11/11/19 7:59:00 [...]
--- OUTSIDE RECORDS SUMMARY | 2022-02-20 07:00 | XMS_ITS | Continuity of Care Document ---
:1990 Author Organization [facility] p Address [address] [place] [address], [address] [place] [address]- Care Team Providers Name Role Phone Gautam DONIS, Victor Hugo Primary Care Physician En[place] [facility] [place] Date(s): 05/31/19 - 06/07/19 [facility] [address] [place] [address], [address] [place] [address]- Attending Physician: Jacinda Guerra MD Referring Physician: [...] 06/21/93 Given 1Result Comment: Patient tolerated well [id number] Note: MENCEVAX Medications Colace sodium 100 mg oral capsule 100 mg, 1, capsule, By Mouth, 2 times a day, PRN, # 60 capsule, Refills 3, Tot. Refills 3, Maintenance, for constipation, 03/22/19 14:04:07 EST, Route to Pharmacy Electronically, [id number], [facility]/pharmacy #[id number] Start Date: 03/22/19 Status: Orderedmagnesium oxide [...] outbreak in may 2018, take acyclovir as [id number]/S on 12/31 at Vital Signs Most recent to oldest [Reference Range]: 1 Height 170.18 cm (05/31/19 2:12 PM) Weight 85.0 kg (05/31/19 2:12 PM) Body Mass Index [18.5-24.99] 29.35 *H* (05/31/19 2:12 PM) Blood Pressure [90-138/55-84 mm Hg] 123/62 mm Hg (05/31/19 2:12 PM) Blood pressure sites Arm, right (05/31/19 2:12 PM) Weight Obtained Via Standing scale (05/31/19 2:12 PM) Social History Social History Type Response Smoking Status Never (less than 100 in life time); Tobacco user in household: No entered on: 01/11/19 Sex
--- OUTSIDE RECORDS SUMMARY | 2022-02-20 07:00 | XMS_ITS | Continuity of Care Document ---
:1990 Author Organization [facility] Address [address] [place] [address]- Care Team Providers Name Role Phone Gautam DONIS, Victor Hugo Primary Care Physician [facility] Date(s): 11/24/19 - 12/24/19 [facility] [address] [place] [address]- [facility] Allergies, Adverse Reactions, Alerts [...] 06/21/93 Given 1Result Comment: Patient tolerated well [id number] Note: MENCEVAX Medications ferrous sulfate 324 mg [...] 0 Refills, Soft Stop, 11/18/19 15:41:00 EDT, [facility], 173, cm, 11/11/19 7:59:00 EDT, [...]
--- OUTSIDE RECORDS SUMMARY | 2022-02-20 07:00 | XMS_ITS | Continuity of Care Document ---
:1990 Author Organization [facility] Address [address] [place] [address]- Care Team Providers Name Role Phone Victor Hugo Folrez MD Primary Care Physician [facility] Date[facility] 01/[facility]/19 - 05/21/19 [facility] [address] [place] [address]- [facility] Attending Physician: Victor Hugo Florez MD [...] 03/22/19 14:04:07 EST, Route to Pharmacy Electronically, [id number], [facility]/pharmacy #[id number] Start Date: 03/22/19 Status: Orderedmagnesium oxide [...] 05/24/19 13:19:00 EST, 05/10/19 13:17:00 EST, Tablet, [facility]/pharmacy #[id number], 170.18, cm, 05/10/19... Start Date: 05/10/19 Stop Date: 05/24/19 Status: Ordered Problem List Condition Effective Dates Status Health Status Informant Genital HSV(Confirmed)1 Active Hyperemesis gravidarum(Confirmed) Active Paroxysmal SVT (supraventricular Active tachycardia)(Confirmed) (Confirmed)2 11/21/18 Active 1last outbreak in may 2018, take acyclovir as gklaly4C/S on 12/31 at Social History Social History Type Response Smoking Status Never (less than 100 in life time); Tobacco user in household: No entered on: 01/11/19 Sex
--- OUTSIDE RECORDS SUMMARY | 2022-02-20 07:00 | XMS_ITS | Continuity of Care Document ---
:1990 Author Organization [facility] Address [address] [place] [address], [address] [place] [address]- Care Team Providers Name Role Phone Victor Hugo Florez MD Primary Care Physician [place] [facility] 09/13/19 - 09/20/19 [facility] [address] [facility], [address] [place] [address]- [facility] Attending Physician: Shelly Dick MD Referring Physician: Victor Hugo Florez MD [...] 06/21/93 Given 1Result Comment: Patient tolerated well [id number] Note: MENCEVAX Medications ferrous sulfate 324 mg (65 mg elemental iron) oral delayed release tablet 1 tablet = 324 mg, By Mouth, Daily, # 30 tablet, 6 Refills, Maintenance, 06/14/19 14:22:00 EST, [facility]/pharmacy #[id number], 170.18, cm, 06/14/19 14:16:00 EST, Height, 80.8, kg, 06/22/18 13:32:00 EST, Dry Weight Start Date: 06/14/19 Status: OrderedPrenatal Multivitamins with Vitamin B Complex, Vitamin C, Minerals and L-Methylfolate oral capsule 1 capsule, By Mouth, Daily, # 60 capsule, 3 Refills, Maintenance, 08/21/19 5:58:00 EDT, Capsule, [facility]/pharmacy #[id number], 1 capsule By Mouth Daily, 173, cm, 08/21/19 0:20:00 EDT, Height, 89.9, kg, 08/18/19 18:10:00 EDT, Dry Weight Start Date: 08/21/19 Status: Orderedpropranolol 10 mg oral tablet 10 mg, 1, tablet, By Mouth, 2 times a day, # 60 tablet, Refills 2, Tot. Refills 2, Maintenance, 08/21/19 5:58:00 EDT, Route to Pharmacy Electronically, [facility]/pharmacy #[id number], 173, cm, 08/21/19 0:20:00 EDT, [...] oldest [Reference Range]: 1 Height 173 cm (09/13/19 11:57 AM) Weight 87.5 kg (09/13/19 11:57 AM) Body Mass Index [18.5-24.99] 29.24 *H* (09/13/19 11:57 AM) Blood Pressure [90-138/55-84 mm Hg] 108/72 mm Hg (09/13/19 11:57 AM) Blood pressure sites Arm, left (09/13/19 11:57 AM) Weight Obtained Via Standing scale (09/13/19 11:57 AM) Social History Social History Type Response Smoking Status Never (less than 100 in life time); Tobacco user in household: No entered on: 01/11/19 Sex
--- OUTSIDE RECORDS SUMMARY | 2022-02-20 07:00 | XMS_ITS | Continuity of Care Document ---
:1990 Author Organization [facility] Address [address] [place] [address]- Care Team Providers Name Role Phone Ju Hatch MD Primary Care Physician [facility] Date[facility]): 07/16/21 - 08/15/21 [facility] [address] [place], [place] [address] Allergies, Adverse Reactions, Alerts Substance Reaction [...] 06/21/93 Given 1Result Comment: Patient tolerated well [id number] Note: MENCEVAX Medications Nexplanon 68 mg subcutaneous implant 1 each = 68 mg, Subcutaneous Infusion, Once, Pharmacy Supplied and inserted by Katia Oquendo [facility] on 04/20/2020 lot#[id number] exp#06/05/2022 [facility]#[id number], # 1 each, 0 Refills, Soft Stop, 03/21/20 9:10:00 EST, [facility], 173, cm, 1... Start [...]
--- OUTSIDE RECORDS SUMMARY | 2022-02-20 07:00 | XMS_ITS | Continuity of Care Document ---
:1990 Author Organization [facility] Address [address] [place] [address]- Care Team Providers Name Role Phone Victor Hugo Florez MD Primary Care Physician [facility] Date[facility]s): 09/06/19 - 09/13/19 [facility] [address] [place] [address]- [facility] Attending Physician: Frida Muro MD Allergies, Adverse [...] 06/21/93 Given 1Result Comment: Patient tolerated well [id number] Note: MENCEVAX Medications ferrous sulfate 324 mg (65 mg elemental iron) oral delayed release tablet 1 tablet = 324 mg, By Mouth, Daily, # 30 tablet, 6 Refills, Maintenance, 06/14/19 14:22:00 EST, [facility]/pharmacy #[id number], 170.18, cm, 06/14/19 14:16:00 EST, Height, 80.8, kg, 06/22/18 13:32:00 EST, Dry Weight Start Date: 06/14/19 Status: Orderedibuprofen 800 mg oral tablet 800 mg, 1, tablet, By Mouth, 3 times a day, # 90 tablet, Refills 0, Tot. Refills 0, Acute 09/21/19 0:00:00 EDT, 08/21/19 9:54:00 EDT, Route to Pharmacy Electronically, [facility]/pharmacy #[id number], 173, cm, 08/21/19 0:20:00 EDT, Height, 89.9, kg, 08/18/19 18:10... Start Date: 08/21/19 Stop Date: 09/21/19 Status: OrderedPrenatal Multivitamins with Vitamin B Complex, Vitamin C, Minerals and L-Methylfolate oral capsule 1 capsule, By Mouth, Daily, # 60 capsule, 3 Refills, Maintenance, 08/21/19 5:58:00 EDT, Capsule, [facility]/pharmacy #[id number], 1 capsule By Mouth Daily, 173, cm, 08/21/19 0:20:00 EDT, Height, 89.9, kg, 08/18/19 18:10:00 EDT, Dry Weight Start Date: 08/21/19 Status: Orderedpropranolol 10 mg oral tablet 10 mg, 1, tablet, By Mouth, 2 times a day, # 60 tablet, Refills 2, Tot. Refills 2, Maintenance, 08/21/19 5:58:00 EDT, Route to Pharmacy Electronically, [facility]/pharmacy #[id number], 173, cm, 08/21/19 0:20:00 EDT, [...] oldest [Reference Range]: 1 Height 173 cm (09/06/19 10:15 AM) Oxygen Saturation [94-100 %] 99 % (09/06/19 10:15 AM) Pulse Rate [55-90 bpm] 71 bpm (09/06/19 10:15 AM) Blood Pressure [90-138/55-84 mm Hg] 127/83 mm Hg (09/06/19 10:15 AM) Respiratory Rate [16-30 br/min] 16 br/min (09/06/19 10:15 AM) Temperature [96.8-100.4 DegF] 98.3 DegF (09/06/19 10:15 AM) Mode of Delivery (Oxygen) Room air (09/06/19 10:15 AM) Blood pressure sites Arm, left (09/06/19 10:15 AM) Temperature Route Oral (09/06/19 10:15 AM) Social History Social History Type Response Smoking Status Never (less than 100 in life time); Tobacco user in household: No entered on: 01/11/19 Sex
--- OUTSIDE RECORDS SUMMARY | 2022-02-20 07:00 | XMS_ITS | Continuity of Care Document ---
:1990 Author Organization [facility] Address [address] [place] [address], [address] [place] [address]- Care Team Providers Name Role Phone Victor Hugo Florez MD Primary Care Physician Encounter [facility] [place] Date(s): 12/23/19 - 01/22/20 [facility] [address] [facility], [address] [place] [address]- [facility] Attending Physician: Mervin Bland Admitting Physician: Mervin [...] 06/21/93 Given 1Result Comment: Patient tolerated well [id number] Note: MENCEVAX Medications ferrous sulfate 324 mg (65 mg elemental iron) oral delayed release tablet 1 tablet = 324 mg, By Mouth, Daily, # 30 tablet, 6 Refills, Maintenance, 06/14/19 14:22:00 EST, [facility]/pharmacy #[id number], 170.18, cm, 06/14/19 14:16:00 EST, Height, 80.8, kg, 06/22/18 13:32:00 EST, Dry Weight Start Date: 06/14/19 Status: Orderedibuprofen 800 mg oral tablet See Instructions, TAKE 1 TABLET BY MOUTH 3 TIMES A DAY, # 90 tablet, Refills 0, Acute, Instructions Replace Required Details, Route to Pharmacy Electronically, [id number], 173, cm, 11/11/19 7:59:00 EDT, Height, 89.9, kg, 08/18/19 18:10:00 EDT, . Start Date: 01/04/20 Status: OrderedNexplanon 68 mg subcutaneous implant 1 each = 68 mg, Subcutaneous Infusion, Once, # 1 each, 0 Refills, Soft Stop, 11/18/19 15:41:00 EDT, [facility], 173, cm, 11/11/19 7:59:00 EDT, Height, 89.9, kg, 08/18/19 18:10:00 EDT, Dry Weight Start Date: 11/18/19 Status: OrderedPrenatal Multivitamins with Vitamin B Complex, Vitamin C, Minerals and L-Methylfolate oral capsule 1 capsule, By Mouth, Daily, # 60 capsule, 3 Refills, Maintenance, 08/21/19 5:58:00 EDT, Capsule, [facility]/pharmacy #[id number], 1 capsule By Mouth Daily, 173, cm, 08/21/19 0:20:00 EDT, Height, 89.9, kg, 08/18/19 18:10:00 EDT, Dry Weight Start Date: 08/21/19 Status: Orderedpropranolol 10 mg oral tablet 10 mg, 1, tablet, By Mouth, 2 times a day, # 60 tablet, Refills 2, Tot. Refills 2, Maintenance, 08/21/19 5:58:00 EDT, Route to Pharmacy Electronically, [facility]/pharmacy #[id number], 173, cm, 08/21/19 0:20:00 EDT, Height, 89.9, kg, 08/18/19 18:10:00 EDT, Dry Weight Start Date: 08/21/19 Status: OrderedvalACYclovir 500 mg oral tablet 500 mg, 1, tablet, By Mouth, Every 12 hours, for 3 days, # 12 tablet, Refills 5, Tot. Refills 5, Acute 01/31/20 16:58:00 EDT, 01/13/20 16:58:00 EDT, Route to Pharmacy Electronically, [facility]/pharmacy #[id number], 173, cm, 11/11/19 7:59:00 EDT, Height, [...]
--- OUTSIDE RECORDS SUMMARY | 2022-02-20 07:00 | XMS_ITS | Continuity of Care Document ---
:1990 Author Organization [facility] Address [address] [place] [address], [address] [place] [address]- Care Team Providers Name Role Phone Gautam DONIS, Victor Hugo Primary Care Physician [place] [facility] [place] Date(s): 03/30/19 - [facility] [address] [facility], [address] [place] [address]- Attending Physician: Jacinda Guerra MD Referring Physician: [...] 06/21/93 Given 1Result Comment: Patient tolerated well [id number] Note: MENCEVAX Medications ferrous sulfate 324 mg [...] Maintenance, FAX to [facility] [phone], 06/14/19 14:38:00 EST, Phone number for [facility] ; [address] [place] [address] ; [facility] Start Date: 06/14/19 Status: OrderedPrenatal Cradle [...] outbreak in may 2018, take acyclovir as [id number] on 12/31 at Social History Social History Type Response Smoking Status Never (less than 100 in life time); Tobacco user in household: No entered on: 01/11/19 Sex
--- OUTSIDE RECORDS SUMMARY | 2022-02-20 07:00 | XMS_ITS | Continuity of Care Document ---
:1990 Author Organization [facility] Address [address] [place] [address]- Care Team Providers Name Role Phone Victor Hugo Florez MD Primary Care Physician [facility] Date(s): 03/27/20 - 04/26/20 [facility] [address] [place], [place] [address] Allergies, Adverse Reactions, Alerts Substance [...] 06/21/93 Given 1Result Comment: Patient tolerated well [id number] Note: MENCEVAX Medications Scarlet 30 mg oral tablet 1 tablet = 30 mg, By Mouth, Once, # 1 tablet, 0 Refills, Soft Stop, 04/20/20 16:48:00 EST, Tablet, [facility]/pharmacy #[id number], Partial fill upon patient request if the prescription is for a schedule II opioid drug., 173, cm, 04/20/20 16:15:00 EST, Height, 94.... Start Date: 04/20/20 Status: Orderedferrous sulfate 324 mg (65 mg elemental iron) oral delayed release tablet 1 tablet = 324 mg, By Mouth, Daily, # 30 tablet, 6 Refills, Maintenance, 06/14/19 14:22:00 EST, [facility]/pharmacy #[id number], 170.18, cm, 06/14/19 14:16:00 EST, Height, 80.8, kg, 06/22/18 13:32:00 EST, Dry Weight Start Date: 06/14/19 Status: Orderedindomethacin 75 mg oral capsule, extended release 1 capsule = 75 mg, By Mouth, Daily, with food or milk, # 30 capsule, 1 Refills, Maintenance, 03/30/20 18:10:00 EST, ER Capsule, [facility]/pharmacy #[id number], 173, cm, 03/09/20 15:36:00 EDT, Height, 89.9, kg, 08/18/19 18:10:00 EDT, Dry Weight Start Date: 03/30/20 Status: OrderedNexplanon 68 mg subcutaneous implant 1 each = 68 mg, Subcutaneous Infusion, Once, Pharmacy Supplied and inserted by Katia Oquendo [facility] on 04/20/2020 lot#[id number] exp#06/05/2022 [facility]#[id number], # 1 each, 0 Refills, Soft Stop, 03/21/20 9:10:00 EST, [facility], 173, cm, 1... Start Date: 03/21/20 Status: OrderedPrenatal Multivitamins with Vitamin B Complex, Vitamin C, Minerals and L-Methylfolate oral capsule 1 capsule, By Mouth, Daily, # 60 capsule, 3 Refills, Maintenance, 08/21/19 5:58:00 EDT, Capsule, [facility]/pharmacy #[id number], 1 capsule By Mouth Daily, 173, cm, 08/21/19 0:20:00 EDT, Height, 89.9, kg, 08/18/19 18:10:00 EDT, Dry Weight Start Date: 08/21/19 Status: Orderedpropranolol 10 mg oral tablet 10 mg, 1, tablet, By Mouth, 2 times a day, # 60 tablet, Refills 2, Tot. Refills 2, Maintenance, 08/21/19 5:58:00 EDT, Route to Pharmacy Electronically, [facility]/pharmacy #[id number], 173, cm, 08/21/19 0:20:00 EDT, [...]
--- OUTSIDE RECORDS SUMMARY | 2022-02-20 07:00 | XMS_ITS | Continuity of Care Document ---
:1990 Author Organization [facility] Address [address] [place] [address]- Care Team Providers Name Role Phone Victor Hugo Florez MD Primary Care Physician [place] [facility] [place]): [place]19 [place] 11/18/19 [facility] [address] [place] [address]- [facility] Encounter Diagnosis depression (Discharge Diagnosis) - 11/11/19 Attending Physician: Victor Hugo Florez MD Allergies, [...] 06/21/93 Given 1Result Comment: Patient tolerated well [id number] Note: MENCEVAX Medications ferrous sulfate 324 mg [...] 0 Refills, Soft Stop, 11/18/19 15:41:00 EDT, [facility], 173, cm, 11/11/19 [...] Dates Health Clinical Infor mant Status Service Discharge 11/11/19 depression Diagnosis Vital Signs Most recent to oldest [Reference Range]: 1 Height 173 cm (11/11/19 7:59 AM) Social History Social History Type Response Smoking Status Never (less than 100 in life time); Tobacco user in household: No entered on: 01/11/19 Sex
--- OUTSIDE RECORDS SUMMARY | 2022-02-20 07:00 | XMS_ITS | Continuity of Care Document ---
:1990 Author Organization [facility] Address [address] [place] [address]- Care Team Providers Name Role Phone Mamie DONIS, Ju Johnson Primary Care Physician [facility] Date(s): 11/08/21 - 12/08/21 [facility] [address] [place], [place] [address] Allergies, Adverse Reactions, Alerts Substance Reaction Severity Status Zofran heart palpitations Active Immunizations Given and Recorded Vaccine Date Status Refusal Reason Varicella Virus Vaccine 10/01/21 Recorded Varicella Virus Vaccine 08/31/21 Recorded Varicella Virus Vaccine 05/09/09 Given SARS-CoV-2 mRNA ([id number]) vax 08/28/21 Recorde d SARS-CoV-2 (COVID-19) mRNA [...] 06/21/93 Given 1Result Comment: Patient tolerated well [id number] Note: MENCEVAX Medications Plan B One-Step 1.5 mg oral tablet 1.5 mg, 1, tablet, By Mouth, Once, # 1 tablet, Refills 0, Tot. Refills 0, Soft Stop, 11/14/21 15:26:00 EDT, Route to Pharmacy Electronically, [facility]/pharmacy #[id number], Partial fill upon patient request if the [...]
--- OUTSIDE RECORDS SUMMARY | 2022-02-20 07:00 | XMS_ITS | Continuity of Care Document ---
:1990 Author Organization [facility] Address [address] [place] [address], [address] [place] [address]- Care Team Providers Name Role Phone Victor Hugo Florez MD Primary Care Physician [place] [facility] Date(s[place] 04/20/19 - 05/26/19 [facility] [address] [place] [address], [address] [place] [address]- Attending Physician: Katia Oquendo CNM Admitting Physician: [...] 03/22/19 14:04:07 EST, Route to Pharmacy Electronically, [id number], [facility]/pharmacy #[id number] Start Date: 03/22/19 Status: Orderedmagnesium oxide [...] outbreak in may 2018, take acyclovir as [id number]/S on 12/31 at Social History Social History Type Response Smoking Status Never (less than 100 in life time); Tobacco user in household: No entered on: 01/11/19 Sex
--- OUTSIDE RECORDS SUMMARY | 2022-02-20 07:00 | XMS_ITS | Continuity of Care Document ---
:1990 Author Organization [facility] Address [address] [place] [address]- Care Team Providers Name Role Phone Mamie DONIS, Ju Johnson Primary Care Physician [facility] Date(s): 12/19/21 - 01/18/22 [facility] [address] [place] [address]- Allergies, Adverse Reactions, Alerts Substance Reaction Severity Status Zofran heart palpitations Active Immunizations Given and Recorded Vaccine Date Status Refusal Reason Varicella Virus Vaccine 10/01/21 Recorded Varicella Virus Vaccine 08/31/21 Recorded Varicella Virus Vaccine 05/09/09 Given SARS-CoV-2 mRNA ([id number]-homf-fgzza) vax 08/28/21 Recorde d SARS-CoV-2 (COVID-19) mRNA [...] 06/21/93 Given 1Result Comment: Patient tolerated well [id number] Note: MENCEVAX Medications Plan B One-Step 1.5 mg oral tablet 1.5 mg, 1, tablet, By Mouth, Once, # 1 tablet, Refills 0, Tot. Refills 0, Soft Stop, 11/14/21 15:26:00 EDT, Route to Pharmacy Electronically, [facility]/pharmacy #[id number], Partial fill upon patient request if the prescription is for a schedule II opioid drug.,... Start Date: 11/14/21 Status: OrderedValtrex 500 mg oral tablet 500 mg, 1, tablet, By Mouth, Daily, for 30 days, # 30 tablet, Refills 0, Tot. Refills 0, Acute 02/01/22 16:23:00 EDT, 01/02/22 16:23:00 EDT, Route to Pharmacy Electronically, [facility]/pharmacy #[id number], Partial fill upon patient request [...] Team PersonnelName: Mamie DONIS, Ju Johnson Address: [address] [place] [address] [facility] [address]
--- OUTSIDE RECORDS SUMMARY | 2022-02-20 07:00 | XMS_ITS | Continuity of Care Document ---
:1990 Author Organization [facility] [employer] p Address [address] [place] [address], [address] [place] [address]- Care Team Providers Name Role Phone Gautam DONIS, Victor Hugo Primary Care Physician Encounter [facility] Date(s): 05/04/19 - 09/01/19 [facility] [address] [place] [address], [address] [place] [address]- Attending Physician: Jacinda Geurra MD Referring Physician: Katia Oquendo CNM Allergies, [...] 06/21/93 Given 1Result Comment: Patient tolerated well [id number] Note: MENCEVAX Medications clindamycin 150 mg oral capsule 3 capsule = 450 mg, By Mouth, Every 8 hours, for 7 days, # 63 capsule, 0 Refills, Acute 09/07/19 11:05:00 EDT, 08/31/19 11:05:00 EDT, Capsule, [facility]/pharmacy #[id number], 173, cm, 08/31/19 11:04:00 EDT, Height, [...] 08/21/19 9:54:00 EDT, [facility] [...] 09/21/19 0:00:00 EDT, 08/21/19 9:54:00 EDT, Capsule, [facility]/pharmacy #[id number], 173, cm, [...]
--- OUTSIDE RECORDS SUMMARY | 2022-02-20 07:00 | XMS_ITS | Continuity of Care Document ---
:1990 Author Organization [facility] Address [address] [place] [address]- Care Team Providers Name Role Phone Ju Hatch MD Primary Care Physician En[id number] Date(s): 11/22/21 - 11/29/21 [facility] [address] [place], [place] [address] Attending Physician: Ju Hatch MD Allergies, Adverse Reactions, Alerts Substance Reaction Severity Status Zofran heart palpitations Active Immunizations Given and Recorded Vaccine Date Status Refusal Reason Varicella Virus Vaccine 10/01/21 Recorded Varicella Virus Vaccine 08/31/21 Recorded Varicella Virus Vaccine 05/09/09 Given SARS-CoV-2 mRNA ([id number]) vax 08/28/21 Recorde d SARS-CoV-2 (COVID-19) mRNA [...] 06/21/93 Given 1Result Comment: Patient tolerated well [id number] Note: MENCEVAX Medications Plan B One-Step 1.5 mg oral tablet 1.5 mg, 1, tablet, By Mouth, Once, # 1 tablet, Refills 0, Tot. Refills 0, Soft Stop, 11/14/21 15:26:00 EDT, Route to Pharmacy Electronically, [facility]/pharmacy #[id number], Partial fill upon patient request if the prescription is for a schedule II opioid drug.,... Start Date: 11/14/21 Status: Ordered Problem List Condition Effective Dates Status Health Status Informant Anterior vaginal wall Active prolapse(Confirmed) Diastasis recti(Confirmed) Active Genital HSV(Confirmed)1 Active Paroxysmal SVT (supraventricular Active tachycardia)(Confirmed) 1last outbreak in may 2018, take acyclovir as needed Procedures Procedure Date Related Diagnosis Body Site Status EP study and RF ablation 09/11/21 Com pleted Vital Signs Most recent to oldest [Reference Range]: 1 Height 170 cm (11/22/21 11:47 AM) Weight 78.0 kg (11/22/21 11:47 AM) Oxygen Saturation [94-100 %] 97 % (11/22/21 11:47 AM) Pulse Rate [55-90 bpm] 107 bpm *H* (11/22/21 11:47 AM) Body Mass Index [18.5-24.99] 26.99 *H* (11/22/21 11:47 AM) Blood Pressure [90-138/55-84 mm Hg] 100/64 mm Hg (11/22/21 11:47 AM) Mode of Delivery (Oxygen) Room air (11/22/21 11:47 AM) Blood pressure sites Arm, left (11/22/21 11:47 AM) Weight Obtained Via Standing scale (11/22/21 11:47 AM) Social History Social History Type Response Smoking Status Never (less than 100 in life time); Tobacco user in household: No entered on: 01/11/19 Sex
--- OUTSIDE RECORDS SUMMARY | 2022-02-20 07:00 | XMS_ITS | Continuity of Care Document ---
:1990 Author Organization [facility] p Address [address] [place] [address], [address] [place] [address]- Care Team Providers Name Role Phone Gautam DONIS, Victor Hugo Primary Care Physician [place] [facility] [place]): [place] - 09/15/19 [facility] [address] [facility], [address] [place] [address]- [facility] Attending Physician: Jacinda Guerra MD Referring Physician: [...] 06/21/93 Given 1Result Comment: Patient tolerated well [id number] Note: MENCEVAX Medications ferrous sulfate 324 mg (65 mg elemental iron) oral delayed release tablet 1 tablet = 324 mg, By Mouth, Daily, # 30 tablet, 6 Refills, Maintenance, 06/14/19 14:22:00 EST, [facility]/pharmacy #[id number], 170.18, cm, 06/14/19 14:16:00 EST, Height, 80.8, kg, 06/22/18 13:32:00 EST, Dry Weight Start Date: 06/14/19 Status: Orderedibuprofen 800 mg oral tablet 800 mg, 1, tablet, By Mouth, 3 times a day, # 90 tablet, Refills 0, Tot. Refills 0, Acute 09/21/19 0:00:00 EDT, 08/21/19 9:54:00 EDT, Route to Pharmacy Electronically, [facility]/pharmacy #[id number], 173, cm, 08/21/19 0:20:00 EDT, Height, 89.9, kg, 08/18/19 18:10... Start Date: 08/21/19 Stop Date: 09/21/19 Status: OrderedPrenatal Multivitamins with Vitamin B Complex, Vitamin C, Minerals and L-Methylfolate oral capsule 1 capsule, By Mouth, Daily, # 60 capsule, 3 Refills, Maintenance, 08/21/19 5:58:00 EDT, Capsule, [facility]/pharmacy #[id number], 1 capsule By Mouth Daily, 173, cm, 08/21/19 0:20:00 EDT, Height, 89.9, kg, 08/18/19 18:10:00 EDT, Dry Weight Start Date: 08/21/19 Status: Orderedpropranolol 10 mg oral tablet 10 mg, 1, tablet, By Mouth, 2 times a day, # 60 tablet, Refills 2, Tot. Refills 2, Maintenance, 08/21/19 5:58:00 EDT, Route to Pharmacy Electronically, [facility]/pharmacy #[id number], 173, cm, 08/21/19 0:20:00 EDT, Height, 89.9, kg, 08/18/19 18:10:00 EDT, Dry Weight Start Date: 08/21/19 Status: OrderedTylenol 325 mg oral capsule 2 capsule = 650 mg, By Mouth, Every 4 hours, PRN as needed for pain, # 20 capsule, 0 Refills, Acute 09/21/19 0:00:00 EDT, 08/21/19 9:54:00 EDT, Capsule, [facility]/pharmacy #[id number], 173, cm, 08/21/19 0:20:00 [...]
--- OUTSIDE RECORDS SUMMARY | 2022-02-20 07:00 | XMS_ITS | Continuity of Care Document ---
:1990 Author Organization [facility] Address [address] [place] [address]- Care Team Providers Name Role Phone Victor Hugo Florez MD Primary Care Physician [place] [facility] [place] Date(s): 06/02/19 - 06/02/[address] [address]- [facility] Discharge Disposition: A-D/C Home Attending Physician: Sravanthi Srivastava MD Admitting Physician: Sravanthi Srivastava MD Referring Physician: Sravanthi Srivastava MD Allergies, Adverse Reactions, Alerts Substance Reaction [...] 06/21/93 Given 1Result Comment: Patient tolerated well [id number] Note: MENCEVAX Medications Colace sodium 100 mg oral capsule 100 mg, 1, capsule, By Mouth, 2 times a day, PRN, # 60 capsule, Refills 3, Tot. Refills 3, Maintenance, for constipation, 03/22/19 14:04:07 EST, Route to Pharmacy Electronically, [id number], [facility]/pharmacy #[id number] Start Date: 03/22/19 Status: Orderedmagnesium oxide [...] outbreak in may 2018, take acyclovir as [id number]/S on 12/31 at [facility] Most recent to oldest [Reference Range]: 1 Weight 86.1 kg (06/02/19 2:24 PM) Pulse Rate [55-90 bpm] 81 bpm (06/02/19 2:43 PM) Blood Pressure [90-138/55-84 mm Hg] 118/65 mm Hg (06/02/19 2:43 PM) Respiratory Rate [16-30 br/min] 18 br/min (06/02/19 2:43 PM) Temperature [96.8-100.4 DegF] 98.4 DegF (06/02/19 2:43 PM) Blood pressure sites Arm, right (06/02/19 2:43 PM) Temperature Route Oral (06/02/19 2:43 PM) Weight Obtained Via Standing scale (06/02/19 2:24 PM) Social History Social History Type Response Smoking Status Never (less than 100 in life time); Tobacco user in household: No entered on: 01/11/19 Sex
--- OUTSIDE RECORDS SUMMARY | 2022-02-20 07:00 | XMS_ITS | Continuity of Care Document ---
:1990 Author Organization [facility] Address [address] [place] [address]- Care Team Providers Name Role Phone Mamie DONIS, Ju Johnson Primary Care Physician Encounter [facility] Date(s): 11/14/21 - 12/14/21 [facility] [address] [place] [address]- Allergies, Adverse Reactions, Alerts Substance Reaction Severity Status Zofran heart palpitations Active Immunizations Given and Recorded Vaccine Date Status Refusal Reason Varicella Virus Vaccine 10/01/21 Recorded Varicella Virus Vaccine 08/31/21 Recorded Varicella Virus Vaccine 05/09/09 Given SARS-CoV-2 mRNA ([id number]-hnga-[id number]) vax 08/28/21 Recorde d SARS-CoV-2 (COVID-19) mRNA [...] 06/21/93 Given 1Result Comment: Patient tolerated well [id number] Note: MENCEVAX Medications Plan B One-Step 1.5 mg oral tablet 1.5 mg, 1, tablet, By Mouth, Once, # 1 tablet, Refills 0, Tot. Refills 0, Soft Stop, 11/14/21 15:26:00 EDT, Route to Pharmacy Electronically, [facility]/pharmacy #[id number], Partial fill upon patient request if the [...]
--- OUTSIDE RECORDS SUMMARY | 2022-02-20 07:00 | XMS_ITS | Continuity of Care Document ---
:1990 Author Organization [facility] p Address [address] [place] [address], [address] [place] [address]- Care Team Providers Name Role Phone Victor Hugo Florez MD Primary Care Physician Encounter [facility] [place] Date(s): 07/14/19 - 08/13/19 [facility] [employer] [facility] [employer] [facility] [address] [place] [address], [address] [place] [address]- Attending Physician: Jacinda Guerra MD Admitting Physician: Jacinda Guerra MD Referring Physician: Jacinda Guerra MD Allergies, [...] 06/21/93 Given 1Result Comment: Patient tolerated well [id number] Note: MENCEVAX Medications ferrous sulfate 324 mg [...] Maintenance, FAX to [facility] [phone], 06/14/19 14:38:00 EST, Phone number for [facility] ; [address] [place] [address] ; [facility] Start Date: 06/14/19 Status: OrderedPrenatal Cradle [...] outbreak in may 2018, take acyclovir as [id number] on 12/31 at Social History Social History Type Response Smoking Status Never (less than 100 in life time); Tobacco user in household: No entered on: 01/11/19 Sex
--- OUTSIDE RECORDS SUMMARY | 2022-02-20 07:00 | XMS_ITS | Continuity of Care Document ---
:1990 Author Organization [facility] Address [address] [place] [address]- Care Team Providers Name Role Phone Victor Hugo Florez MD Primary Care Physician [facility]counter [facility] Date(s): 11/11/19 - 12/11/19 [facility] [address] [place] [address]- [facility] Attending Physician: Mervin Bland Admitting [...] 06/21/93 Given 1Result Comment: Patient tolerated well [id number] Note: MENCEVAX Medications ferrous sulfate 324 mg [...] 0 Refills, Soft Stop, 11/18/19 15:41:00 EDT, [facility], 173, cm, 11/11/19 7:59:00 [...]
--- OUTSIDE RECORDS SUMMARY | 2022-02-20 07:00 | XMS_ITS | Continuity of Care Document ---
:1990 Author Organization [facility] Address [address] [place] [address], [address] [place] [address]- Care Team Providers Name Role Phone Ju Hatch MD Primary Care Physician Encounter [facility] [place] Date(s): 04/23/21 - 06/30/21 [facility] [address] [place] [address], [address] [place] [address] Attending Physician: Not on Staff, Attending MD [...] 06/21/93 Given 1Result Comment: Patient tolerated well [id number] Note: MENCEVAX Medications Nexplanon 68 mg subcutaneous implant 1 each = 68 mg, Subcutaneous Infusion, Once, Pharmacy Supplied and inserted by Katia Oquendo CNM on 04/20/2020 lot#[id number] exp#06/05/2022 [facility]#[id number], # 1 each, 0 Refills, Soft Stop, 03/21/20 9:10:00 EST, [facility], 173, cm, 1... Start [...]
--- OUTSIDE RECORDS SUMMARY | 2022-02-20 07:00 | XMS_ITS | Continuity of Care Document ---
:1990 Author Organization [facility] Address [address] [place] [address], [address] [place] [address]- Care Team Providers Name Role Phone Victor Hugo Florez MD Primary Care Physician [place] [facility] [place](s): 04/20/20 - 05/20/20 [facility] [address] [facility], [address] [place] [address]- Attending Physician: Mervin Bland Admitting Physician: eMrvin Bland Referring Physician: AdmtrMervin Allergies, Adverse Reactions, [...] 06/21/93 Given 1Result Comment: Patient tolerated well [id number] Note: MENCEVAX Medications Scarlet 30 mg oral tablet 1 tablet = 30 mg, By Mouth, Once, # 1 tablet, 0 Refills, Soft Stop, 04/20/20 16:48:00 EST, Tablet, [facility]/pharmacy #[id number], Partial fill upon patient request if [...] Refills, Maintenance, 03/30/20 18:10:00 EST, ER Capsule, [facility]/pharmacy #[id number], 173, cm, 03/09/20 15:36:00 EDT, Height, 89.9, kg, 08/18/19 18:10:00 EDT, Dry Weight Start Date: 03/30/20 Status: OrderedNexplanon 68 mg subcutaneous implant 1 each = 68 mg, Subcutaneous Infusion, Once, Pharmacy Supplied and inserted by Katia Oquendo [facility] on 04/20/2020 lot#[id number] exp#06/05/2022 [facility]#[id number], # 1 each, 0 Refills, Soft Stop, 03/21/20 9:10:00 EST, [facility], 173, cm, 1... Start Date: 03/21/20 Status: OrderedPrenatal Multivitamins with Vitamin B Complex, Vitamin C, Minerals and L-Methylfolate oral capsule 1 capsule, By Mouth, Daily, # 60 capsule, 3 Refills, Maintenance, 08/21/19 5:58:00 EDT, Capsule, [facility]/pharmacy #[id number], 1 capsule By Mouth Daily, 173, cm, 08/21/19 0:20:00 EDT, Height, 89.9, kg, 08/18/19 18:10:00 EDT, Dry Weight Start Date: 08/21/19 Status: Orderedpropranolol 10 mg oral tablet 10 mg, 1, tablet, By Mouth, 2 times a day, # 60 tablet, Refills 2, Tot. Refills 2, Maintenance, 08/21/19 5:58:00 EDT, Route to Pharmacy Electronically, [facility]/pharmacy #[id number], 173, cm, 08/21/19 0:20:00 EDT, Height, [...]
--- NOTE | 2022-02-20 07:57 | PC.NURSE ---
patient a/ox4 . Went over discharge instructions as ordered by provider . patient to follow up with primary care . no questions at this time .
== END 2022-02-20 07:58 | disposition home or self-care (01) ==
PROVIDERS: Emergency Provider Internal Medicine
DX: K29.70 Gastritis, unspecified, without bleeding (principal); R10.13 Epigastric pain; Z79.899 Other long term (current) drug therapy
CPT/HCPCS: 36415; 80053; 81003; 82248; 83690; 85027; 99283

== ENCOUNTER 2022-06-24 07:00 | Emergency (ER) | payer OTHER, SELFPAY ==
--- NOTE | ~2022-06-24 | XR_ITS ---
EXAMINATION: XR HIP, RIGHT CLINICAL INFORMATION: Right back/hip pain radiating down the leg. COMPARISON: None TECHNIQUE: Two views of the right hip. FINDINGS: Bones and soft tissues appear unremarkable. No fracture appreciated. Alignment is anatomic. Hip joint space is maintained. XR/XR hip RT w PEL1V IMPRESSION: Normal plain film examination of the right hip.
--- NOTE | ~2022-06-24 | XR_ITS ---
EXAMINATION: XR LUMBOSACRAL SPINE CLINICAL INFORMATION: Right back/hip pain radiating down the leg. COMPARISON: None TECHNIQUE: Three views of the lumbosacral spine. XR/XR lumbar spine 2-3V FINDINGS/IMPRESSION: The study is limited by overlying external material. Mild lower lumbar levocurvature. No spondylolysis or spondylolisthesis identified. Vertebral body heights appear maintained. No lytic or sclerotic bony lesion is identified. The paraspinal soft tissues appear unremarkable. Moderate stool is seen throughout the colon and rectal vault.
[2022-06-24 07:16] VITALS: BP 128/69; PULSE 77; RESP 18; TEMP 35.5; O2SAT 100; BMI 28.1
--- OUTSIDE RECORDS SUMMARY | 2022-06-24 08:46 | XMS_ITS | Continuity of Care Document ---
:1990 Author Organization [facility] Address [address] [place] [address]- Care Team Providers Name Role Phone Ju Hatch MD Primary Care Physician [place] [facility] [place] 03/28/22 [facility] [address] [place], [place] [address] Attending Physician: Admtr, Mervin Admitting Physician: Admtr, Ar8 Referring Physician: Admtr, Ar8 Allergies, Adverse Reactions, Alerts Substance Reaction Severity Status Zofran heart palpitations Active Immunizations Given and Recorded Vaccine Date Status Refusal Reason Varicella Virus Vaccine 10/01/21 Recorded Varicella Virus Vaccine 08/31/21 Recorded Varicella Virus Vaccine 05/09/09 Given SARS-CoV-2 mRNA (kyenkxy-ettp-gktxt) vax 08/28/21 Recorde d SARS-CoV-2 (COVID-19) mRNA BNT-162b2 vac 02/23/21 Recorde d SARS-CoV-2 (COVID-19) mRNA BNT-162b2 vac 02/02/21 Recorde d tetanus/diphtheria/pertussis, acel(Tdap)1 05/31/19 Given tetanus/diphtheria/pertussis, acel(Tdap) 07/11/10 Given influenza virus vaccine, inactivated 02/22/19 Given influenza virus vaccine, inactivated 03/10/16 Recorded influenza virus vaccine, inactivated 01/30/11 Given influenza [...] 06/21/93 Given 1Result Comment: Patient tolerated well [id number] Note: MENCEVAX Medications Plan B One-Step 1.5 mg oral tablet 1.5 mg, 1, tablet, By Mouth, Once, # 1 tablet, Refills 0, Tot. Refills 0, Soft Stop, 11/14/21 15:26:00 EDT, Route to Pharmacy Electronically, [facility]/pharmacy #[id number], Partial fill upon patient request if the prescription is for a schedule II opioid drug.,... Start Date: 11/14/21 Status: OrderedvalACYclovir 500 mg oral tablet 1, tablet, By Mouth, Daily, # 30 tablet, Refills 0, Tot. Refills 0, Maintenance, 02/27/22 22:14:00 EDT, Route to Pharmacy Electronically, [facility]/pharmacy #[id number], 170, cm, 11/22/21 11:47:00 EDT, Height, 78.2, kg, 11/14/21 16:02:00 EDT, Dry Weight Start Date: 02/27/22 Status: OrderedXulane 150 mcg-35 mcg/24 hr transdermal film, extended release 1 patch, Topically, Every week, apply a new patch weekly for 3 weeks, remove for 1 week, then repeatcycle, # 9 each, 4 Refills, Maintenance, 12/19/21 16:13:00 EDT, [facility]/pharmacy #[id number], Partial fill upon [...] on: 01/11/19 Sex Patient Care team information Care Team PersonnelName: Gabriela Joyner RN Position: S RN Member Role: Primary Care Nurse Name: Laila Tamayo RN Position: [facility] RN Member Role: Primary Care Nurse Name: Ju Hatch MD Position: [facility] Primary Care Physician Member Role: PCP Address: Address: [address] [place] [address] [facility] [address] Name: Heriberto Solis RN Position: [facility] RN Member Role: Primary Care Nurse Care Team Related PersonsName: KRISSY FISHMAN Address: home [address] [place], [place] Name: ALBANIA FISHMAN Address: Address: home [address] [place], [place] Name: NELDA LINDER Address: home [address] [place], [place]
--- OUTSIDE RECORDS SUMMARY | 2022-06-24 08:46 | XMS_ITS | Continuity of Care Document ---
:1990 Author Organization [facility] Address [address] [place] [address]- Care Team Providers Name Role Phone Mamie DONIS, Ju Johnson Primary Care Physician Encounter [facility] Date(s): 05/03/22 - 06/02/22 [facility] [address] [place] [address]- Allergies, Adverse Reactions, Alerts Substance Reaction Severity Status Zofran heart palpitations Active Immunizations Given and Recorded Vaccine Date Status Refusal Reason Varicella Virus Vaccine 10/01/21 Recorded Varicella Virus Vaccine 08/31/21 Recorded Varicella Virus Vaccine 05/09/09 Given SARS-CoV-2 mRNA (xppzopz-grqs-fvpna) vax 08/28/21 Recorde d SARS-CoV-2 (COVID-19) mRNA [...] 06/21/93 Given 1Result Comment: Patient tolerated well [id number] Note: MENCEVAX Medications Plan B One-Step 1.5 mg oral tablet 1.5 mg, 1, tablet, By Mouth, Once, # 1 tablet, Refills 0, Tot. Refills 0, Soft Stop, 11/14/21 15:26:00 EDT, Route to Pharmacy Electronically, [facility]/pharmacy #[id number], Partial fill upon patient request if the prescription is for a schedule II opioid drug.,... Start Date: 11/14/21 Status: Orderedpromethazine 12.5 mg rectal suppository 1 supp = 12.5 mg, Rectally, Every 4 hours, PRN for nausea/vomiting, # 12 supp, 0 Refills, Maintenance, 05/23/22 12:40:00 EST, Suppository, [facility]/pharmacy #[id number], Partial fill upon patient request if the prescription is for a schedule II opioid drug., 170... Start Date: 05/23/22 Status: OrderedvalACYclovir 500 mg oral tablet 1, tablet, By Mouth, Daily, # 30 tablet, Refills 0, Maintenance, 04/03/22 14:56:00 EST, Route to Pharmacy Electronically, [id number], 170, cm, 11/22/21 11:47:00 EDT, Height, 78.2, kg, 11/14/21 16:02:00 EDT, Dry Weight Start Date: 04/03/22 Status: OrderedXulane 150 mcg-35 mcg/24 hr transdermal [...] Condition Confirmation Course Effective Dates Status Health I nformant Status Anterior vaginal wall Confirmed Active prolapse Diastasis recti Confirmed Active Gastroenteritis Confirmed Active Genital HSV1 Confirmed Active Paroxysmal [...] Care Nurse Name: Laila Tamayo RN Position: S RN Member Role: Primary Care Nurse Name: Ju Hatch MD Position: [facility] Primary Care Physician Member Role: PCP Address: Address: [address] [place] [address] Adult [facility] Pediatric [address] Name: Heriberto Solis RN Position: S RN Member Role: Primary Care Nurse Care Team Related PersonsName: KRISSY FISHMAN Address: [address] [place] [address] Name: ALBANIA FISHMAN Address: Address: [address] [place] [address] Name: NELDA LINDER Address: [address] [place] [address]
--- OUTSIDE RECORDS SUMMARY | 2022-06-24 08:46 | XMS_ITS | Continuity of Care Document ---
:1990 Author Organization [facility] Address [address] [place] [address]- Care Team Providers Name Role Phone Ju Hatch MD Primary Care Physician Encounter [facility] [place] Date(s): 02/22/22 - 03/28/22 [facility] [address] [place], [place] [address] Attending Physician: Ju Hatch MD Allergies, Adverse Reactions, Alerts Substance Reaction Severity Status Zofran heart palpitations Active Immunizations Given and Recorded Vaccine Date Status Refusal Reason Varicella Virus Vaccine 10/01/21 Recorded Varicella Virus Vaccine 08/31/21 Recorded Varicella Virus Vaccine 05/09/09 Given SARS-CoV-2 mRNA (qxsanas-pqmk-gkmsz) vax 08/28/21 Recorde d SARS-CoV-2 (COVID-19) mRNA [...] 06/21/93 Given 1Result Comment: Patient tolerated well [id number] Note: MENCEVAX Medications Plan B One-Step 1.5 mg oral tablet 1.5 mg, 1, tablet, By Mouth, Once, # 1 tablet, Refills 0, Tot. Refills 0, Soft Stop, 11/14/21 15:26:00 EDT, Route to Pharmacy Electronically, [facility]/pharmacy #[id number], Partial fill upon patient request if the prescription is for a schedule II opioid drug.,... Start Date: 11/14/21 Status: OrderedvalACYclovir 500 mg oral tablet 1, tablet, By Mouth, Daily, # 30 tablet, Refills 0, Tot. Refills 0, Maintenance, 02/27/22 22:14:00 EDT, Route to Pharmacy Electronically, [facility]/pharmacy #[id number], 170, cm, 11/22/21 11:47:00 EDT, Height, [...] Care Nurse Name: Laila Tamayo RN Position: [facility] RN Member Role: Primary Care Nurse Name: Ju Hatch MD Position: [facility] Primary Care Physician Member Role: PCP Address: Address: [address] [place] [address] Adult & Pediatric [place], [place] [address] Name: Heriberto Solis RN Position: [facility] RN Member Role: Primary Care Nurse Care Team Related PersonsName: KRISSY FISHMAN Address: [address] [place] [address] Name: ALBANIA FISHMAN Address: Address: [address] [place] [address] Name: NELDA LINDER Address: [address] [place] [address]
--- OUTSIDE RECORDS SUMMARY | 2022-06-24 08:47 | XMS_ITS | Continuity of Care Document ---
:1990 Author Organization [facility] Address [address] [place] [address]- Care Team Providers Name Role Phone Mamie DONIS, Ju Johnson Primary Care Physician [place] [facility] [place] 02/22/22 - 03/24/22 [facility] [address] [place] [address]- Attending Physician: Mervin Bland Admitting Physician: Mervin Bland Referring Physician: AdmtrMervin Allergies, Adverse Reactions, Alerts Substance Reaction Severity Status Zofran heart palpitations Active Immunizations Given and Recorded Vaccine Date Status Refusal Reason Varicella Virus Vaccine 10/01/21 Recorded Varicella Virus Vaccine 08/31/21 Recorded Varicella Virus Vaccine 05/09/09 Given SARS-CoV-2 mRNA (jvjmwon-ykuw-nunku) vax 08/28/21 Recorde d SARS-CoV-2 (COVID-19) mRNA [...] 06/21/93 Given 1Result Comment: Patient tolerated well [id number] Note: MENCEVAX Medications Plan B One-Step 1.5 mg oral tablet 1.5 mg, 1, tablet, By Mouth, Once, # 1 tablet, Refills 0, Tot. Refills 0, Soft Stop, 11/14/21 15:26:00 EDT, Route to Pharmacy Electronically, [facility]/pharmacy #[id number], Partial fill upon patient request if the prescription is for a schedule II opioid drug.,... Start Date: 11/14/21 Status: OrderedvalACYclovir 500 mg oral tablet 1, tablet, By Mouth, Daily, # 30 tablet, Refills 0, Tot. Refills 0, Maintenance, 02/27/22 22:14:00 EDT, Route to Pharmacy Electronically, [facility]/pharmacy #[id number], 170, cm, 11/22/21 11:47:00 EDT, Height, 78.2, kg, 11/14/21 16:02:00 EDT, Dry Weight Start Date: 02/27/22 Status: OrderedXulane 150 mcg-35 mcg/24 hr transdermal film, extended release 1 patch, Topically, Every week, apply a new patch weekly for 3 weeks, remove for 1 week, then repeatcycle, # 9 each, 4 Refills, Maintenance, 12/19/21 16:13:00 EDT, [facility]/pharmacy #[id number], Partial fill upon patient [...] Care team information PersonnelName: Mamie DONIS, Ju S Address: Address: [address] [place] [address] Adult & Pediatric Med [place], [place] [address]
--- OUTSIDE RECORDS SUMMARY | 2022-06-24 08:47 | XMS_ITS | Continuity of Care Document ---
:1990 Author Organization [facility] Address [address] [place] [address], [address] [place] [address]- Care Team Providers Name Role Phone Ju Hatch MD Primary Care Physician [place] [facility] [place](s): 02/06/22 - 03/08/22 [facility] [address] [place] [address], [address] [place] [id number] Allergies, Adverse Reactions, Alerts Substance Reaction Severity Status Zofran heart palpitations Active Immunizations Given and Recorded Vaccine Date Status Refusal Reason Varicella Virus Vaccine 10/01/21 Recorded Varicella Virus Vaccine 08/31/21 Recorded Varicella Virus Vaccine 05/09/09 Given SARS-CoV-2 mRNA (uahkpdc-hqbh-negnl) vax 08/28/21 Recorde d SARS-CoV-2 (COVID-19) mRNA [...] 06/21/93 Given 1Result Comment: Patient tolerated well [id number] Note: MENCEVAX Medications Plan B One-Step 1.5 [...] 02/27/22 22:14:00 EDT, Route to Pharmacy Electronically, [facility]/pharmacy #[id number], 170, cm, 11/22/21 11:47:00 [...] PersonnelName: Mamie DONIS, Ju Johnson Address: Address: [address] [place] [address] Adult & Pediatric [place], [place] [address]
--- OUTSIDE RECORDS SUMMARY | 2022-06-24 08:47 | XMS_ITS | Continuity of Care Document ---
:1990 Author Organization [facility] p Address [address] [place] [address], [address] [place] [address]- Care Team Providers Name Role Phone Mamie DONIS, Ju Johnson Primary Care Physician [place] [facility] [place] [facility] [address] [facility], [address] [place] [address]- Attending Physician: Mervin Bland Admitting Physician: Mervin Bland Referring Physician: AdmtrMervin Allergies, Adverse Reactions, Alerts Substance Reaction Severity Status Zofran heart palpitations Active Immunizations Given and Recorded Vaccine Date Status Refusal Reason Varicella Virus Vaccine 10/01/21 Recorded Varicella Virus Vaccine 08/31/21 Recorded Varicella Virus Vaccine 05/09/09 Given SARS-CoV-2 mRNA ([id number]) vax 08/28/21 Recorde d SARS-CoV-2 (COVID-19) mRNA [...] 06/21/93 Given 1Result Comment: Patient tolerated well [id number] Note: MENCEVAX Medications Plan B One-Step 1.5 mg oral tablet 1.5 mg, 1, tablet, By Mouth, Once, # 1 tablet, Refills 0, Tot. Refills 0, Soft Stop, 11/14/21 15:26:00 EDT, Route to Pharmacy Electronically, [facility]/pharmacy #[id number], Partial fill upon patient request if the prescription is for a schedule II opioid drug.,... Start Date: 11/14/21 Status: OrderedvalACYclovir 500 mg oral tablet 1, tablet, By Mouth, Daily, # 30 tablet, Refills 0, Maintenance, 04/03/22 14:56:00 EST, Route to Pharmacy Electronically, [facility] STORE [id number], 170, cm, 11/22/21 11:47:00 EDT, Height, 78.2, kg, 11/14/21 16:02:00 EDT, Dry Weight Start Date: 04/03/22 Status: OrderedXulane 150 mcg-35 mcg/24 hr transdermal film, extended release 1 patch, Topically, Every week, apply a new patch weekly for 3 weeks, remove for 1 week, then repeatcycle, # 9 each, 4 Refills, Maintenance, 12/19/21 16:13:00 EDT, [facility]/pharmacy #[id number], Partial fill upon [...] Care Team PersonnelName: Gabriela Joyner RN Position: [facility] RN Member Role: Primary Care Nurse Name: Laila Tamayo RN Position: [facility] RN Member Role: Primary Care Nurse Name: Ju Hatch MD Position: [facility] Primary Care Physician Member Role: PCP Address: Address: [address] [place] [address] Adult & [place] [address]- Name: Heriberto Solis RN Position: [facility] RN Member Role: Primary Care Nurse Care Team Related PersonsName: KRISSY FISHMAN Address: home [address] [place] [address] Name: ALBANIA FISHMAN Address: Address: home [address] [place] [address] Name: NELDA LINDER Address: [address] [place] [address]
--- OUTSIDE RECORDS SUMMARY | 2022-06-24 08:47 | XMS_ITS | Continuity of Care Document ---
:1990 Author Organization [facility] Address [address] [place] [address]- Care Team Providers Name Role Phone Mamie DONIS, Ju Johnson Primary Care Physician Encounter [facility] [place] Date(s): 05/27/22 - 06/03/22 [facility] [address] [place] [address]- Encounter Diagnosis Gastroenteritis (Discharge Diagnosis) - 05/27/22 Attending Physician: Alem Cifuentes MD, V Referring Physician: Ju Hatch MD Allergies, Adverse Reactions, Alerts Substance Reaction Severity Status Zofran heart palpitations Active Immunizations Given and Recorded Vaccine Date Status Refusal Reason Varicella Virus Vaccine 10/01/21 Recorded Varicella Virus Vaccine 08/31/21 Recorded Varicella Virus Vaccine 05/09/09 Given SARS-CoV-2 mRNA ([id number]-[id number]) vax 08/28/21 Recorde d SARS-CoV-2 (COVID-19) mRNA [...] 06/21/93 Given 1Result Comment: Patient tolerated well [id number] Note: MENCEVAX Medications Plan B One-Step 1.5 mg oral tablet 1.5 mg, 1, tablet, By Mouth, Once, # 1 tablet, Refills 0, Tot. Refills 0, Soft Stop, 11/14/21 15:26:00 EDT, Route to Pharmacy Electronically, [facility]/pharmacy #[id number], Partial fill upon patient request if the prescription is for a schedule II opioid drug.,... Start Date: 11/14/21 Status: Orderedpromethazine 12.5 mg rectal suppository 1 supp = 12.5 mg, Rectally, Every 4 hours, PRN for nausea/vomiting, # 12 supp, 0 Refills, Maintenance, 05/23/22 12:40:00 EST, Suppository, [facility]/pharmacy #[id number], Partial fill upon patient request if the prescription is for a schedule II opioid drug., 170... Start Date: 05/23/22 Status: OrderedvalACYclovir 500 mg oral tablet 1, tablet, By Mouth, Daily, # 30 tablet, Refills 0, Maintenance, 04/03/22 14:56:00 EST, Route to Pharmacy Electronically, [facility] STORE [id number], 170, cm, 11/22/21 11:47:00 EDT, Height, 78.2, kg, 11/14/21 16:02:00 EDT, Dry Weight Start Date: 04/03/22 Status: OrderedXulane 150 mcg-35 mcg/24 hr transdermal film, extended release 1 patch, Topically, Every week, apply a new patch weekly for 3 weeks, remove for 1 week, then repeatcycle, # 9 each, 4 Refills, Maintenance, 12/19/21 16:13:00 EDT, [facility]/pharmacy #[id number], Partial fill upon patient request if the [...] Dates Health Status Clinical In formant Service Gastroenteritis Discharge 05/27/22 Diagnosis Social History Social History Type Response Smoking Status Never (less than 100 in life time); Tobacco user in household: No entered on: 01/11/19 Sex Patient Care team information Care Team PersonnelName: Gabriela Joyner RN Position: [facility] RN Member Role: Primary Care Nurse Name: Laila Tamayo RN Position: [facility] RN Member Role: Primary Care Nurse Name: Mamie DONIS, Ju Johnson Position: [facility] Primary Care Physician Member Role: PCP Address: Address: [address] [place] [address] Adult & Pediatric [address] Name: Heriberto Solis RN Position: [facility] RN Member Role: Primary Care Nurse Care Team Related PersonsName: KRISSY FISHMAN Address: [address] [place] [address] Name: ALBANIA FISHMAN Address: Address: home [address] [place], [place] Name: NELDA LINDER Address: home [address] [place], [place]
--- OUTSIDE RECORDS SUMMARY | 2022-06-24 08:47 | XMS_ITS | Continuity of Care Document ---
:1990 Author Organization [facility] p Address [address] [place] [address], [address] [place] [address]- Care Team Providers Name Role Phone Mamie DONIS, Ju Johnson Primary Care Physician [place] [facility] [place] Date(s): 02/15/22 - 05/17/22 [facility] [address] [place] [address], [address] [place] [address]- Attending Physician: Shilpa Lucero MD Admitting Physician: Shilpa Lucero MD Referring Physician: Ju Hatch MD Allergies, Adverse Reactions, Alerts Substance Reaction Severity Status Zofran heart palpitations Active Immunizations Given and Recorded Vaccine Date Status Refusal Reason Varicella Virus Vaccine 10/01/21 Recorded Varicella Virus Vaccine 08/31/21 Recorded Varicella Virus Vaccine 05/09/09 Given SARS-CoV-2 mRNA ([id number]-kkbl-zzuoo) vax 08/28/21 Recorde d SARS-CoV-2 (COVID-19) mRNA [...] 06/21/93 Given 1Result Comment: Patient tolerated well [id number] Note: MENCEVAX Medications Plan B One-Step 1.5 mg oral tablet 1.5 mg, 1, tablet, By Mouth, Once, # 1 tablet, Refills 0, Tot. Refills 0, Soft Stop, 11/14/21 15:26:00 EDT, Route to Pharmacy Electronically, [facility]/pharmacy #[id number], Partial fill upon patient request if the prescription is for a schedule II opioid drug.,... Start Date: 11/14/21 Status: OrderedvalACYclovir 500 mg oral tablet 1, tablet, By Mouth, Daily, # 30 tablet, Refills 0, Maintenance, 04/03/22 14:56:00 EST, Route to Pharmacy Electronically, [facility] STORE [id number], 170, cm, 11/22/21 11:47:00 EDT, Height, 78.2, kg, 11/14/21 16:02:00 EDT, Dry Weight Start Date: 04/03/22 Status: OrderedXulane 150 mcg-35 mcg/24 hr transdermal film, extended release 1 patch, Topically, Every week, apply a new patch weekly for 3 weeks, remove for 1 week, then repeatcycle, # 9 each, 4 Refills, Maintenance, 12/19/21 16:13:00 EDT, [facility]/pharmacy #[id number], Partial fill upon patient request [...] Care Team PersonnelName: Gabriela Joyner RN Position: [facility] RN Member Role: Primary Care Nurse Name: Laila Tamayo RN Position: [facility] RN Member Role: Primary Care Nurse Name: Mamie DONIS, Ju Johnson Position: [facility] Primary Care Physician Member Role: PCP Address: Address: [address] [place] [address] Adult & Pediatric [address] Name: Heriberto Solis RN Position: [facility] RN Member Role: Primary Care Nurse Care Team Related PersonsName: KRISSY FISHMAN Address: [address] [place] [address] Name: ALBANIA FISHMAN Address: Address: [address] [place] [address] Name: NELDA LINDER Address: home [address] [place], [place]
--- OUTSIDE RECORDS SUMMARY | 2022-06-24 08:47 | XMS_ITS | Continuity of Care Document ---
:[address] [facility] Address [address] [place] [address]- Care Team Providers Name Role Phone Ju Hatch MD Primary Care Physician [place] [facility] [id number] Date(s): 05/23/22 - 05/30/22 [facility] [address] [place] [address]- Encounter Diagnosis Vomiting (Discharge Diagnosis) - 05/23/22 Attending Physician: Victor Hugo Florez MD Allergies, Adverse Reactions, Alerts Substance Reaction Severity Status Zofran heart palpitations Active Immunizations Given and Recorded Vaccine Date Status Refusal Reason Varicella Virus Vaccine 10/01/21 Recorded Varicella Virus Vaccine 08/31/21 Recorded Varicella Virus Vaccine 05/09/09 Given SARS-CoV-2 mRNA ([id number]-[id number]) vax 08/28/21 Recorde d SARS-CoV-2 (COVID-19) mRNA [...] (old term) 05/09/09 Given Measles/Mumps/Rubella Virus Vaccine 1/20/10 Given Measles/Mumps/Rubella Virus Vaccine 05/09/09 Given Meningococcal [...] 06/21/93 Given 1Result Comment: Patient tolerated well [id number] Note: MENCEVAX Medications Plan B One-Step 1.5 mg oral tablet 1.5 mg, 1, tablet, By Mouth, Once, # 1 tablet, Refills 0, Tot. Refills 0, Soft Stop, 11/14/21 15:26:00 EDT, Route to Pharmacy Electronically, [facility]/pharmacy #[id number], Partial fill upon patient request if the prescription is for a schedule II opioid drug.,... Start Date: 11/14/21 Status: Orderedpromethazine 12.5 mg rectal suppository 1 supp = 12.5 mg, Rectally, Every 4 hours, PRN for nausea/vomiting, # 12 supp, 0 Refills, Maintenance, 05/23/22 12:40:00 EST, Suppository, [facility]/pharmacy #[id number], Partial fill upon patient request if the prescription is for a schedule II opioid drug., 170... Start Date: 05/23/22 Status: OrderedvalACYclovir 500 mg oral tablet 1, tablet, By Mouth, Daily, # 30 tablet, Refills 0, Maintenance, 04/03/22 14:56:00 EST, Route to Pharmacy Electronically, [facility] STORE [id number], 170, cm, 11/22/21 11:47:00 EDT, Height, 78.2, kg, 11/14/21 16:02:00 EDT, Dry Weight Start Date: 04/03/22 Status: OrderedXulane 150 mcg-35 mcg/24 hr transdermal film, extended release 1 patch, Topically, Every week, apply a new patch weekly for 3 weeks, remove for 1 week, then repeatcycle, # 9 each, 4 Refills, Maintenance, 12/19/21 16:13:00 EDT, [facility]/pharmacy #[id number], Partial fill upon patient request if the [...] Diagnosis Type Effective Dates Health Status Clinical Serv ice Informant Vomiting Discharge 05/23/22 Diagnosis Social History Social History Type Response Smoking Status Never (less than 100 in life time); Tobacco user in household: No entered on: 01/11/19 Sex Patient Care team information Care Team PersonnelName: Gabriela Joyner RN Position: [facility] RN Member Role: Primary Care Nurse Name: Laila Tamayo RN Position: [facility] RN Member Role: Primary Care Nurse Name: Ju Hatch MD Position: [facility] Primary Care Physician Member Role: PCP Address: Address: [address] [place] [address] Adult & [place] [address]- Name: Heriberto Solis RN Position: [facility] RN Member Role: Primary Care Nurse Care Team Related PersonsName: KRISSY FISHMAN Address: [address] [place] [address] Name: ALBANIA FISHMAN Address: Address: [address] [place] [address] [place] Name: NELDA LINDER Address: [address] [place] [address]
--- NOTE | 2022-06-24 09:25 | ED.BACK ---
HPI - Back Pain/Injury General Chief Complaint: Back Pain/Injury Stated Complaint: Lower back pain/R hip pain Time Seen by Provider: 06/24/22 08:36 Source: patient Mode of arrival: ambulatory Limitations: no limitations History of Present Illness HPI Narrative: 31 year old female pmh SVT with ablation in August 2021 presents to the ED with right hip pain. The patient reports right hip pain began when she was 4 months , her daughter is now 3 years old. Hip pain starts on the right side lower back area and radiates to the front of the right hip. Pain is described as constant dull 3/4 out of 10 with intermittent 10 out of 10 sharp pain. Yesterday evening she reports sitting on the edge of the tub and when getting from the position experience sharp 10 out of 10 right hip pain. She tried taking IBU/Motrin and applying heat but did not help. Prior to last nights episode heat and NSAIDs helped ease the pain. She denies incontinence, paresthesias, and numbness. The patient is able to ambulate. She reports getting up from seated position increases pain. Feels best laying on left side. She reports right sided swollen lymph node, daughter was sick a few days ago. MD elicited complaint: back pain (right hip pain ) Onset (ago): year(s) Timing: constant (constant dull pain with intermittent severity ) and intermittent Severity: severe Pain scale (0-10): 10 Similar Symptoms Previously: Yes Quality: sharp and dull Location: right lower back (right hip ) Radiation: none (lower right back/hip radiates to front ) Exacerbating factors: movement and sitting upright Relieving factors: immobilization and supine (laying on left side ) Work related injury: No Related Data Previous Rx's Medication Instructions Recorded omeprazole 20 mg capsule,delayed 20 mg PO DAILY #30 caps 02/20/22 release cyclobenzaprine 10 mg tablet 10 mg PO Q8H #14 tabs 06/24/22 ibuprofen 800 mg tablet 800 mg PO Q8H PRN pain #14 tabs 06/24/22 Allergies Allergy/AdvReac Type Severity Reaction Status Date / Time ondansetron [From Zofran] Allergy Palpitation Verified 02/20/22 04:27 s Review of Systems Review of Systems: Constitutional : No trauma, No Weight loss, No Fever, No Chills, ENT/Mouth : No Hearing loss, No Ear Pain, No Nasal Congestion, No Sinus Pain, No Hoarseness, No sore throat, No Rhinorrhea, No Swallowing Difficulty Cardiovascular : No Chest Pain, No SOB Respiratory : No Cough, No Dyspnea Gastrointestinal : No Nausea, No Vomiting, No Diarrhea, No abdominal Pain, No Hematochezia, No Melena Genitourinary : No Dysuria, No Urinary Frequency, No Hematuria, No Urinary or Bowel Incontinence/retention Musculoskeletal : + Right lower back pain. + right hip pain No neck pain, No joint stiffness, No joint swelling Skin : No Skin Lesions, No rash or signs of infection Neuro : No Weakness, No radiation, No Numbness, No Paresthesias, No headache, no loss of bowel or bladder incontinence, no saddle anesthesia Denies history of IV drug usage. Yes all other systems are reviewed and are negative [facility] Past Medical History Attestation statement: The following information was validated with the patient. Source: old records reviewed and nursing notes reviewed Social History Social History Advance Directives: Yes Advance Directives Information Provided: Yes Advance Directives on File: No Physical Exam Vital Signs: Vital Signs: Last Vital Signs Temp 96 F L 06/24/22 07:16 Pulse 77 06/24/22 07:16 Resp 18 06/24/22 07:16 BP 128/69 06/24/22 07:16 Pulse Ox 100 06/24/22 07:16 O2 Del Method 06/24/22 07:16 BMI result Body Mass Index 28.1 vital signs have been reviewed as normal and appeared to be correct. Blood pressure normal. Heart rate normal. Respiration rate normal. Temperature normal. Oxygen saturation normal. Appearance: Alert. Oriented X3. No acute distress. Head: Normal external exam. Normocephalic. Atraumatic. No Meyer signs noted. No raccoon eyes noted Eyes: PERRLA. EOMI. Conjunctiva and sclera normal. Eyelids normal. ENT: EAC normal. TM's Normal. Pharynx normal. Uvula midline. Moist mucous membranes. No trismus noted. No drooling noted. No muffled voice noted. Neck: Normal inspection. Neck supple. FROM. No adenopathy. Thyroid Normal. No meningeal signs. No neck mass noted. CVS: Normal heart rate and rhythm. Heart sound normal. No murmurs noted. Pulses normal throughout. Respiratory: No respiratory distress. Painless inspiration. Breath sounds normal. No wheezes/rales/rhonchi noted. Chest nontender. No accessory muscle usage noted or decreased air movement noted. Abdomen: Soft and nontender. Bowel sounds normal in all 4 quadrants. No distention noted. No organomegaly noted. No visible injury noted. Back: Increased right hip pain with hip extension, and hip abduction. 4/5 strength hip extension/flexion, abduction, adduction. Limited range of motion due to pain to lower extremities. Moderate - severe sacral pain with hip flexion against resistance Mild Lumbar pain with hip flexion against resistance. No obvious deformities, or edema. Straight leg raise test positive on right; Straight leg raise test negative on left; Reflexes normal ankle and knee bilaterally; EHL motor strength normal bilaterally. No rashes/lesion/induration/fluctuance or signs infection noted. No CVA tenderness. Skin: Skin warm and dry. Normal skin color. Normal skin turgor. No rashes/lesions/lacerations noted. Extremities: No lower extremity edema. Extremities exhibit normal range of motion. Extremities nontender. Neuro: Oriented X 3. No motor deficit. No sensory deficit. Reflexes normal. Patient has a normal steady gait. Course Course Course Narrative: 31 year old female pmh SVT with ablation in August 2021 presents to the Ed with right hip pain. The patient reports right hip pain began when she was 4 months , her daughter is now 3 years old. Hip pain starts on the right side lower back area and radiates to the front of the right hip. Pain is described as constant dull 3 out of 10 with intermittent 10 out of 10 sharp pain. Yesterday evening she reports sitting on the edge of the tub and when getting from the position experience sharp 10 out of 10 right hip pain. She tried taking IBU/Motrin and applying heat but did not help. Prior to last nights episode heat and NSAIDs helped ease the pain. She denies incontinence, paresthesias, and numbness. The patient is able to ambulate. She reports getting up from seated position increases pain. Feels best laying on left side. She reports right sided swollen lymph node, daughter was sick a few days ago. The patient is a 31 year old female with a 3 + year history of right hip pain. Pain is dull and constant 3 out of 10 pain with intermittent sharp 10 out of 10 pain. Triggers include getting up from seated position. NSAIDs and heat no longer manage pain for the patient. Prior diagnosis of bursitis of left hip while that has since subsided. Considering Piriformis syndrome as a likely cause. Unlikely disk herniation/radiculopathy, spinal stenosis, and ankylosing spondylitis etiology considering no tingling and numbness. Physical exam consisted of Increased right hip pain with hip extension, and hip abduction. 4/5 strength hip extension/flexion, abduction, adduction. Limited range of motion due to pain to lower extremities. Moderate - severe sacral pain with hip flexion against resistance Mild Lumbar pain with hip flexion against resistance. No obvious deformities, or edema. Straight leg raise test positive on right; Straight leg raise test negative on left; Reflexes normal ankle and knee bilaterally; EHL motor strength normal bilaterally. No rashes/lesion/induration/fluctuance or signs infection noted. Plan: Pain Control Imaging Reevaluation(s) Reevaluation #1: Imaging: Lumbar Spin X-ray XR/XR lumbar spine 2-3V FINDINGS/IMPRESSION: ? The study is limited by overlying external material. ? Mild lower lumbar levocurvature. No spondylolysis or spondylolisthesis identified. Vertebral body heights appear maintained. No lytic or sclerotic bony lesion is identified. The paraspinal soft tissues appear unremarkable. ? Moderate stool is seen throughout the colon and rectal vault Time: 11:02 Reevaluation #2: Imaging: Hip/Pelvis X-ray EXAMINATION: XR HIP, RIGHT CLINICAL INFORMATION: Right back/hip pain radiating down the leg. COMPARISON: None TECHNIQUE: Two views of the right hip. FINDINGS: Bones and soft tissues appear unremarkable. No fracture appreciated. Alignment is anatomic. Hip joint space is maintained.? XR/XR hip RT w PEL1V IMPRESSION: Normal plain film examination of the right hip. Time: 11:02 Reevaluation #3: Therefore at this time patient will be discharged with symptomatic treatment instructions return if any new or worsening symptoms to follow up with primary care provider. Patient understands agrees with this plan. Medications Administered Discontinued Medications Generic Name Dose Route Start Last Admin Trade Name Freq PRN Reason Stop Dose Admin Dexamethasone 10 mg 06/24/22 09:16 06/24/22 09:53 Dexamethasone 2 Mg Tablet PO 06/24/22 09:17 10 mg ONCE ONE Administration Ibuprofen 800 mg 06/24/22 10:18 06/24/22 11:00 Ibuprofen 800 Mg Tablet PO 06/24/22 10:19 800 mg ONCE ONE Administration Ketorolac Tromethamine 60 mg 06/24/22 09:15 06/24/22 09:56 Ketorolac Tromethamine 60 Mg/2 Ml Vial IM 06/24/22 09:16 Not Given ONCE ONE Medical Decision Making Lab Data [facility] Lab Attestation statement: I reviewed the patient's lab results. Labs: Lab Results 06/24/22 Range/Units 10:26 Influenza Type A (PCR) NEGATIVE (Negative) Influenza Type B (PCR) NEGATIVE (Negative) RSV RNA Qual (PCR) NEGATIVE (Negative) SARS-CoV-2 RNA (RT-PCR) NEGATIVE (Negative) Independent Interpretation I performed an independent interpretation of an: Plain X-Ray Interpretation: EXAMINATION: XR LUMBOSACRAL SPINE CLINICAL INFORMATION: Right back/hip pain radiating down the leg. COMPARISON: None TECHNIQUE: Three views of the lumbosacral spine. XR/XR lumbar spine 2-3V FINDINGS/IMPRESSION: ? The study is limited by overlying external material. ? Mild lower lumbar levocurvature. No spondylolysis or spondylolisthesis identified. Vertebral body heights appear maintained. No lytic or sclerotic bony lesion is identified. The paraspinal soft tissues appear unremarkable. ? Moderate stool is seen throughout the colon and rectal vault. Radiology Impression Discussion of test interpretation with radiology: I have reviewed the radiologist's reading. Prescription Management I considered prescription management with: Pain Medication Discharge Plan Discharge Clinical Impression: Strain of lumbar region, Strain of right hip Patient Disposition: Home, Self-Care Instructions: Muscle Strain (ED) Prescriptions: New ibuprofen 800 mg tablet 800 mg PO Q8H PRN (Reason: pain) Qty: 14 0RF cyclobenzaprine 10 mg tablet 10 mg PO Q8H Qty: 14 0RF No Action omeprazole 20 mg capsule,delayed release(DR/EC) 20 mg PO DAILY Qty: 30 0RF Referrals: Physician,Unknown J [Primary Care Provider] - 2 days (your pcp) Stand Alone Forms: Work/School Release
[2022-06-24] MEDS: dexAMETHasone 2 MG TABLET 10 MG PO (09:53)
[2022-06-24] MEDS: Ibuprofen 800 MG TABLET PO (11:00)
[2022-06-24 11:46] LABS: Influenza A PCR NEGATIVE (Negative); Influenza B PCR NEGATIVE (Negative); Resp Syncy Virus RNA Qual PCR NEGATIVE (Negative); SARS COV2 PCR INHOUSE NEGATIVE (Negative)
== END 2022-06-24 12:31 | disposition home or self-care (01) ==
PROVIDERS: Physician Assistant Medical; Emergency Provider Emergency Medicine
DX: S39.012A Strain of muscle, fascia and tendon of lower back, initial encounter (principal); S76.011A Strain of muscle, fascia and tendon of right hip, initial encounter; X58.XXXA Exposure to other specified factors, initial encounter; Y93.9 Activity, unspecified; Y92.9 Unspecified place or not applicable; Y99.9 Unspecified external cause status; Z20.822 Contact with and (suspected) exposure to COVID-19; Z20.828 Contact with and (suspected) exposure to other viral communicable diseases
CPT/HCPCS: 0241U; 72100; 73502; 99283; J1885; J8540

== ENCOUNTER 2024-06-08 06:29 | Emergency (ER) | payer OTHER, SELFPAY ==
--- NOTE | ~2024-06-08 | US_ITS ---
EXAMINATION: US ABDOMEN COMPLETE CLINICAL INFORMATION: Epigastric, right upper quadrant and left upper quadrant abdominal pain.. COMPARISON: None available. TECHNIQUE: Real-time imaging of the abdominal viscera. FINDINGS: PANCREAS: Visualized portions are unremarkable. ABDOMINAL AORTA: The proximal, mid, and distal segments are normal in caliber. INFERIOR VENA CAVA: Visualized portions are normal. LIVER: The liver is normal in size. The liver contour is normal. There is diffuse increased liver parenchymal echogenicity, consistent with hepatic steatosis. No focal hepatic lesion. There is no intrahepatic biliary duct dilatation seen. GALLBLADDER: The gallbladder is physiologically distended without evidence of stones, sludge, polyps, wall thickening or pericholecystic fluid. Negative sonographic Hi sign. COMMON BILE DUCT: Normal in caliber measuring 0.2 cm in diameter. RIGHT KIDNEY: No hydronephrosis. No focal parenchymal lesions. The kidney measures 10.4 cm in maximum dimension. There are multiple echogenic foci seen, largest in the lower pole measuring 4 x 3 x 3 mm. These could represent nonobstructing stones. LEFT KIDNEY: No hydronephrosis. No focal parenchymal lesions. The kidney measures 10.6 cm in maximum dimension. Multiple tiny echogenic foci are seen, possible nonobstructing calculi. SPLEEN: The spleen measures 11.0 cm in maximum dimension. FREE FLUID: None. US/US abdomen complete IMPRESSION: 1. Echogenic liver suspicious for hepatic steatosis. 2. Normal gallbladder and bile ducts. 3. Findings suspicious for nonobstructing bilateral nephrolithiasis. No hydronephrosis or mass. 4. Remainder the exam is normal. Electronically signed by: Sai Whitaker MD 06/08/2024 10:33 AM [facility]
[2024-06-08 06:44] VITALS: BP 118/81; PULSE 80; RESP 14; TEMP 36.4; O2SAT 100; BMI 26.9
[2024-06-08 07:22] LABS: MANUAL DIFF FLAG NO
[2024-06-08 07:25] LABS: Basophils Percent Auto 0.7 % (0-2); Eosinophils Absolute Auto 0.2 X10*3/uL (0.0-0.4); Eosinophils Percent Auto 4.1 % (0-4); Hematocrit 38.9 % (37.0-47.0); Hemoglobin 12.6 g/dl (12.0-16.0); Lymphocytes Absolute Auto 1.6 X10*3/uL (1.2-4.9); Lymphocytes Percent Auto 36.2 % (20-40); Mean Corpuscular HGB Conc 32.4 g/dl (31.0-35.0); Mean Corpuscular Hemoglobin 27.4 pg (27.0-33.0); Mean Corpuscular Volume 84.6 fL (80.0-98.0); Mean Platelet Volume 9.9 fL (9.4-12.3); Monocytes Absolute Auto 0.4 X10*3/uL (0.1-1.2); Monocytes Percent Auto 8.8 % (2-11); Neutrophils Absolute Auto 2.2 x10*3/uL (2.0-8.3); Neutrophils Percent Auto 50.2 % (45-73); Platelet Count 251 X10*3/uL (160-400); Red Cell Distribution Width 13.1 % (11.0-16.0); White Blood Count 4.4 X10*3/uL (4.8-10.8)
[2024-06-08 07:37] LABS: Alanine Aminotransferase 16 U/L (0-31); Albumin Level 3.9 g/dL (3.5-5.0); Alkaline Phosphatase 42 U/L (39-117); Anion Gap 10 (12-20); Aspartate Amino Transferase 18 U/L (5-31); Bilirubin Total 0.2 mg/dL (0.0-1.0); Blood Urea Nitrogen 11 mg/dL (9-16); Calcium 9.5 mg/dL (8.4-10.2); Carbon Dioxide 25 mmol/L (22-29); Chloride 107 mmol/L (96-108); Creatinine Clr Calc Pharmacy 95.3; Estimated Glomerular Filt Rate > 60; Glucose Random 88 mg/dL (60-115); Lipase 24 U/L (8-78); Potassium 4.2 mmol/L (3.3-5.1); Sodium 138 mmol/L (135-145); Total Protein 7.5 g/dL (6.5-8.0)
--- NOTE | 2024-06-08 07:59 | ED.ABDPAIN ---
HPI - Abdominal Pain General Chief Complaint: Abdominal Pain Stated Complaint: stomach pain Time Seen by Provider: 06/08/24 09:43 Source: patient, RN notes reviewed and old records reviewed Mode of arrival: ambulatory History of Present Illness ED Provider: Leticia Mcdowell PA-C [facility] narrative: 33 y/o female with no significant PMHx presents to the ED with epigastric abdominal pain with intermittent radiation to the left upper abdomen x few days. Endorses associated nausea. States pain exacerbated by eating & notes increased frequency of belching during pain episodes. Currently menstruating. Denies fever/chills, vomiting, SOB, chest pain, diarrhea/constipation, dysuria, hematuria, or incontinence. MD elicited complaint: abdominal pain Related Data Previous Rx's ?Medication ?Instructions ?Recorded omeprazole 20 mg capsule,delayed 20 mg PO DAILY #30 caps 02/20/22 release cyclobenzaprine 10 mg tablet 10 mg PO Q8H #14 tabs 06/24/22 ibuprofen 800 mg tablet 800 mg PO Q8H PRN pain #14 tabs 06/24/22 aluminum-mag hydroxide-simethicone 5 ml PO 5XD PRN dyspepsia #30 mL 06/08/24 200 mg-200 mg-20 mg/5 mL oral susp (Maalox Advanced) famotidine 20 mg tablet (Pepcid) 20 mg PO DAILY #14 tabs 06/08/24 Allergies Allergy/AdvReac Type Severity Reaction Status Date / Time ondansetron [From Zofran] Allergy Palpitation Verified 06/08/24 06:46 s Review of Systems Review of Systems Yes all other systems are reviewed and are negative Constitutional: Reports as per [facility] Past Medical History Attestation statement: The following information was validated with the patient. Source: old records reviewed Social History Social History Alcohol intake: current Alcohol intake frequency: holidays/special occasions only Smoked in Last 30 Days: No Use of substances other than those prescribed or required for medical reasons: Yes Substance Use Type: Marijuana Advance Directives: No Advance Directives Information Provided: Yes Do you have a plan to hurt others: No Plan Patient : No Physical Exam ED Vital Signs: Vital Signs - 24 hr 06/08/24 06:44 06/08/24 10:21 Temperature 97.5 F 98.2 F Pulse Rate 80 80 Respiratory Rate 14 18 Blood Pressure 118/81 112/73 Pulse Oximetry 100 99 Oxygen Delivery Method Room Air Room Air BMI result Body Mass Index 26.9 Const General: cooperative, healthy appearing and no acute distress Orientation/consciousness: patient oriented x3 Limitations: no limitations HENMT Head: Yes normal to inspection and Yes atraumatic Ears: hearing grossly normal bilaterally General nose exam: Normal external nose present Face and sinus: Yes normal facial exam Eyes General: appearance normal, both eyes and all related structures EOM: EOMs intact bilaterally Neck Neck: Yes normal visual inspection and Yes no meningeal signs Resp Effort & Inspection: normal respiratory effort and no respiratory distress Cardio Rate: regular rate Heart sounds: S1 normal heart sound present and S2 normal heart sound present GI Inspection: Yes normal to inspection Palpation (GI): Soft to palpation, Tenderness to palpation present (GI) in the epigastrum; with no rebound tenderness, no guarding and not rigid General: Yes no CVA tenderness Back/Spine/Pelvis Back: no CVA tenderness Skin Rashes: no rashes Wounds: no wounds Neuro General: patient oriented x3, tone normal and no meningeal signs Cranial nerves: Yes CN's II-XII intact bilaterally Gait exam (Neuro): Normal gait present Extrem General: Yes normal to inspection Course Course Course Narrative: 33 yo female with no sig PMH here with c/o epigastric pain for a few days that is worse with eating, not chronic NSAID use, no prior surgery, no fevers, she has nausea but no diarrhea. In general she doesn't feel well. No recent weight loss or night sweats. She notes it is worse at bedtime laying down and she wakes up in the AM. At this time labs and will obtain US to evaluate gallbladder pathology -- acute on chronic leukopenia. Labs otherwise reassuring US abdomen complete IMPRESSION: 1. Echogenic liver suspicious for hepatic steatosis. 2. Normal gallbladder and bile ducts. 3. Findings suspicious for nonobstructing bilateral nephrolithiasis. No hydronephrosis or mass. 4. Remainder the exam is normal. >1156-- UA negative Results discussed with patient including worrisome signs and symptoms and strict return precautions, and when to return to the emergency department. They verbalized understanding and feel safe for discharge at this time. Medical Decision Making Medical Decision Making MDM Narrative: 33 y/o female with no significant PMHx presents to the ED with epigastric abdominal pain with intermittent radiation to the left upper abdomen x few days. on exam vital signs stable, NAD, nontoxic appearing, abdomen is soft with mild epigastric tenderness, no rebound or guarding, no CVAT. Concern for GERD/gastritis vs pancreatitis vs ? biliary colic vs ? renal stone. Low suspicion for appendicitis /diverticulitis / colitis or ovarian torsion Plan: EKG, labs, UA, ultrasound, p.o. Maalox /Pepcid and viscous lidocaine, re-evaluate Please refer to course for remaining clinical decision making, interpretation of labs/imaging results, and discussions with consultants and/or family members. Differential Diagnosis Differential Diagnoses: The differential diagnosis associated with the presentation includes As above Admission/Observation Consideration of admission/observation: Escalation of care including admission/observation considered Lab Data MDM Lab Attestation statement: I reviewed the patient's lab results. 06/08/24 07:15 06/08/24 07:15 Labs: Lab Results 06/08/24 06/08/24 Range/Units 07:15 11:33 WBC 4.4 L (4.8-10.8) X10*3/uL RBC 4.60 (4.20-5.50) X10*6/uL Hgb 12.6 (12.0-16.0) g/dl Hct 38.9 (37.0-47.0) % MCV 84.6 (80.0-98.0) fL MCH 27.4 (27.0-33.0) pg MCHC 32.4 (31.0-35.0) g/dl RDW 13.1 (11.0-16.0) % Plt Count 251 (160-400) X10*3/uL MPV 9.9 (9.4-12.3) fL Immature Gran % (Auto) 0.0 (0.0-0.4) % Neut % (Auto) 50.2 (45-73) % Lymph % (Auto) 36.2 (20-40) % [place] % (Auto) 8.8 (2-11) % Eos % (Auto) 4.1 H (0-4) % Baso % (Auto) 0.7 (0-2) % Lymph # (Auto) 1.6 (1.2-4.9) X10*3/uL [place] # (Auto) 0.4 (0.1-1.2) X10*3/uL Eos # (Auto) 0.2 (0.0-0.4) X10*3/uL Baso # (Auto) 0.0 (0.0-0.2) X10*3/uL Abs Immat Gran (auto) 0.00 (0.00-0.03) X10*3/uL Absolute Neuts (auto) 2.2 (2.0-8.3) x10*3/uL Absolute Nucleated RBC 0.000 (0.0-0.012) X10*3/uL Nucleated RBC % (auto) 0.0 (0.0-0.2) /100WBC Sodium 138 (135-145) mmol/L Potassium 4.2 (3.3-5.1) mmol/L Chloride 107 (96-108) mmol/L Carbon Dioxide 25 (22-29) mmol/L Anion Gap 10 L (12-20) BUN 11 (9-16) mg/dL Creatinine 0.92 (0.5-1.4) mg/dL Estim Creat Clear Calc 95.3 Estimated GFR > 60 Random Glucose 88 (60-115) mg/dL Calcium 9.5 (8.4-10.2) mg/dL Magnesium 1.6 (1.6-2.6) mg/dL Total Bilirubin 0.2 (0.0-1.0) mg/dL AST 18 (5-31) U/L ALT 16 (0-31) U/L Alkaline Phosphatase 42 (39-117) U/L Total Protein 7.5 (6.5-8.0) g/dL Albumin 3.9 (3.5-5.0) g/dL Lipase 24 (8-78) U/L Beta HCG, Quant < 2 mIU/mL Urine Color Yellow Urine Appearance Clear Urine pH 8.0 (5.0-9.0) Ur Specific [place] 1.015 (1.005-1.025) Urine Protein Negative (Neg-Trace) mg/dL Urine Glucose (UA) Negative (Negative) mg/dL Urine Ketones Negative (Negative) mg/dL Urine Blood Negative (Negative) Urine Nitrite Negative (Negative) Ur Leukocyte Esterase Negative (Negative) Independent Interpretation I performed an independent interpretation of an: EKG ( my interpretation EKG normal sinus rhythm with sinus arrhythmia rate of 65. QTC 399. Nonspecific T-wave abnormality now evident in anterior leads when compared to prior. No STEMI) and Ultrasound Radiology Impression Discussion of test interpretation with radiology: I have reviewed the radiologist's reading. External Record Review External record reviewed: Inpatient record, Office record, Outpatient record, Prior outpatient labs, Prior outpatient radiology, Primary care record and Outside ED record Tests considered The following testing was considered but not selected: As above Prescription Management I considered prescription management with: Pain Medication Chronic Conditions Patient?s care impacted by: Other Medications Administered Discontinued Medications Generic Name Dose Route Start Last Admin Trade Name Freq PRN Reason Stop Dose Admin Al Hydroxide/Mg Hydroxide 30 ml 06/08/24 10:06/08/24 10:49 Magnesium Hydrox/Alum Hydrox 30 Ml Oral.Susp PO 06/08/24 10:25 30 ml ONCE ONE Administration Famotidine 20 mg 06/08/24 10:06/08/24 10:49 Famotidine 20 Mg Tablet PO 06/08/24 10:25 20 mg ONCE ONE Administration Lidocaine HCl 15 ml 06/08/24 10:06/08/24 10:49 Lidocaine Hcl Viscous 2 % 15 Ml Solution MUCOUS MEM 06/08/24 10:25 15 ml ONCE ONE Administration Discharge Plan Discharge Clinical Impression: Epigastric abdominal pain, Bilateral nephrolithiasis Patient Disposition: Home, Self-Care Instructions: Kidney Stones (ED), Abdominal Pain (ED) Additional Instructions: your blood work and urine are reassuring Your ultrasound shows some fatty liver as well as suspicion of nonobstructing bilateral kidney stones. Please have close follow-up with gastroenterology as well as urology Increase fluid intake Avoid spicy foods, chocolate, caffeine as they potentially can worsen your symptoms Maalox and Pepcid will help with acid reflux. If her pain persists or worsens/becomes unbearable, you are unable to eat or drink or have fever return to the emergency department Prescriptions: New alum-mag hydroxide-simeth [Maalox Advanced] 200-200-20 mg/5 mL suspension 5 ml PO 5XD PRN (Reason: dyspepsia) Qty: 30 0RF Rx Instructions: administer between meals and at bedtime famotidine [Pepcid] 20 mg tablet 20 mg PO DAILY Qty: 14 0RF No Action omeprazole 20 mg capsule,delayed release(DR/EC) 20 mg PO DAILY Qty: 30 0RF ibuprofen 800 mg tablet 800 mg PO Q8H PRN (Reason: pain) Qty: 14 0RF cyclobenzaprine 10 mg tablet 10 mg PO Q8H Qty: 14 0RF Ref[place]: [facility] [place] Group] [facility] [place] [facility]] Ju Hatch MD [Primary Care Provider] - Print Language: Macedonian
[2024-06-08 08:34] LABS: HCG Quantitative < 2 mIU/mL
[2024-06-08 10:21] VITALS: BP 112/73; PULSE 80; RESP 18; TEMP 36.8; O2SAT 99
--- NOTE | 2024-06-08 10:26 | ED.ABDPAIN ---
HPI - Abdominal Pain General Chief Complaint: Abdominal Pain Stated Complaint: stomach pain Time Seen by Provider: 06/08/24 09:43 History of Present Illness HPI narrative: 33 y/o female with no significant PMHx presents to the ED with epigastric pain with intermittent radiation to the left upper abdomen. Endorses nausea, dizziness, and HART. States pain exacerbated by eating. Notes increased frequency of belching. Currently menstruating. Denies fever/chills, vomiting, SOB, chest pain, diarrhea/constipation, dysuria, hematuria, or incontinence. Related Data Previous Rx's ?Medication ?Instructions ?Recorded omeprazole 20 mg capsule,delayed 20 mg PO DAILY #30 caps 02/20/22 release cyclobenzaprine 10 mg tablet 10 mg PO Q8H #14 tabs 06/24/22 ibuprofen 800 mg tablet 800 mg PO Q8H PRN pain #14 tabs 06/24/22 Allergies Allergy/AdvReac Type Severity Reaction Status Date / Time ondansetron [From Zofran] Allergy Palpitation Verified 06/08/24 06:46 s [facility] Social History Social History Alcohol intake: current Alcohol intake frequency: holidays/special occasions only Substance Use Type: Marijuana Physical Exam ED Vital Signs: Vital Signs - 24 hr 06/08/24 06:44 06/08/24 10:21 Temperature 97.5 F 98.2 F Pulse Rate 80 80 Respiratory Rate 14 18 Blood Pressure 118/81 112/73 Pulse Oximetry 100 99 Oxygen Delivery Method Room Air Room Air BMI result Body Mass Index 26.9 Medical Decision Making Lab Data 06/08/24 07:15 06/08/24 07:15 Labs: Lab Results 06/08/24 Range/Units 07:15 WBC 4.4 L (4.8-10.8) X10*3/uL RBC 4.60 (4.20-5.50) X10*6/uL Hgb 12.6 (12.0-16.0) g/dl Hct 38.9 (37.0-47.0) % MCV 84.6 (80.0-98.0) fL MCH 27.4 (27.0-33.0) pg MCHC 32.4 (31.0-35.0) g/dl RDW 13.1 (11.0-16.0) % Plt Count 251 (160-400) X10*3/uL MPV 9.9 (9.4-12.3) fL Immature Gran % (Auto) 0.0 (0.0-0.4) % Neut % (Auto) 50.2 (45-73) % Lymph % (Auto) 36.2 (20-40) % [place] % (Auto) 8.8 (2-11) % Eos % (Auto) 4.1 H (0-4) % Baso % (Auto) 0.7 (0-2) % Lymph # (Auto) 1.6 (1.2-4.9) X10*3/uL [place] # (Auto) 0.4 (0.1-1.2) X10*3/uL Eos # (Auto) 0.2 (0.0-0.4) X10*3/uL Baso # (Auto) 0.0 (0.0-0.2) X10*3/uL Abs Immat Gran (auto) 0.00 (0.00-0.03) X10*3/uL Absolute Neuts (auto) 2.2 (2.0-8.3) x10*3/uL Absolute Nucleated RBC 0.000 (0.0-0.012) X10*3/uL Nucleated RBC % (auto) 0.0 (0.0-0.2) /100WBC Sodium 138 (135-145) mmol/L Potassium 4.2 (3.3-5.1) mmol/L Chloride 107 (96-108) mmol/L Carbon Dioxide 25 (22-29) mmol/L Anion Gap 10 L (12-20) BUN 11 (9-16) mg/dL Creatinine 0.92 (0.5-1.4) mg/dL Estim Creat Clear Calc 95.3 Estimated GFR > 60 Random Glucose 88 (60-115) mg/dL Calcium 9.5 (8.4-10.2) mg/dL Total Bilirubin 0.2 (0.0-1.0) mg/dL AST 18 (5-31) U/L ALT 16 (0-31) U/L Alkaline Phosphatase 42 (39-117) U/L Total Protein 7.5 (6.5-8.0) g/dL Albumin 3.9 (3.5-5.0) g/dL Lipase 24 (8-78) U/L Beta HCG, Quant < 2 mIU/mL Discharge Plan Discharge Prescriptions: No Action omeprazole 20 mg capsule,delayed release(DR/EC) 20 mg PO DAILY Qty: 30 0RF ibuprofen 800 mg tablet 800 mg PO Q8H PRN (Reason: pain) Qty: 14 0RF cyclobenzaprine 10 mg tablet 10 mg PO Q8H Qty: 14 0RF Print Language: Kazakh
--- NOTE | 2024-06-08 10:47 | ECG_ITS ---
Test Reason : epigastric pain Blood Pressure : */* mmHG Vent. Rate : 65 BPM Atrial Rate : 65 BPM P-R Int : 142 ms QRS Dur : 90 ms QT Int : 384 ms P-R-T Axes : 45 55 23 degrees QTcB Int : 399 ms Normal sinus rhythm with sinus arrhythmia Nonspecific T wave abnormality Abnormal ECG When compared with ECG of 07-Feb-2019 16:43, Vent. rate has decreased by 46 bpm Nonspecific T wave abnormality now evident in Anterior leads Referred By: Leticia Mcdowell Electronically Signed By: MING WAGONER MD
[2024-06-08] MEDS: Magnesium Hydrox/Alum Hydrox 30 ML ORAL.SUSP PO (10:49)
[2024-06-08] MEDS: Famotidine 20 MG TABLET PO (10:49)
[2024-06-08] MEDS: Lidocaine HCl Viscous 2 % 15 ML SOLUTION MUCOUS MEM (10:49)
--- NOTE | 2024-06-08 10:50 | PC.NURSE ---
patient a&ox3, vss, pt medicated per order pt had c/o mid abd pain 01/26, us previously performed awaiting results.
[2024-06-08 11:42] LABS: Appearance Urine Clear; Color Urine Yellow; Glucose Urine UA Negative (Negative); Leukocyte Esterase Urine Negative (Negative); Nitrite Urine Negative (Negative); Specific Gravity - Urine 1.015 (1.005-1.025); Urine Blood Negative (Negative); Urine Ketones Negative (Negative); Urine Protein Negative (Neg-Trace)
[2024-06-08 11:45] LABS: Magnesium 1.6 mg/dL (1.6-2.6)
--- OUTSIDE RECORDS SUMMARY | 2024-06-08 11:45 | XMS_ITS | Clinical Summary ---
Author Organization [facility] Address [address] [place] [address] Care Team Providers Care Research Fellow Name Role Phone Unavailable Primary Care Provider Unavailabl e Allergies No known active allergies Medications Medication Sig Dispensed Refills Start Date End Date Status Etonogestrel (IMPLANON SC) Inject under the skin. 0 Active Active Problems No known active problems Family History Medical History Relation Name Comments Diabetes Mother Relation Name Status Comments Mother Social History Tobacco Use Types Packs/Day Years Used Date Smoking Tobacco: Never Smokeless Tobacco: Never Alcohol Use Standard Drinks/Week Comments No 0 (1 standard drink = 0.6 oz pur e alcohol) Sex and Gender Information Value Date Recorded Sex Assigned at Not on file Gender Identity Not on file Sexual Orientation Not on file Last Filed Vital Signs Vital Sign Reading Time Taken Comments Blood Pressure 120/70 12/27/2015 4:06 PM EDT Pulse 74 10/14/2013 11:22 AM EDT Temperature 36.2 ??C (97.2 ??F) 10/14/2013 9:21 AM ED T Respiratory Rate 18 10/14/2013 11:22 AM EDT Oxygen Saturation 99% 10/14/2013 11:22 AM EDT Inhaled Oxygen Concentration - - Weight 80.7 kg (178 lb) 12/27/2015 4:06 PM EDT Height 170.2 cm (5' 7 ) 12/27/2015 4:06 PM EDT Body Mass Index 27.88 12/27/2015 4:06 PM EDT Plan of Treatment Health Maintenance Due Date Last Done Comments Hepatitis B Vaccines (1 of 3 - 3-dose series) 1992 Hepatitis C Screening 1992 COVID-19 Vaccine (#1) 03/20/1993 DTap / Tdap / Td (1 - Tdap) 09/18/2011 Depression Screening 12/26/2016 12/27/2015 Preventative Health Evaluation 12/26/2016 12/27/2015 Cervical Cancer Screening (Pap Smear) 12/26/2018 12/27/2015, 12/27/2015 Influenza Vaccine (#1) 2024 Pneumococcal Vaccine Aged Out No long er eligible based on patient's age to complete this topic RSV Ped < 20 months Aged Out No longe r eligible based on patient's age to complete this topic
--- OUTSIDE RECORDS SUMMARY | 2024-06-08 11:45 | XMS_ITS | Clinical Summary ---
Author Organization [facility] Address [address] [place] [address] Care Team Providers Care Mineral Technologist Name Role Phone Victor Hugo Florez MD Primary Care Provider [phone] Allergies No known active allergies Medications Medication Sig Dispensed Refills Start Date End Date Status metoCLOPRAMIDE (REGLAN) 10 MG tablet Take 10 mg by mouth 4 (four) times a day. Active pyridoxine (VITAMIN B-6) 100 MG tablet Take 100 mg by mouth daily. Active proMETHAZINE (PHENERGAN) 25 MG suppository Insert 1 suppository (25 mg total) into the rectum 4 times daily (every 6 hours) as needed for nausea or vomiting. 12 suppository 01/14/2019 Active Social History Tobacco Use Types Packs/Day Years Used Date Smoking Tobacco: Never Smokeless Tobacco: Never Sex and Gender Information Value Date Recorded Sex Assigned at Not on file Gender Identity Not on file Sexual Orientation Not on file Last Filed Vital Signs Vital Sign Reading Time Taken Comments Blood Pressure 114/71 01/14/2019 9:10 PM EDT Pulse 90 01/14/2019 9:10 PM EDT Temperature 37.1 ??C (98.8 ??F) 01/14/2019 9:10 PM ED T Respiratory Rate 18 01/14/2019 9:10 PM EDT Oxygen Saturation 100% 01/14/2019 9:10 PM EDT Inhaled Oxygen Concentration - - Weight - - Height - - Body Mass Index - - Plan of Treatment Health Maintenance Due Date Last Done Comments Hepatitis C Virus Screening 1992 HIV Screening 2005 DTaP/Tdap/Td Vaccines (1 - Tdap) 09/18/2011 Hepatitis B Vaccines (1 of 3 - 19+ 3-dose series) 09/18/2011 Pap Smear (Ages 21-65) 2013 Influenza Vaccine 12/18/2023 COVID-19 Vaccine (1 - 2023-2 5 season) 2024 HPV Vaccines Aged Out No longer eligi ble based on patient's age to complete this topic Pneumococcal Vaccine: Pediat pili (0-5 Years) and At-Risk Patients (6 to 49 Years) Aged Out No longer eligible b ased on patient's age to complete this topic Care Teams Mineral Technologist Relationship Specialty Start Date End Date Victor Hugo Florez MD [address] [place] [address] PCP - General Internal Medicine 01/14/19
[2024-06-08 12:11] VITALS: BP 116/78; PULSE 78; RESP 18; TEMP 36.8; O2SAT 99
== END 2024-06-08 12:12 | disposition home or self-care (01) ==
PROVIDERS: Emergency Medicine; Physician Assistant; Emergency Provider Emergency Medicine; PCP Internal Medicine
DX: N20.0 Calculus of kidney (principal); R10.13 Epigastric pain; I49.9 Cardiac arrhythmia, unspecified; R94.31 Abnormal electrocardiogram [ECG] [EKG]; R10.2 Pelvic and perineal pain; Z79.899 Other long term (current) drug therapy
CPT/HCPCS: 36415; 76700; 80053; 81003; 83690; 83735; 84702; 85025; 93005; 99284

== ENCOUNTER → 2024-06-08 10:47 | Outpatient (BNV) | payer OTHER, SELFPAY | PROVIDERS: Emergency Provider Emergency Medicine; PCP Internal Medicine; Visit Provider Internal Medicine Cardiovascular Disease | DX: R94.31 Abnormal electrocardiogram [ECG] [EKG] (principal) | CPT/HCPCS: 93010 ==